=== PATIENT | male | born 1940 | race Caucasian/White ===

== ENCOUNTER 2024-06-06 15:33 | Emergency (ER) | payer MEDICARE, SELFPAY ==
--- NOTE | ~2024-06-06 | XR_ITS ---
EXAMINATION: XR chest 1V portable DATE: 06/06/2024 16:06 INDICATION: Cough and shortness of breath. TECHNIQUE: A single frontal view of the chest was obtained. COMPARISON: None. FINDINGS: A calcified left lung nodule is consistent with old granulomatous disease. No pleural effus ion or pneumothorax. The heart size is normal. The sternotomy wires are noted. IMPRESSION: 1. No acute cardiopulmonary disease. Reviewed, dictated and finalized at location A.
[2024-06-06 15:35] VITALS: O2SAT 91
--- NOTE | 2024-06-06 15:38 | ED.URI ---
HPI - URI/Sore Throat General Chief Complaint: Shortness of Breath/Dyspnea Stated Complaint: covid positive today Source: patient Mode of arrival: ambulatory Limitations: no limitations History of Present Illness HPI Narrative: 83-year-old male retirement resident with a history of dementia, diabetes mellitus, hypertension, BPH, COPD, HEDY on oxygen on a p.r.n. basis, CAD/CHF, atrial fibrillation on Xarelto, GERD, OA, chronic leg swelling and currently on cefuroxime presents to the ED for -- tested positive for COVID 20 minutes ago. patient is currently on Molnupiravir -- cough with mucopurulent sputum -- chronic shortness of breath. Patient is saturating 91% on room air. -- bilateral leg swelling with cellulitis for which he is currently on cefuroxime. No fever or chills no chest pain MD elicited complaint: cough Pertinent past history: COPD, asthma and other ( Tested positive for COVID prior to coming) Onset (ago): day(s) ( 2 days) Consistency: constant Severity: mild Description of mucous: yellow Able to tolerate fluids by mouth: Yes Associated symptoms: cough and shortness of breath Treatments prior to arrival: other ( patient is on Molnipiravir for COVID positive) Review of Systems Review of Systems: patient has a history of dementia Constitutional: Constitutional: Reports as per HPI and Reports no additional constitutional complaints Eyes: Eyes: Reports as per HPI and Reports no additional eye complaints ENT: Reports system reviewed and no additional complaints, except as documented and Reports as per HPI Cardiovascular: Cardiovascular: Reports as per HPI and Reports no additional cardiovascular complaints Respiratory: Respiratory: Reports as per HPI, Reports cough, Reports dyspnea and Reports wheezing Gastrointestinal: Gastrointestinal: Reports as per HPI and Reports no additional gastrointestinal complaints Genitourinary: Genitourinary: Reports no additional male genitourinary complaints Musculoskeletal: Musculoskeletal: Reports no additional musculoskeletal complaints and Reports as per HPI Integumentary/Breasts: Skin/Breast: Reports system reviewed and no additional complaints, except as docu Comments: bilateral leg swelling with erythema chronic venous stasis changes both legs Neurologic: Reports system reviewed and no additional complaints, except as documented and Reports as per HPI Psychiatric: Psychiatric: Reports no additional psychiatric complaints and Reports as per HPI Endocrine: Endocrine: Reports no additional endocrine complaints and Reports as per HPI Hematologic/Lymphatic: Hematologic/Lymphatic: Reports no additional hematologic/lymphatic complaints and Reports as per HPI Allergic/Immunologic: Allergic/Immunologic: Reports no additional allergic/immunologic complaints and Reports as per HPI [facility] Past Medical History Medical History (Updated 06/06/24 @ 16:58 by Bunny Alicea MD) Afib Asthma exacerbation in COPD BPH (benign prostatic hyperplasia) CAD (coronary artery disease) CHF (congestive heart failure) Dementia Diabetes mellitus GERD (gastroesophageal reflux disease) Hypertension OA (osteoarthritis) HEDY (obstructive sleep apnea) Surgical History Surgical History (Updated 06/06/24 @ 15:53 by Bunny Alicea MD) Coronary angioplasty status Social History Social History (Updated 06/06/24 @ 15:53 by Bunny Alicea MD) Social History: retirement resident Exam Narrative: temperature 36.2?. Oxygen saturation 91% on room air. Blood pressure 146/35 Const: General: no acute distress Nutritional Appearance: obese Orientation/consciousness: patient oriented x3 Limitations: no limitations HENMT: Head: normal to inspection Ears: external ears normal Face/Nose/Sinus: Normal external nose present Face and sinus: normal facial exam Mouth: Yes Normal oral and palatal mucosa present Throat: posterior oropharynx normal Eyes: Conjuncti
[2024-06-06 15:40] VITALS: BP 146/85; PULSE 78; RESP 24; TEMP 36.2; O2SAT 91
--- NOTE | 2024-06-06 15:55 | ECG_ITS ---
Test Date: 2024-06-06 16:09:00 Measurements Intervals [place] Rate: 69 P: 0 CT: 0 QRS: 52 QRSD: 90 T: 166 QT: 373 QTc: 400 Interpretive Statements ATRIAL FIBRILLATION NONSPECIFIC T-WAVE ABNORMALITY No previous ECG available for comparison Electronically Signed On 06-06-2024 17:00:47 CDT by Virgil Walsh M.D.
[2024-06-06 16:00] VITALS: BP 120/82; PULSE 71; RESP 22; O2SAT 91
[2024-06-06 16:08] LABS: Hematocrit 45.8 % (37.0-46.0); Hemoglobin 14.8 g/dL (12.4-15.3); Immature Platelet Fraction Pct 21.5 % (1.0-7.0); Mean Corpuscular HGB Conc 32.3 g/dL (32-36); Mean Corpuscular Hemoglobin 29.2 pg (27.0-31.0); Mean Corpuscular Volume 90.5 fL (78.0-102.0); Mean Platelet Volume 13.7 fl (8.7-11.0); Platelet Count Result 172 K/mm3 (150-420); Red Blood Count 5.06 M/mm3 (4.70-6.10); Red Cell Distribution Width 13.3 % (11.6-14.4); White Blood Count 6.9 K/mm3 (4.8-10.8)
[2024-06-06 16:23] LABS: Alanine Aminotransferase 16 U/L (16-63); Albumin Level 3.2 g/dL (3.4-5.0); Alkaline Phosphatase 281 U/L (46-116); Anion Gap 4 mmol/L (4-12); Aspartate Amino Transferase 23 U/L (15-37); Bilirubin,Total 0.6 mg/dL (0.00-1.00); Blood Urea Nitrogen 26 mg/dL (7-18); Carbon Dioxide 37 mmol/L (21-32); Chloride 99 mmol/L (98-108); Estimated CRCL calculation 59 ml/min; Estimated Glomerular Filt Rate > 60; Glucose 248 mg/dL (70-99); NT Pro B Type Natriuretic Pept 258 pg/mL (0-450); Osmolality Calculated 302 mOsm/kg (285-295); Potassium 4.7 mmol/L (3.5-5.1); Sodium 140 mmol/L (136-145); Total Protein 6.9 g/dL (6.4-8.2); Troponin I 11.1 ng/L (0.00-60.4)
[2024-06-06 16:39] LABS: Band Neutrophils Percent 0 % (0-6); Eosinophils Percent Manual 3 % (1-6); Lymphocytes Absolute Manual 0.82 K/mm3 (1.1-4.5); Lymphocytes Percent Manual 12 % (18-44); Monocytes Absolute Manual 0.96 K/mm3 (0.1-0.90); Monocytes Percent Manual 14 % (3-9); Neutrophils Absolute Manual 4.89 K/mm3 (1.3-6.7); Neutrophils Percent Manual 71 % (46-73); Platelet Estimate Adequate (Adequate); Total Cells Counted 100
[2024-06-06 17:01] VITALS: BP 128/78; PULSE 68; RESP 20; TEMP 36.9; O2SAT 92
--- NOTE | 2024-06-06 17:25 | PC.NURSE ---
pt return to retirement via personal wheelchair with retirement staff at this time. pt stable and alert. declined need for personal oxygen for transport back to retirement. pt had no need for oxygen while in er. pt departed with all personal belongings , cane, cell phone and glasses.
== END 2024-06-06 17:04 ==
PROVIDERS: Emergency Provider Internal Medicine Critical Care Medicine; PCP Family Medicine
DX: U07.1 COVID-19 (principal); I48.20 Chronic atrial fibrillation, unspecified; I11.0 Hypertensive heart disease with heart failure; I50.9 Heart failure, unspecified; J44.9 Chronic obstructive pulmonary disease, unspecified; F03.90 Unspecified dementia, unspecified severity, without behavioral disturbance, psychotic disturbance, mood disturbance, and anxiety; E11.9 Type 2 diabetes mellitus without complications; I25.10 Atherosclerotic heart disease of native coronary artery without angina pectoris; I48.91 Unspecified atrial fibrillation; Z79.01 Long term (current) use of anticoagulants; Z79.899 Other long term (current) drug therapy; Z99.81 Dependence on supplemental oxygen
CPT/HCPCS: 36415; 71045; 80053; 83880; 84484; 85025; 85055; 93005; 99284

== ENCOUNTER 2024-06-21 17:28 | Inpatient (IN) | payer MEDICARE, SELFPAY ==
[2024-06-21] VITALS (21 sets, daily range): BP systolic 99–136; BP diastolic 61–90; PULSE 41–67; RESP 21–32; TEMP 36.4–36.9; O2SAT 83–99; BMI 41.6
--- NOTE | ~2024-06-21 | XR_ITS ---
XR chest 1V portable Ordering provider: Waldemar Ramos MD History: 83 years Male with . COPD/pneumonia. 24 hour f/u . Comparison: June 21, 2024 FINDINGS: MEDIASTINUM: The cardiac silhouette is slightly enlarged. Congestive aman. Postoperative changes in the mediastinum. LUNGS: No infiltrates, effusions or pneumothorax. OTHER: No free air under the diaphragm. IMPRESSION: No acute cardiopulmonary pathology. Reviewed, dictated and finalized at location A.
--- NOTE | ~2024-06-21 | XR_ITS ---
EXAMINATION: XR chest 1V portable Exam Date/Time: 06/21/2024 18:00 CDT HISTORY: shortness of breath Comparison: 06/06/2024. RESULT: Lines, tubes, and devices: Intact sternotomy wires. Lungs and pleura: Low volumes with crowding. Mild diffuse reticular opacities. Minimal streaky bibas ilar opacities, likely scar/atelectasis. Calcified left lower lung granuloma. Cardiomediastinal silhouette: Stable. Other: No acute osseous or upper abdominal finding. IMPRESSION: Mild interstitial edema. Reviewed, dictated and finalized at location K. IMPRESSION: Mild interstitial edema.
--- NOTE | 2024-06-21 17:34 | ECG_ITS ---
Test Date: 2024-06-21 17:57:11 Measurements Intervals [place] Rate: 64 P: 0 CO: 0 QRS: 20 QRSD: 98 T: -16 QT: 408 QTc: 421 Interpretive Statements ATRIAL FIBRILLATION NONSPECIFIC ST & T-WAVE ABNORMALITY ABNORMAL RHYTHM ECG Compared to ECG 06/06/2024 16:09:00 No significant changes Electronically Signed On 06-22-2024 13:00:12 CDT by Waldemar Nevarez M.D.
[2024-06-21] MEDS: methylPREDNISolone SOD SUCC 125 MG VIAL IV PUSH (17:45)
[2024-06-21] MEDS: FUROSEMIDE INJ 40 MG/4 ML VIAL IV PUSH (17:45)
[2024-06-21] MEDS: IPRATROPIUM 0.5 MG/ALBUTEROL SULFATE 2.5 MG AMPUL.NEB 3 ML INHALATION ×2 (17:45→23:56)
[2024-06-21 17:59] LABS: Hematocrit 44.4 % (37.0-46.0); Hemoglobin 13.7 g/dL (12.4-15.3); Immature Platelet Fraction Pct 20.4 % (1.0-7.0); Mean Corpuscular HGB Conc 30.9 g/dL (32-36); Mean Corpuscular Hemoglobin 29.4 pg (27.0-31.0); Mean Corpuscular Volume 95.3 fL (78.0-102.0); Mean Platelet Volume 13.9 fl (8.7-11.0); Platelet Count Result 158 K/mm3 (150-420); Red Blood Count 4.66 M/mm3 (4.70-6.10); Red Cell Distribution Width 13.7 % (11.6-14.4); White Blood Count 6.8 K/mm3 (4.8-10.8)
[2024-06-21] MEDS: MAGNESIUM SULF 2 GM/WATER 50ML 2 GM/50 ML BAG IVPB (18:01)
[2024-06-21 18:14] LABS: D Dimer 0.22 mg/L (0.19-0.50); INR 1.2; Partial Thromboplastin Time 30.2 Sec (23.9-30.70); Prothrombin Time 12.7 Seconds (9.50-12.1)
[2024-06-21 18:20] LABS: Band Neutrophils Percent 0 % (0-6); Basophils Absolute Manual 0.06 K/mm3 (0-0.1); Basophils Percent Manual 1 % (0-1); Eosinophils Percent Manual 6 % (1-6); Lymphocytes Percent Manual 25 % (18-44); Monocytes Absolute Manual 0.47 K/mm3 (0.1-0.90); Monocytes Percent Manual 7 % (3-9); Neutrophils Absolute Manual 4.14 K/mm3 (1.3-6.7); Neutrophils Percent Manual 61 % (46-73); Platelet Estimate Adequate (Adequate); Total Cells Counted 100
[2024-06-21 18:21] LABS: Alanine Aminotransferase 14 U/L (16-63); Albumin Level 3.1 g/dL (3.4-5.0); Alkaline Phosphatase 288 U/L (46-116); Anion Gap 0 mmol/L (4-12); Aspartate Amino Transferase 12 U/L (15-37); Bilirubin,Total 0.4 mg/dL (0.00-1.00); Blood Urea Nitrogen 13 mg/dL (7-18); Calcium 9.2 mg/dL (8.5-10.1); Carbon Dioxide 43 mmol/L (21-32); Chloride 99 mmol/L (98-108); Estimated CRCL calculation 65 ml/min; Estimated Glomerular Filt Rate > 60; Glucose 153 mg/dL (70-99); Magnesium 1.8 mg/dL (1.8-2.4); NT Pro B Type Natriuretic Pept 331 pg/mL (0-450); Osmolality Calculated 297 mOsm/kg (285-295); Potassium 4.1 mmol/L (3.5-5.1); Sodium 142 mmol/L (136-145); Total Protein 6.6 g/dL (6.4-8.2)
[2024-06-21 18:41] LABS: Influenza A QL RT-PCR Negative (Negative); Influenza B QL RT-PCR Negative (Negative); RSV RNA, RT-PCR Negative (Negative); SARS-CoV-2 RNA PCR Negative (Negative)
[2024-06-21] MEDS: GLUCAGON FOR INJ 1 MG VIAL 2 MG IV PUSH (18:55)
--- NOTE | 2024-06-21 19:15 | ED.SOB ---
HPI - SOB/Dyspnea General Chief Complaint: Shortness of Breath/Dyspnea Stated Complaint: COUGH Time Seen by Provider: 06/21/24 17:30 Source: patient and EMS Mode of arrival: EMS Limitations: physical limitation and dementia History of Present Illness HPI Narrative: this is a 89-year-old male with history atrial fibrillation CHF obstructive sleep apnea presents from [facility] with increased shortness of breath over the past couple hours with a nonproductive cough patient recently was diagnosed with COVID approximately 10 days ago. Patient denies having any chest pain no nausea vomiting no abdominal pain no fever chills. MD elicited complaint: shortness of breath and cough Pertinent past history: congestive heart failure Onset (ago): hour(s) Related Data Home Medications Medication Instructions Recorded Confirmed aspirin 81 mg tablet,delayed 81 mg PO DAILY 06/07/24 06/21/24 release (Adult Aspirin Regimen) atorvastatin 10 mg tablet 10 mg PO QHS 06/07/24 06/21/24 cetirizine 10 mg tablet 10 mg PO DAILY PRN ALLERGIES 06/07/24 06/21/24 diltiazem HCl 240 mg capsule,24 240 mg PO DAILY 06/07/24 06/21/24 hr,extended release doxazosin 2 mg tablet 2 mg PO DAILY 06/07/24 06/21/24 furosemide 40 mg tablet 40 mg PO QAM 06/07/24 06/21/24 insulin glargine 100 unit/mL 42 unit subcut QPM 06/07/24 06/21/24 subcutaneous solution insulin lispro 100 unit/mL 1 sliding scale dose subcut 06/07/24 06/21/24 subcutaneous pen USEASDIRECTD magnesium oxide 240 mg PO DAILY 06/07/24 06/21/24 metoprolol tartrate 50 mg tablet 50 mg PO DAILY 06/07/24 06/21/24 omeprazole 20 mg tablet,delayed 20 mg PO DAILY 06/07/24 06/21/24 release potassium chloride 20 mEq 20 meq PO DAILY 06/07/24 06/21/24 tablet,extended release rivaroxaban 15 mg tablet 15 mg PO QPM 06/07/24 06/21/24 Allergies Allergy/AdvReac Type Severity Reaction Status Date / Time No Known Allergies Allergy Verified 06/07/24 12:57 Review of Systems Review of Systems: All systems reviewed & are unremarkable except as noted in HPI and below PMFSH Past Medical History Medical History Afib Asthma exacerbation in COPD BPH (benign prostatic hyperplasia) CAD (coronary artery disease) CHF (congestive heart failure) Dementia Diabetes mellitus GERD (gastroesophageal reflux disease) Hypertension OA (osteoarthritis) HEDY (obstructive sleep apnea) Surgical History Surgical History Coronary angioplasty status Social History Social History Social History: [facility] resident Smoking status: Never smoker Exam Const: General: no acute distress and alert Nutritional Appearance: obese Limitations: physical limitations HENMT: Head: normal to inspection Chest: Chest palpation & inspection: normal inspection of the chest Resp: Effort & Inspection: normal respiratory effort Auscultation: wheezes and diminished lung sounds Cardio: Rate: regular rate Rhythm: abnormal rhythm GI: GI Palp: Yes Soft to palpation Auscultation: normal bowel sounds : General: Yes bladder normal to palpation Neuro: General: patient oriented x3, moves all extremities, no meningeal signs and no focal motor deficits Extrem: General: edema Course Course Emergency Course: patient presented with some shortness of, O2 sats initially in the low 90s and on 2L of O2 is satting at 95%, EKG performed shows that he has atrial fibrillation heart rate 64. Patient while sleeping does Jose Alfredo down to the 38 to 40 range but then comes back up to the 60s when alert and awake. Patient is denies any chest pain there is no nausea or vomiting. Chest x-ray performed shows that there is some linear opacities, has a negative COVID, his BNP is 331 with a negative troponin negative D-dimer. Patient with linear opacities on chest x-ray started ceftria
[2024-06-21] MEDS: SODIUM CHLORIDE 0.9% IV 1,000 ML 999 ML IV CONT (19:27)
[2024-06-21] MEDS: AZITHROMYCIN 500 MG/NS 250 ML 500 MG/250 ML BAG 250 MG IVPB (19:27)
--- NOTE | 2024-06-21 19:33 | PC.NURSE ---
Report received, pt resting, monitored per orders, POC discussed and ERP will admit for 23 hr obs. Pt is somewhat alert, slightly lethargic but awakens to voice. He is able to help move himself to clean and take off urinated depend at this time.
--- NOTE | 2024-06-21 19:41 | PC.NURSE ---
Called KATIE Frances on 2nd floor and report given. Pt will go to Rm 207.
[2024-06-21] MEDS: ATORVASTATIN 10 MG TABLET PO (21:17)
[2024-06-21] MEDS: SODIUM CHLORIDE 0.9% IV 1,000 ML 100 ML IV CONT (21:17)
[2024-06-21] MEDS: RIVAROXABAN 15 MG TABLET PO (21:17)
[2024-06-21] MEDS: INSULIN GLARGINE (*BKC) 1,000 UNITS/10 ML VIAL 42 UNITS SUB-Q (21:37)
[2024-06-21 21:42] LABS: Glucose Point of Care 184 mg/dl (65-105)
--- NOTE | 2024-06-21 21:50 | ADMGEN ---
This patient, Arsenio Contreras Sr., was admitted to 2nd Floor Room 207-1. Patient oriented to hospital policies and general routines including ID bracelet, bed and alarms, visiting hours, pain management, procedures, bathroom and other care routines, personal items, smoking policy, room service/diet, and visiting hours. Information on how to activate the Rapid Response Team has been discussed. Patient are encouraged to report perceived risks to care and to ask questions if they do not understand what they are told or what they should do.
[2024-06-21] MEDS: methylPREDNISolone SOD SUCC 40 MG VIAL IV PUSH (23:56)
[2024-06-22] VITALS (13 sets, daily range): BP systolic 118–163; BP diastolic 59–75; PULSE 63–98; RESP 16–24; TEMP 36–36.5; O2SAT 89–99
[2024-06-22 05:15] LABS: Hematocrit 40.9 % (37.0-46.0); Hemoglobin 12.8 g/dL (12.4-15.3); Immature Platelet Fraction Pct 18.1 % (1.0-7.0); Mean Corpuscular HGB Conc 31.3 g/dL (32-36); Mean Corpuscular Hemoglobin 29.7 pg (27.0-31.0); Mean Corpuscular Volume 94.9 fL (78.0-102.0); Mean Platelet Volume 13.6 fl (8.7-11.0); Platelet Count Result 150 K/mm3 (150-420); Red Blood Count 4.31 M/mm3 (4.70-6.10); Red Cell Distribution Width 13.4 % (11.6-14.4); White Blood Count 5.9 K/mm3 (4.8-10.8)
[2024-06-22] MEDS: IPRATROPIUM 0.5 MG/ALBUTEROL SULFATE 2.5 MG AMPUL.NEB 3 ML INHALATION ×3 (05:28→18:27)
[2024-06-22 05:29] LABS: Band Neutrophils Percent 0 % (0-6); Basophils Percent Manual 0 % (0-1); Eosinophils Percent Manual 0 % (1-6); Lymphocytes Absolute Manual 0.41 K/mm3 (1.1-4.5); Lymphocytes Percent Manual 7 % (18-44); Metamyelocytes Percent 0 %; Monocytes Percent Manual 0 % (3-9); Neutrophils Absolute Manual 5.48 K/mm3 (1.3-6.7); Neutrophils Percent Manual 93 % (46-73); Platelet Estimate Adequate (Adequate); Total Cells Counted 100
[2024-06-22 05:30] LABS: Alanine Aminotransferase 13 U/L (16-63); Albumin Level 2.7 g/dL (3.4-5.0); Alkaline Phosphatase 263 U/L (46-116); Anion Gap 2 mmol/L (4-12); Aspartate Amino Transferase 14 U/L (15-37); Bilirubin,Total 0.4 mg/dL (0.00-1.00); Blood Urea Nitrogen 14 mg/dL (7-18); Calcium 8.7 mg/dL (8.5-10.1); Carbon Dioxide 40 mmol/L (21-32); Chloride 100 mmol/L (98-108); Estimated CRCL calculation 70 ml/min; Estimated Glomerular Filt Rate > 60; Glucose 227 mg/dL (70-99); Osmolality Calculated 301 mOsm/kg (285-295); Potassium 4.6 mmol/L (3.5-5.1); Sodium 142 mmol/L (136-145); Total Protein 5.9 g/dL (6.4-8.2)
[2024-06-22] MEDS: methylPREDNISolone SOD SUCC 40 MG VIAL IV PUSH ×3 (05:31→17:25)
[2024-06-22 05:49] LABS: NT Pro B Type Natriuretic Pept 297 pg/mL (0-450)
[2024-06-22] MEDS: SODIUM CHLORIDE 0.9% IV 1,000 ML 100 ML IV CONT (06:46)
[2024-06-22 07:48] LABS: Glucose Point of Care 219 mg/dl (65-105)
[2024-06-22] MEDS: INSULIN HUMAN LISPRO (*BKC) 1,000 UNITS/10 ML VIAL SUB-Q ×3 (08:15→17:14)
[2024-06-22] MEDS: MAGNESIUM OXIDE 400 MG TABLET 200 MG PO (08:17)
[2024-06-22] MEDS: POTASSIUM CHLORIDE 20 MEQ ER TABLET PO (08:17)
[2024-06-22] MEDS: DOXAZOSIN MESYLATE 2 MG TABLET PO (08:17)
[2024-06-22] MEDS: FUROSEMIDE 40 MG TABLET PO (08:19)
[2024-06-22] MEDS: PANTOPRAZOLE 40 MG TABLET PO (08:19)
[2024-06-22] MEDS: ASPIRIN 81 MG ENTERIC TABLET PO (08:19)
--- NOTE | 2024-06-22 11:13 | PM.IMHP ---
H&P: HPI History of Present Illness Date/Time: 06/22/24 11:13 Chief Complaint: shortness of breath Narrative: This is an 83-year-old male with a past medical history significant for COPD, AFib, CAD s/p stents and CABG x 2, heart failure with preserved EF, DJD, diabetes, GERD, BPH, HEDY on CPAP, and dementia baseline orientation A&O x1 who presented from a [facility] with complaints of shortness of breath. Given his dementia, the history is obtained through review of the medical record. When I asked the patient why he came to the emergency room he states that he does not know. I asked him if he normally wears oxygen at baseline and he states I guess I do . On exam he is resting in bed on 2 L nasal cannula in no acute distress. He denies headache, dizziness, chest pain, abdominal pain, nausea, or vomiting. He does tell me that he chronically has shortness of breath but he does not feel like it is worse at this time. He also reports a chronic cough but states he is coughing up more sputum than usual and it is green in color. He denies fever or chills. States he is eating and drinking without difficulty. He reports his last bowel movement was yesterday and is urinating appropriately. The patient had a recent admission on 06/02/24 at [facility] for new atrial fibrillation with RVR, acute on chronic diastolic heart failure, and bilateral cellulitis of the lower extremities. He was transferred there from [facility] in [place] after presenting via EMS after being found in a ditch in his car. His daughter reported at that time that he is confused at baseline but was becoming more forgetful. According to the records he was missing from home for 7 hours before police found him and EMS was called. He normally lives alone on his daughters property but is currently a swing bed patient at [facility] and [facility]. In the emergency room labs were mostly unremarkable. He had a normal white count of 6.8, PT 12.7, INR 1.2, CO2 43, glucose 153, AST 12, ALT 14, alk-phos 288, and albumin 3.1. Upper respiratory viral panel was negative. chest x-ray was performed and showed mild interstitial edema. blood cultures were obtained and are pending. EKG showed atrial fibrillation with a rate of 64. In the ER he had an episode of bradycardia down to 38 beats per minute. He was given glucagon for possible beta-marianne toxicity and monitored overnight on telemetry without recurrence of bradycardia. He was started on IV fluids,Rocephin, azithromycin, and IV steroids for possible pneumonia versus COPD exacerbation. He was also given IV Lasix 40 mg x 1. He was admitted to the medical floor under the hospitalist service for further management of shortness of breath. Review of Systems Review of Systems: ROS unobtainable: Yes unobtainable due to medical condition PMFSH Past Medical History Medical History Afib Asthma exacerbation in COPD BPH (benign prostatic hyperplasia) CAD (coronary artery disease) CHF (congestive heart failure) Dementia Diabetes mellitus GERD (gastroesophageal reflux disease) Hypertension OA (osteoarthritis) HEDY (obstructive sleep apnea) Surgical History Surgical History Coronary angioplasty status Social History Social History Social History: [facility] resident Smoking status: Never smoker Second hand tobacco smoke exposure: No Alcohol intake: never Substance use: never Substance use type: does not use Do You Feel Safe in your Home?: Yes Lack of Transportation: No Lack of Food: Never True Current Housing: I Have Housing Concerned About Future Housing: No Difficulty Paying Gas/Electric Bills: No Difficulty Paying for Meds: No Currently Unemployed: No Education: High School Diploma/GED Difficulty w/ Childc
[2024-06-22 11:50] LABS: Glucose Point of Care 369 mg/dl (65-105)
[2024-06-22] MEDS: dilTIAZem HCL 30 MG TABLET 60 MG PO ×2 (12:13→17:24)
--- NOTE | 2024-06-22 15:06 | PC.NURSE ---
Patient had diltiazem 60 mg at noon med pass and pulse currently in low to mid 70s.
[2024-06-22 16:41] LABS: Glucose Point of Care 301 mg/dl (65-105)
[2024-06-22] MEDS: AZITHROMYCIN 500 MG/NS 250 ML 500 MG/250 ML BAG 250 MG IVPB (17:18)
[2024-06-22] MEDS: RIVAROXABAN 15 MG TABLET PO (17:24)
[2024-06-22] MEDS: INSULIN GLARGINE (*BKC) 1,000 UNITS/10 ML VIAL 42 UNITS SUB-Q (17:27)
[2024-06-22] MEDS: ATORVASTATIN 10 MG TABLET PO (20:29)
[2024-06-22 22:14] LABS: Glucose Point of Care 314 mg/dl (65-105)
[2024-06-23] VITALS (14 sets, daily range): BP systolic 120–144; BP diastolic 56–86; PULSE 83–103; RESP 17–24; TEMP 36.2–36.9; O2SAT 90–97
[2024-06-23] MEDS: IPRATROPIUM 0.5 MG/ALBUTEROL SULFATE 2.5 MG AMPUL.NEB 3 ML INHALATION ×4 (00:22→18:20)
[2024-06-23] MEDS: dilTIAZem HCL 30 MG TABLET 60 MG PO ×4 (00:24→17:39)
[2024-06-23] MEDS: methylPREDNISolone SOD SUCC 40 MG VIAL IV PUSH ×2 (00:29→05:57)
[2024-06-23 05:48] LABS: Hemoglobin 12.5 g/dL (12.4-15.3); Immature Granulocyte Percent A 0.7 % (0.0-0.0); Immature Platelet Fraction Pct 16.6 % (1.0-7.0); Lymphocytes Absolute Auto 0.38 K/mm3 (1.10-4.50); Lymphocytes Percent Auto 2.6 % (18.0-42.0); Mean Corpuscular HGB Conc 32.1 g/dL (32-36); Mean Corpuscular Hemoglobin 29.7 pg (27.0-31.0); Mean Corpuscular Volume 92.6 fL (78.0-102.0); Mean Platelet Volume 13.7 fl (8.7-11.0); Monocytes Absolute Auto 0.11 K/mm3 (0.10-0.90); Monocytes Percent Auto 0.8 % (2.0-11.0); Neutrophils Absolute Auto 13.77 K/mm3 (1.70-7.20); Neutrophils Percent Auto 95.9 % (50.0-70.0); Platelet Count Result 163 K/mm3 (150-420); Red Blood Count 4.21 M/mm3 (4.70-6.10); Red Cell Distribution Width 13.7 % (11.6-14.4); White Blood Count 14.4 K/mm3 (4.8-10.8)
[2024-06-23 05:57] LABS: Alanine Aminotransferase 10 U/L (16-63); Albumin Level 2.9 g/dL (3.4-5.0); Alkaline Phosphatase 244 U/L (46-116); Anion Gap 2 mmol/L (4-12); Aspartate Amino Transferase 10 U/L (15-37); Bilirubin,Total 0.4 mg/dL (0.00-1.00); Blood Urea Nitrogen 27 mg/dL (7-18); Carbon Dioxide 38 mmol/L (21-32); Chloride 100 mmol/L (98-108); Estimated CRCL calculation 57 ml/min; Estimated Glomerular Filt Rate 60; Glucose 317 mg/dL (70-99); Magnesium 2.1 mg/dL (1.8-2.4); Osmolality Calculated 307 mOsm/kg (285-295); Potassium 4.5 mmol/L (3.5-5.1); Sodium 140 mmol/L (136-145)
--- NOTE | 2024-06-23 07:27 | PM.IMPN ---
Progress Note: A&P Assessment and Plan (1) COPD (chronic obstructive pulmonary disease): Qualifiers: COPD type: unspecified COPD Qualified Code(s): J44.9 - Chronic obstructive pulmonary disease, unspecified Code(s): J44.9 - Chronic obstructive pulmonary disease, unspecified Status: Inactive Assessment and Plan: patient presents with complaints of increased shortness of breath, increased sputum production. He chronically wears 2 L nasal cannula and uses CPAP night for HEDY. On exam he has diminished lung sounds with expiratory wheeze. azithromycin started, he received 1 dose of Rocephin in the ER. Less suspicious of pneumonia more concern for COPD exacerbation. Hold off on adding Rocephin for now. Should he worsen clinically then I will resume. IV steroids with methylprednisone 60 mg q.6. Wheezing has resolved. Will transition to PO prednisone. Blood glucose has been elevated with addition of steroids. Will add 7 units TID with meals and SSI. Duo-Nebs q.6 Incentive spirometer Suspect his shortness of breath may have been related to his bradycardia (2) Afib: Qualifiers: Atrial fibrillation type: unspecified Qualified Code(s): I48.91 - Unspecified atrial fibrillation Code(s): I48.91 - Unspecified atrial fibrillation Status: Acute Assessment and Plan: Recently in a-fib RVR converted with IV diltiazem. He was started on diltiazem 240 mg ER PO daily and metoprolol succinate 50 mg PO daily at discharge. Here now with shortness of breath and bradycardia (heart rate in 30s) in the ED. Anticoagulation with Xarelto He was given glucagon for possible beta marianne toxicity On telemetry he is in a-fib with rates 80-90's Continue to hold metoprolol Start diltiazem 60 mg every 6 hours If he has no more recurrence of bradycardia, can transition back to ER diltiazem. (3) CHF (congestive heart failure): Code(s): I50.9 - Heart failure, unspecified Status: Acute Assessment and Plan: Diastolic HF with preserved EF per OSH records Continue home medications of Lasix 40 mg daily. He received 1 x dose of IV lasix 40 mg in the ED. Strict I&O, daily weights Heart Healthy, DM diet RAMILA wraps to BLE (4) HEDY (obstructive sleep apnea): Code(s): G47.33 - Obstructive sleep apnea (adult) (pediatric) Status: Acute Assessment and Plan: CPAP home settings. Will ask [facility] to bring his CPAP Plan DVT prophylaxis: Xarelto Glycemic control: Sliding scale insulin high dose with addition of 7 units TID with meals, a.c. HS Accu-Cheks, hypoglycemia protocol, Lantus 42 units Code Status: Full code Disposition: 83-year-old male who presents from local [facility] as a [facility] patient complains of shortness of breath. Undo have a COPD exacerbation and bradycardia. Rate control medications were held, patient is placed on telemetry, and received IM glucagon possible beta-marianne toxicity. PT/OT are consulted. Medication reconciliation obtained via the following: Nurse completed on admission The file time of this note does not necessarily represent the time the patient was seen. Subjective Date/time seen: 06/23/24 07:27 Interval history: This is an 83-year-old male with a past medical history significant for COPD chronically on 2 L NC, AFib on xarelto, CAD s/p stents and CABG x 2, heart failure with preserved EF, DJD, diabetes, GERD, BPH, HEDY on CPAP, and dementia baseline orientation A&O x1 who [facility] from a [facility] with complaints of shortness of breath. 06/23: no acute events overnight. He still feels congested and having his productive cough but he is no longer having expiratory wheeze. Pleasantly confused and oriented to self only which is his baseline. Review of Systems Review of Systems: ROS unobtain
[2024-06-23] MEDS: INSULIN HUMAN LISPRO (*BKC) 1,000 UNITS/10 ML VIAL SUB-Q (08:25)
[2024-06-23] MEDS: INSULIN HUMAN LISPRO (*BKC) 1,000 UNITS/10 ML VIAL 7 UNITS SUB-Q ×3 (08:25→17:39)
[2024-06-23] MEDS: MAGNESIUM OXIDE 400 MG TABLET 200 MG PO (08:26)
[2024-06-23] MEDS: PANTOPRAZOLE 40 MG TABLET PO (08:26)
[2024-06-23] MEDS: ASPIRIN 81 MG ENTERIC TABLET PO (08:26)
[2024-06-23] MEDS: POTASSIUM CHLORIDE 20 MEQ ER TABLET PO (08:26)
[2024-06-23] MEDS: LORATADINE 10 MG TABLET PO (08:26)
[2024-06-23] MEDS: DOXAZOSIN MESYLATE 2 MG TABLET PO (08:27)
[2024-06-23] MEDS: FUROSEMIDE 40 MG TABLET PO (08:27)
[2024-06-23 11:35] LABS: Glucose Point of Care 422 mg/dl (65-105)
--- NOTE | 2024-06-23 11:40 | PC.NURSE ---
DONNA Ivy notified of patients blood sugar of 422. N.O. received for insulin 10 units of lipro x1 in addition to scheduled 7 unit of lispro.
[2024-06-23] MEDS: predniSONE 20 MG TABLET 40 MG PO (11:49)
[2024-06-23] MEDS: INSULIN HUMAN LISPRO (*BKC) 1,000 UNITS/10 ML VIAL 10 UNITS SUB-Q ×2 (11:49→17:39)
--- NOTE | 2024-06-23 14:30 | PC.NURSE ---
DONNA Ivy notified of patient pulling IV site out and not wanting it restarted. N.O. received to change IV azithromycin to P.O.
[2024-06-23 16:29] LABS: Glucose Point of Care 401 mg/dl (65-105)
--- NOTE | 2024-06-23 16:50 | PC.NURSE ---
Keisha Vázquez, Hospitalist, notified that patient's heart rate is currently 93 and blood sugar is currently 401. New orders received.
[2024-06-23] MEDS: RIVAROXABAN 15 MG TABLET PO (17:39)
[2024-06-23 20:26] LABS: Glucose Point of Care 358 mg/dl (65-105)
[2024-06-23] MEDS: INSULIN GLARGINE (*BKC) 1,000 UNITS/10 ML VIAL 50 UNITS SUB-Q (20:27)
[2024-06-23] MEDS: METOPROLOL TARTRATE 25 MG TABLET PO (20:27)
[2024-06-23] MEDS: ATORVASTATIN 10 MG TABLET PO (20:27)
--- NOTE | 2024-06-24 00:04 | PC.NURSE ---
This RN found pt sitting at bedside attempting to get up independently. This RN asked the pt where he was going to which the pt replied I'm going home. This RN reminded pt it is around midnight. Pt replied, I don't care I wanna go fucking home. Pt proceeded w/taking off his telemetry unit independently and pt is now refusing to wear the unit. This RN attempted to educate the pt on why he was on telemetry and the risks of not having it on and pt verbalized he understood and still wanted the equipment off. This RN was able to communicate w/the pt that is would be better to wait until morning to go home. This RN then assisted pt w/getting dressed so per pt I'll be ready to go home, I'm ready to go home. Pt now agreeable to laying in bed to get some rest. Sonal Maldonado (charge nurse) attempted to contact the family and spoke w/the pt's granddaughter. Granddaughter communicated to Sonal that she will try to get a hold of someone to see if we can either calm the pt or see where to proceed further.
[2024-06-24] MEDS: IPRATROPIUM 0.5 MG/ALBUTEROL SULFATE 2.5 MG AMPUL.NEB 3 ML INHALATION ×3 (00:16→13:00)
--- NOTE | 2024-06-24 00:30 | PC.NURSE ---
Spoke to Patricia Mckoy, pt's granddaughter and told her we were able to get pt back into bed and calmed down. Granddaughter was relieved to hear this and voiced no other concerns.
--- NOTE | 2024-06-24 02:20 | PC.NURSE ---
Pt found missing from his room. Upon searching, the pt located on the first floor, and returned back to his room w/o incident.
--- NOTE | 2024-06-24 02:35 | PC.NURSE ---
Pt's family notified of pt's restlessness and attempt to leave the facility. Family told that pt was back in his room and cooperating with staff and pt didnt voice any other concerns.
[2024-06-24 05:13] VITALS: PULSE 80; RESP 20; O2SAT 95
[2024-06-24 05:19] VITALS: PULSE 91; RESP 20; O2SAT 95
[2024-06-24 05:23] LABS: Hematocrit 40.2 % (37.0-46.0); Hemoglobin 12.9 g/dL (12.4-15.3); Immature Platelet Fraction Pct 18.9 % (1.0-7.0); Mean Corpuscular HGB Conc 32.1 g/dL (32-36); Mean Corpuscular Hemoglobin 29.9 pg (27.0-31.0); Mean Corpuscular Volume 93.1 fL (78.0-102.0); Mean Platelet Volume 13.5 fl (8.7-11.0); Platelet Count Result 165 K/mm3 (150-420); Red Blood Count 4.32 M/mm3 (4.70-6.10); White Blood Count 16.8 K/mm3 (4.8-10.8)
[2024-06-24 05:38] LABS: Alanine Aminotransferase 15 U/L (16-63); Alkaline Phosphatase 249 U/L (46-116); Anion Gap 0 mmol/L (4-12); Aspartate Amino Transferase 14 U/L (15-37); Bilirubin,Total 0.4 mg/dL (0.00-1.00); Blood Urea Nitrogen 33 mg/dL (7-18); Calcium 9.3 mg/dL (8.5-10.1); Carbon Dioxide 39 mmol/L (21-32); Chloride 100 mmol/L (98-108); Estimated CRCL calculation 61 ml/min; Estimated Glomerular Filt Rate > 60; Glucose 241 mg/dL (70-99); Magnesium 2.1 mg/dL (1.8-2.4); Osmolality Calculated 303 mOsm/kg (285-295); Potassium 4.6 mmol/L (3.5-5.1); Sodium 139 mmol/L (136-145); Total Protein 6.2 g/dL (6.4-8.2)
[2024-06-24 05:40] LABS: Band Neutrophils Percent 0 % (0-6); Basophils Percent Manual 0 % (0-1); Eosinophils Percent Manual 0 % (1-6); Lymphocytes Percent Manual 3 % (18-44); Monocytes Percent Manual 6 % (3-9); Neutrophils Absolute Manual 15.28 K/mm3 (1.3-6.7); Neutrophils Percent Manual 91 % (46-73); Platelet Estimate Adequate (Adequate); Total Cells Counted 100
[2024-06-24] MEDS: dilTIAZem HCL 30 MG TABLET 60 MG PO (05:46)
[2024-06-24 08:00] VITALS: BP 145/68; PULSE 82; RESP 18; TEMP 36.2; O2SAT 94
[2024-06-24] MEDS: INSULIN HUMAN LISPRO (*BKC) 1,000 UNITS/10 ML VIAL 7 UNITS SUB-Q ×2 (09:25→11:48)
[2024-06-24] MEDS: INSULIN HUMAN LISPRO (*BKC) 1,000 UNITS/10 ML VIAL SUB-Q ×2 (09:25→11:48)
[2024-06-24 09:26] VITALS: PULSE 82
[2024-06-24] MEDS: predniSONE 20 MG TABLET 40 MG PO (09:26)
[2024-06-24] MEDS: DOXAZOSIN MESYLATE 2 MG TABLET PO (09:26)
[2024-06-24] MEDS: AZITHROMYCIN 250 MG TABLET 500 MG PO (09:26)
[2024-06-24] MEDS: dilTIAZem HCL CD 240 MG CAP.24HR PO (09:26)
[2024-06-24] MEDS: LORATADINE 10 MG TABLET PO (09:26)
[2024-06-24] MEDS: ASPIRIN 81 MG ENTERIC TABLET PO (09:26)
[2024-06-24] MEDS: METOPROLOL TARTRATE 25 MG TABLET PO (09:26)
[2024-06-24] MEDS: MAGNESIUM OXIDE 400 MG TABLET 200 MG PO (09:26)
[2024-06-24] MEDS: FUROSEMIDE 40 MG TABLET PO (09:26)
[2024-06-24] MEDS: POTASSIUM CHLORIDE 20 MEQ ER TABLET PO (09:27)
[2024-06-24] MEDS: PANTOPRAZOLE 40 MG TABLET PO (09:27)
[2024-06-24 11:45] LABS: Glucose Point of Care 287 mg/dl (65-105)
--- NOTE | 2024-06-24 14:13 | PM.DS ---
DS: Admitting Diagnosis Discharge Date 06/24/24 Admitting Diagnosis shortness of breath DS: Discharge Diagnosis Discharge Diagnosis (1) COPD (chronic obstructive pulmonary disease): Qualifiers: COPD type: unspecified COPD Qualified Code(s): J44.9 - Chronic obstructive pulmonary disease, unspecified Code(s): J44.9 - Chronic obstructive pulmonary disease, unspecified Status: Inactive Assessment and Plan: patient presents with complaints of increased shortness of breath, increased sputum production. He chronically wears 2 L nasal cannula and uses CPAP night for HEDY. On exam he has diminished lung sounds with expiratory wheeze. azithromycin started, he received 1 dose of Rocephin in the ER. Less suspicious of pneumonia more concern for COPD exacerbation. Hold off on adding Rocephin for now. Should he worsen clinically then I will resume. IV steroids with methylprednisone 60 mg q.6. Wheezing has resolved. Will transition to PO prednisone. Blood glucose has been elevated with addition of steroids. Will add 7 units TID with meals and SSI. Duo-Nebs q.6 Incentive spirometer Suspect his shortness of breath may have been related to his bradycardia (2) Afib: Qualifiers: Atrial fibrillation type: unspecified Qualified Code(s): I48.91 - Unspecified atrial fibrillation Code(s): I48.91 - Unspecified atrial fibrillation Status: Acute Assessment and Plan: Recently in a-fib RVR converted with IV diltiazem. He was started on diltiazem 240 mg ER PO daily and metoprolol succinate 50 mg PO daily at discharge. Here now with shortness of breath and bradycardia (heart rate in 30s) in the ED. Anticoagulation with Xarelto He was given glucagon for possible beta marianne toxicity On telemetry he is in a-fib with rates 80-90's Continue to hold metoprolol Start diltiazem 60 mg every 6 hours If he has no more recurrence of bradycardia, can transition back to ER diltiazem. (3) CHF (congestive heart failure): Code(s): I50.9 - Heart failure, unspecified Status: Acute Assessment and Plan: Diastolic HF with preserved EF per OSH records Continue home medications of Lasix 40 mg daily. He received 1 x dose of IV lasix 40 mg in the ED. Strict I&O, daily weights Heart Healthy, DM diet RAMILA wraps to BLE (4) HEDY (obstructive sleep apnea): Code(s): G47.33 - Obstructive sleep apnea (adult) (pediatric) Status: Acute Assessment and Plan: CPAP home settings. Will ask snf to bring his CPAP Plan DVT prophylaxis: Xarelto Glycemic control: Sliding scale insulin high dose with addition of 7 units TID with meals, a.c. HS Accu-Cheks, hypoglycemia protocol, Lantus 42 units Code Status: Full code Disposition: 83-year-old male who presents from local snf as a swing bed patient complains of shortness of breath. Undo have a COPD exacerbation and bradycardia. Rate control medications were held, patient is placed on telemetry, and received IM glucagon possible beta-marianne toxicity. PT/OT are consulted. Medication reconciliation obtained via the following: Nurse completed on admission The file time of this note does not necessarily represent the time the patient was seen. DS: Summary Hospital Course Reason for hospitalization: bradycardia, COPD exacerbation Hospital Course: This is an 83-year-old male with a past medical history significant for COPD, AFib, CAD s/p stents and CABG x 2, heart failure with preserved EF, DJD, diabetes, GERD, BPH, HEDY on CPAP, and dementia baseline orientation A&O x1 who presented from a snf with complaints of shortness of breath. The patient had a recent admission on 06/02/24 at [facility] for new atrial fibrillation with RVR, acute on chronic diastolic heart failure, and bilat
[2024-06-24 15:00] VITALS: O2SAT 93
--- NOTE | 2024-06-24 15:00 | PC.NURSE ---
Pt refused discharge wound photos.
--- NOTE | 2024-06-24 15:10 | PC.NURSE ---
Report called to Bess at [facility],.
== END 2024-06-24 15:30 | DRG 190 ==
LOC: CHSED 19:23 → CHS2ND 19:44
PROVIDERS: Nurse Practitioner Acute Care; Admitting Provider Internal Medicine; Emergency Provider Emergency Medicine; PCP Family Medicine; Visit Provider Internal Medicine
DX: J44.1 Chronic obstructive pulmonary disease with (acute) exacerbation (principal); J18.9 Pneumonia, unspecified organism; I50.32 Chronic diastolic (congestive) heart failure; I48.20 Chronic atrial fibrillation, unspecified; I25.10 Atherosclerotic heart disease of native coronary artery without angina pectoris; J44.0 Chronic obstructive pulmonary disease with (acute) lower respiratory infection; E11.9 Type 2 diabetes mellitus without complications; G47.33 Obstructive sleep apnea (adult) (pediatric); N40.0 Benign prostatic hyperplasia without lower urinary tract symptoms; M19.90 Unspecified osteoarthritis, unspecified site; F03.90 Unspecified dementia, unspecified severity, without behavioral disturbance, psychotic disturbance, mood disturbance, and anxiety; Z79.01 Long term (current) use of anticoagulants; Z79.82 Long term (current) use of aspirin; Z79.4 Long term (current) use of insulin; Z99.81 Dependence on supplemental oxygen; R00.1 Bradycardia, unspecified
CPT/HCPCS: 36415; 71045; 80053; 82948; 83605; 83735; 83880; 84484; 85025; 85055; 85380; 85610; 85730; 87040; 87637; 93005; 94640; 96365; 96367; 96375; 97161; 97166; 97530; 99285; A9270; G0378; J0456; J0696; J1610; J1815; J1940; J2919; J3475; J7030; J7050; J7512

== ENCOUNTER 2024-07-18 19:07 | Observation (INO) | payer MEDICARE, SELFPAY ==
[2024-07-18] VITALS (27 sets, daily range): BP systolic 95–126; BP diastolic 55–89; PULSE 47–94; RESP 17–26; TEMP 36.4–36.5; O2SAT 88–100; BMI 43.9
--- NOTE | ~2024-07-18 | XR_ITS ---
XR chest 1V portable Ordering provider: Bunny Alicea MD History: 83 years Male with . UNRESPONSIVE . Comparison: 06/22/2024 FINDINGS: MEDIASTINUM: The cardiac silhouette is slightly enlarged. Postoperative changes. Congestive aman. LUNGS: No infiltrates, effusions or pneumothorax. Granuloma in the left lower lobe. Prominent markings bilaterally. OTHER: No free air under the diaphragm. IMPRESSION: No acute cardiopulmonary pathology. Cardiomegaly with congestive aman. Reviewed, dictated and finalized at location A.
--- NOTE | ~2024-07-18 | CT_ITS ---
CT brain wo con Ordering provider: Bunny Alicea MD History: 83 years Male with . UNRESPONSIVE . Comparison: None. Technique: CT of the head without contrast. Radiation reduction technique utilized.The dose-length product was 681 mGy-cm to FINDINGS: BRAIN PARENCHYMA AND CSF SPACES: Mild leukoaraiosis and diffuse cortical atrophy. Mild atheromatous d isease. No midline shift, mass effect or hemorrhage. The brain parenchyma and CSF spaces are otherwi se normal. VISUALIZED PARANASAL SINUSES: Well aerated. MASTOIDS: Well aerated. BONES: The bones appear intact. SOFT TISSUES: Visualized nasopharynx is normal. Superficial soft tissues are normal. IMPRESSION: No acute intracranial findings. Reviewed, dictated and finalized at location A.
--- NOTE | 2024-07-18 19:10 | ED.AMS ---
HPI - Altered Mental Status General Chief Complaint: Altered Mental Status Stated Complaint: altered mental status Time Seen by Provider: 07/18/24 19:10 Source: patient, EMS and other ( alf) Mode of arrival: EMS Limitations: altered mental status History of Present Illness HPI narrative: 83-year-old male with history of dementia, diabetes mellitus, dyslipidemia COPD, HEDY on CPAP, CAD status post stents, status post CABG, AFib on Xarelto, HFpEF, was brought in from the long term via EMS for -- low blood sugar. The patient received D50 [id number] which his blood sugar came up to more than 200. EMS noted his blood sugar to be low and given 250 mL of D 10 W. on arrival to the ED his blood sugar was noted to be 133. -- He is noted to have altered mental status with drowsiness. after receiving the D50 and the dextrose the patient's mental status improved. He does not have any focal deficits. No fever or chills. No chest pain or shortness of breath. the patient takes 50 units of Lantus along with 22 units of lispro t.i.d.. complaint: altered mental status and decreased responsiveness Onset (ago): unknown Timing confirmed by: caregiver and other ( alf staff) Context: other ( Diabetic on Lantus and lispro) Associated symptoms: denies other symptoms Treatments prior to arrival: IV fluid Related Data Home Medications Medication Instructions Recorded Confirmed aspirin 81 mg tablet,delayed 81 mg PO DAILY 06/07/24 07/18/24 release (Adult Aspirin Regimen) atorvastatin 10 mg tablet 10 mg PO QHS 06/07/24 07/18/24 cetirizine 10 mg tablet 10 mg PO DAILY PRN ALLERGIES 06/07/24 07/18/24 diltiazem HCl 240 mg capsule,24 240 mg PO DAILY 06/07/24 07/18/24 hr,extended release doxazosin 2 mg tablet 2 mg PO DAILY 06/07/24 07/18/24 furosemide 40 mg tablet 40 mg PO QAM 06/07/24 07/18/24 magnesium oxide 240 mg PO DAILY 06/07/24 07/18/24 omeprazole 20 mg tablet,delayed 20 mg PO DAILY 06/07/24 07/18/24 release potassium chloride 20 mEq 20 meq PO DAILY 06/07/24 07/18/24 tablet,extended release rivaroxaban 15 mg tablet 15 mg PO QPM 06/07/24 07/18/24 insulin lispro 100 unit/mL 22 unit subcut .tidac 06/27/24 07/18/24 subcutaneous pen Allergies Allergy/AdvReac Type Severity Reaction Status Date / Time No Known Allergies Allergy Verified 07/18/24 19:41 Review of Systems Review of Systems: All systems reviewed & are unremarkable except as noted in HPI and below Constitutional: Constitutional: Reports as per HPI and Reports no additional constitutional complaints Eyes: Eyes: Reports as per HPI and Reports no additional eye complaints ENT: Reports system reviewed and no additional complaints, except as documented and Reports as per HPI Cardiovascular: Cardiovascular: Reports as per HPI and Reports no additional cardiovascular complaints Respiratory: Respiratory: Reports as per HPI and Reports no additional respiratory complaints Genitourinary: Genitourinary: Reports no additional male genitourinary complaints and Reports as per HPI Musculoskeletal: Musculoskeletal: Reports no additional musculoskeletal complaints and Reports as per HPI Integumentary/Breasts: Skin/Breast: Reports system reviewed and no additional complaints, except as docu and Reports as per HPI Comments: bilateral leg lymphedema. Abrasions bilateral lateral legs with yellow discharge Neurologic: Reports system reviewed and no additional complaints, except as documented and Reports as per HPI Psychiatric: Psychiatric: Reports no additional psychiatric complaints and Reports as per HPI Endocrine: Endocrine: Reports no additional endocrine complaints and Reports as per HPI Hematologic/Lymphatic: Hematologic/Lymphatic: Reports no additional hematologic/lymphatic complaints and Reports as per HPI Allergic/Immunologic: Allergic/Immunologic: Reports no additional allergic/immunologic complaints and Reports as per HPI PMFSH Past Medi
[2024-07-18 19:15] LABS: Glucose Point of Care 133 mg/dl (65-105)
[2024-07-18] MEDS: GLUCAGON FOR INJ 1 MG VIAL SUB-Q (19:20)
--- NOTE | 2024-07-18 19:27 | ECG_ITS ---
Test Date: 2024-07-18 19:36:52 Measurements Intervals Haigler Rate: 55 P: 0 ME: 0 QRS: 15 QRSD: 117 T: 31 QT: 444 QTc: 428 Interpretive Statements ATRIAL FIBRILLATION WITH SLOW VENTRICULAR RESPONSE INCOMPLETE RIGHT BUNDLE BRANCH BLOCK NONSPECIFIC T-WAVE ABNORMALITY- ANTEROLAT/HIGH LAT LEADS ABNORMAL ECG Compared to ECG 06/21/2024 17:57:11 HEART RATE HAS DECREASED Intraventricular conduction delay now present Electronically Signed On 07-19-2024 05:41:19 CDT by Cyril Cotter D.O.
[2024-07-18 19:49] LABS: Base Excess ABG 7.8 mmol/L (0-2); HCO3 ABG 36.5 mmol/L (23-29); Oxygen Content ABG 17.4 %vol (16.0-22.0); Oxygen Saturation ABG 96.2 % (95-97); Oxyhemoglobin 95.5 % (94-100); PO2 ABG 95.8 mmHg (75-85); pH ABG 7.32 (7.35-7.45)
[2024-07-18 19:51] LABS: PCO2 ABG 73.4 mmHg (35-45)
[2024-07-18 19:52] LABS: Device NASAL CANNULA; Modified Allen's Test Pass; Site Drawn RIGHT RADIAL
[2024-07-18 19:54] LABS: Hematocrit 38.3 % (37.0-46.0); Hemoglobin 12.1 g/dL (12.4-15.3); Immature Platelet Fraction Pct 16.7 % (1.0-7.0); Mean Corpuscular HGB Conc 31.6 g/dL (32-36); Mean Corpuscular Hemoglobin 29.6 pg (27.0-31.0); Mean Corpuscular Volume 93.6 fL (78.0-102.0); Mean Platelet Volume 13.2 fl (8.7-11.0); Platelet Count Result 171 K/mm3 (150-420); Red Blood Count 4.09 M/mm3 (4.70-6.10); Red Cell Distribution Width 14.4 % (11.6-14.4)
[2024-07-18 20:12] LABS: Lactic Acid Reflex 1.2 mmol/L (0.4-2.0)
[2024-07-18 20:13] LABS: Alanine Aminotransferase 20 U/L (16-63); Alkaline Phosphatase 300 U/L (46-116); Anion Gap 0 mmol/L (4-12); Aspartate Amino Transferase 17 U/L (15-37); Bilirubin,Total 0.6 mg/dL (0.00-1.00); Blood Urea Nitrogen 19 mg/dL (7-18); Calcium 8.9 mg/dL (8.5-10.1); Carbon Dioxide 40 mmol/L (21-32); Chloride 98 mmol/L (98-108); Estimated Glomerular Filt Rate > 60; Glucose 146 mg/dL (70-99); NT Pro B Type Natriuretic Pept 475 pg/mL (0-450); Osmolality Calculated 291 mOsm/kg (285-295); Potassium 3.5 mmol/L (3.5-5.1); Sodium 138 mmol/L (136-145); Total Protein 6.2 g/dL (6.4-8.2)
[2024-07-18 20:28] LABS: Band Neutrophils Percent 1 % (0-6); Neutrophils Absolute Manual 5.53 K/mm3 (1.3-6.7); Neutrophils Percent Manual 78 % (46-73); Total Cells Counted 100
[2024-07-18 20:29] LABS: Basophils Percent Manual 0 % (0-1); Eosinophils Absolute Manual 0.07 K/mm3 (0.02-0.50); Eosinophils Percent Manual 1 % (1-6); Lymphocytes Absolute Manual 0.84 K/mm3 (1.1-4.5); Lymphocytes Percent Manual 12 % (18-44); Metamyelocytes Percent 2 %; Monocytes Absolute Manual 0.42 K/mm3 (0.1-0.90); Monocytes Percent Manual 6 % (3-9); Platelet Estimate Adequate (Adequate)
[2024-07-18 20:34] LABS: Glucose Point of Care 185 mg/dl (65-105)
[2024-07-18 21:22] LABS: Glucose Point of Care 184 mg/dl (65-105)
[2024-07-18] MEDS: CALCIUM GLUC 1,000 MG/NS 50 ML 1,000 MG/50 ML BAG 100 MG IVPB (21:25)
--- NOTE | 2024-07-18 22:20 | PC.NURSE ---
PATIENT WAS GIVEN FOOD. ATE HALF OF TURKEY SANDWICH, DRANK 1 CARTON (240ML) MILK AND ATE 2 UNSWEETENED APPLESAUCE.
[2024-07-18] MEDS: INSULIN HUMAN REGULAR (*BKC) 1,000 UNITS/10 ML VIAL 10 UNITS SUB-Q (22:21)
[2024-07-18 22:26] LABS: Glucose Point of Care 207 mg/dl (65-105)
[2024-07-18] MEDS: ATORVASTATIN 10 MG TABLET PO (22:47)
[2024-07-18] MEDS: METOPROLOL TARTRATE 25 MG TABLET PO (22:47)
--- NOTE | 2024-07-18 22:49 | PC.NURSE ---
LEFT MESSAGE FOR GRANDDAUGHTER (POA) TO CALL BACK FOR AN UPDATE.
--- NOTE | 2024-07-18 22:50 | PCRCNOTE ---
RT was called to ED, patient wears 3L home O2, pt's home unit was brought in but had no power source with unit. Pt's PCO2 was in the 70's. Pt placed on hospital unit with settings per ED doctor of 10/05, R 20, 32% FiO2. Patient's vitals are stable with SpO2 level of 96% and HR of 52. RN notified of bipap settings.
--- NOTE | 2024-07-18 23:04 | ADMGEN ---
This patient, KATHY ROJAS Sr., was admitted to 2nd Floor Room 207-1. Patient/family oriented to hospital policies and general routines including ID bracelet, bed and alarms, visiting hours, pain management, procedures, bathroom and other care routines, personal items, smoking policy, room service/diet, and visiting hours. Information on how to activate the Rapid Response Team has been discussed. Patient/Family are encouraged to report perceived risks to care and to ask questions if they do not understand what they are told or what they should do.
[2024-07-19] VITALS (8 sets, daily range): BP systolic 113–145; BP diastolic 50–68; PULSE 60–84; RESP 16–24; TEMP 36–36.6; O2SAT 94–96
[2024-07-19 00:06] LABS: Glucose Point of Care 175 mg/dl (65-105)
[2024-07-19 04:21] LABS: Glucose Point of Care 142 mg/dl (65-105)
[2024-07-19 05:15] LABS: Basophils Absolute Auto 0.03 K/mm3 (0.00-0.10); Basophils Percent Auto 0.5 % (0.0-1.0); Eosinophils Absolute Auto 0.16 K/mm3 (0.02-0.50); Eosinophils Percent Auto 2.6 % (1.0-6.0); Hematocrit 37.8 % (37.0-46.0); Hemoglobin 12.1 g/dL (12.4-15.3); Immature Granulocyte Absolute 0.03 K/mm3 (0.00-0.00); Immature Granulocyte Percent A 0.5 % (0.0-0.0); Immature Platelet Fraction Pct 17.3 % (1.0-7.0); Lymphocytes Absolute Auto 1.63 K/mm3 (1.10-4.50); Lymphocytes Percent Auto 26.5 % (18.0-42.0); Mean Corpuscular Hemoglobin 30.1 pg (27.0-31.0); Mean Platelet Volume 12.9 fl (8.7-11.0); Monocytes Absolute Auto 0.64 K/mm3 (0.10-0.90); Monocytes Percent Auto 10.4 % (2.0-11.0); Neutrophils Absolute Auto 3.67 K/mm3 (1.70-7.20); Neutrophils Percent Auto 59.5 % (50.0-70.0); Platelet Count Result 168 K/mm3 (150-420); Red Blood Count 4.02 M/mm3 (4.70-6.10); Red Cell Distribution Width 14.6 % (11.6-14.4); White Blood Count 6.2 K/mm3 (4.8-10.8)
[2024-07-19 05:23] LABS: Anion Gap 0 mmol/L (4-12); Blood Urea Nitrogen 22 mg/dL (7-18); Carbon Dioxide 40 mmol/L (21-32); Chloride 100 mmol/L (98-108); Estimated CRCL calculation 65 ml/min; Estimated Glomerular Filt Rate > 60; Glucose 65 mg/dL (70-99); Osmolality Calculated 291 mOsm/kg (285-295); Potassium 3.8 mmol/L (3.5-5.1); Sodium 140 mmol/L (136-145)
[2024-07-19] MEDS: DEXTROSE 50% 25 GM/50 ML SYRINGE IV PUSH (05:46)
[2024-07-19 06:20] LABS: Glucose Point of Care 97 mg/dl (65-105)
--- NOTE | 2024-07-19 06:24 | PC.NURSE ---
New orders received and noted for D10% at 30 ml/hr due to pt's low blood glucose.
[2024-07-19] MEDS: DEXTROSE 10% 250 ML 30 ML IV CONT (06:46)
[2024-07-19 07:26] LABS: Glucose Point of Care 81 mg/dl (65-105)
[2024-07-19] MEDS: POTASSIUM CHLORIDE 20 MEQ ER TABLET PO (09:14)
[2024-07-19] MEDS: METOPROLOL TARTRATE 25 MG TABLET PO (09:14)
[2024-07-19] MEDS: FUROSEMIDE 40 MG TABLET PO (09:15)
[2024-07-19] MEDS: dilTIAZem HCL CD 240 MG CAP.24HR PO (09:15)
[2024-07-19] MEDS: ASPIRIN 81 MG ENTERIC TABLET PO (09:15)
[2024-07-19] MEDS: MAGNESIUM OXIDE 400 MG TABLET PO (09:15)
[2024-07-19] MEDS: DOXAZOSIN MESYLATE 2 MG TABLET PO (09:15)
[2024-07-19] MEDS: PANTOPRAZOLE 40 MG TABLET PO (09:15)
--- NOTE | 2024-07-19 11:03 | PM.IMHP ---
H&P: HPI History of Present Illness Date/Time: 07/19/24 11:03 Chief Complaint: Low blood sugar Narrative: This is an 83-year-old male with a past medical history significant for COPD, AFib, CAD s/p stents and CABG x 2, heart failure with preserved EF, DJD, diabetes, GERD, BPH, HEDY on CPAP, and dementia baseline orientation A&O x1 who presented from a fdc after having low blood sugar. The patient has dementia and is oriented to self at baseline and is a poor historian so the history is obtained through chart review. According to the emergency room physician the patient received D50 by fdc staff after having a blood sugar in the 40s. His blood sugar initially improved but he was still altered and not very responsive so EMS was called. while awaiting for EMS they rechecked his blood sugar and it was again in the 40s. According to triage report the patient received a total of D50 x2 and 250 mL bag of D10. Upon arrival to the emergency room the blood sugar was 133. the patient appeared lethargic on arrival so a blood gas was performed and he was found to have hypercarbic respiratory failure and was placed on BiPAP inspiratory pressure 12, expiratory pressure 6 with a rate of 20. the patient is supposed to wear CPAP at the fdc but per staff he frequently removes the mask. The patient's lethargy improved and he was able to tolerate a diet. He was also found have some bradycardia with rates in the 40s for which she received glucagon 1 mg. On exam the patient is on his baseline oxygen settings and appears comfortable at rest. He denies headache, dizziness, fever, chills, nasal drainage, sore throat, chest pain, shortness a breath, abdominal pain, nausea, vomiting, diarrhea, or pain. He does have bilateral lower extremity erythema and warmth with chronic venous insufficiency and lymphedema. In the emergency room labs are significant for white count 7.0, hemoglobin 12.1, hematocrit 30.3, platelets 171, sodium 138, potassium 3.5, chloride 98, CO2 40, BUN 19, creatinine 1.06, glucose [address] of the head showed no acute intracranial finding. Chest x-ray showed no acute cardiopulmonary pathology other than cardiomegaly. EKG on arrival showed AFib with a rate of 55 with a right bundle branch block. In addition to glucagon 1 mg subcutaneous the patient also received calcium gluconate 1 g and 10 units of regular insulin. The patient was admitted in this setting for further monitoring of recurrent hypoglycemia. Review of Systems Review of Systems: All systems reviewed & are unremarkable except as noted in HPI and below PMFSH Past Medical History Medical History (Updated 07/19/24 @ 11:29 by Cata Vázquez APRN) Afib Asthma exacerbation in COPD BPH (benign prostatic hyperplasia) CAD (coronary artery disease) CHF (congestive heart failure) Dementia Diabetes mellitus GERD (gastroesophageal reflux disease) Hypertension Lymphedema OA (osteoarthritis) HEDY (obstructive sleep apnea) Surgical History Surgical History Coronary angioplasty status Family History Family History Other Unknown family medical history Social History Social History Social History: fdc resident Smoking status: Never smoker Second hand tobacco smoke exposure: No Alcohol intake: former Substance use: never Substance use type: does not use Do You Feel Safe in your Home?: Yes Lack of Transportation: No Lack of Food: Never True Current Housing: I Have Housing Concerned About Future Housing: No Difficulty Paying Gas/Electric Bills: No Difficulty Paying for Meds: No Currently Unemployed: No Education: High School Diploma/GED Difficulty w/ Childcare or Family Care: No Spiritual care concerns: No Meds Home Medic
[2024-07-19 12:13] LABS: Glucose Point of Care 195 mg/dl (65-105)
[2024-07-19 17:17] LABS: Glucose Point of Care 234 mg/dl (65-105)
[2024-07-19] MEDS: INSULIN HUMAN LISPRO (*BKC) 1,000 UNITS/10 ML VIAL SUB-Q (17:18)
[2024-07-19] MEDS: CEPHALEXIN 500 MG CAPSULE PO ×2 (17:18→23:45)
[2024-07-19] MEDS: RIVAROXABAN 15 MG TABLET PO (17:18)
[2024-07-19 19:14] LABS: Add Urine Microscopic? NO; Appearance Urine Clear (Clear); Bilirubin Urine Negative (Negative); Blood Urine Negative (Negative); Color Urine Light Yellow (Yellow); Glucose Urine UA 3+ (Negative); Ketones Urine Negative (Negative); Leukocyte Esterase Ur Negative LEU/UL (Negative); Nitrate Urine Negative (Negative); Protein Urine Negative (Negative); Urobilinogen Urine 0.2 mg/dL (0.2-1.0); pH Urine 5.5 (5.0-8.0)
[2024-07-19 19:45] LABS: Glucose Point of Care 261 mg/dl (65-105)
[2024-07-19] MEDS: DOXYCYCLINE HYCLATE 100 MG TABLET PO (20:43)
[2024-07-19] MEDS: ATORVASTATIN 10 MG TABLET PO (20:43)
--- NOTE | 2024-07-19 21:15 | PC.NURSE ---
Went into patients room to find him taking out his IV. Small amount of blood noted. Cleansed area and applied a dry clean dressing to site.
[2024-07-20] VITALS: BP 123/57; PULSE 71; PULSE 78; RESP 16; TEMP 36.7; O2SAT 96
[2024-07-20 04:00] VITALS: BP 140/77; PULSE 78; RESP 16; TEMP 36.7; O2SAT 95
[2024-07-20 05:37] LABS: Basophils Absolute Auto 0.04 K/mm3 (0.00-0.10); Basophils Percent Auto 0.8 % (0.0-1.0); Eosinophils Absolute Auto 0.25 K/mm3 (0.02-0.50); Eosinophils Percent Auto 4.8 % (1.0-6.0); Hematocrit 39.8 % (37.0-46.0); Hemoglobin 12.5 g/dL (12.4-15.3); Immature Granulocyte Absolute 0.07 K/mm3 (0.00-0.00); Immature Granulocyte Percent A 1.3 % (0.0-0.0); Immature Platelet Fraction Pct 14.8 % (1.0-7.0); Lymphocytes Absolute Auto 1.37 K/mm3 (1.10-4.50); Lymphocytes Percent Auto 26.2 % (18.0-42.0); Mean Corpuscular HGB Conc 31.4 g/dL (32-36); Mean Corpuscular Hemoglobin 29.8 pg (27.0-31.0); Mean Platelet Volume 13.3 fl (8.7-11.0); Monocytes Absolute Auto 0.64 K/mm3 (0.10-0.90); Monocytes Percent Auto 12.3 % (2.0-11.0); Neutrophils Absolute Auto 2.85 K/mm3 (1.70-7.20); Neutrophils Percent Auto 54.6 % (50.0-70.0); Platelet Count Result 183 K/mm3 (150-420); Red Blood Count 4.19 M/mm3 (4.70-6.10); White Blood Count 5.2 K/mm3 (4.8-10.8)
[2024-07-20] MEDS: CEPHALEXIN 500 MG CAPSULE PO (05:41)
[2024-07-20 05:55] LABS: Alanine Aminotransferase 16 U/L (16-63); Albumin Level 3.2 g/dL (3.4-5.0); Alkaline Phosphatase 327 U/L (46-116); Anion Gap -1 mmol/L (4-12); Aspartate Amino Transferase 15 U/L (15-37); Bilirubin,Total 0.6 mg/dL (0.00-1.00); Blood Urea Nitrogen 19 mg/dL (7-18); Calcium 9.3 mg/dL (8.5-10.1); Carbon Dioxide 41 mmol/L (21-32); Chloride 99 mmol/L (98-108); Estimated CRCL calculation 60 ml/min; Estimated Glomerular Filt Rate > 60; Glucose 146 mg/dL (70-99); Osmolality Calculated 293 mOsm/kg (285-295); Potassium 4.4 mmol/L (3.5-5.1); Sodium 139 mmol/L (136-145); Total Protein 6.4 g/dL (6.4-8.2)
[2024-07-20 07:46] LABS: Glucose Point of Care 159 mg/dl (65-105)
[2024-07-20 08:00] VITALS: BP 136/74; PULSE 80; RESP 16; TEMP 36.6; O2SAT 94
[2024-07-20 08:14] LABS: Hemoglobin A1C 7.5 % (<5.7)
[2024-07-20] MEDS: FUROSEMIDE 40 MG TABLET PO (08:35)
[2024-07-20] MEDS: DOXAZOSIN MESYLATE 2 MG TABLET PO (08:35)
[2024-07-20] MEDS: ASPIRIN 81 MG ENTERIC TABLET PO (08:35)
[2024-07-20] MEDS: POTASSIUM CHLORIDE 20 MEQ ER TABLET PO (08:35)
[2024-07-20] MEDS: dilTIAZem HCL CD 240 MG CAP.24HR PO (08:35)
[2024-07-20] MEDS: DOXYCYCLINE HYCLATE 100 MG TABLET PO (08:35)
[2024-07-20] MEDS: PANTOPRAZOLE 40 MG TABLET PO (08:36)
[2024-07-20] MEDS: MAGNESIUM OXIDE 400 MG TABLET PO (08:36)
--- NOTE | 2024-07-20 09:52 | P.DS_ITS ---
DS: Admitting Diagnosis Discharge Date 07-20 Admitting Diagnosis hypoglycemia DS: Discharge Diagnosis Discharge Diagnosis (1) Hypercapnic respiratory failure: Code(s): J96.92 - Respiratory failure, unspecified with hypercapnia Status: Acute Assessment and Plan: patient has a history of COPD and HEDY. He is supposed to wear CPAP at night but frequently removes mass per alf staff. Patient has severe dementia which contributes to his noncompliance. * ABG on arrival showed pH 7.32, pCO2 73.4, PO2 95.8, HC03 36.5 on 3 L nasal cannula * patient was placed on BiPAP inspiratory pressure 12 over expiratory pressure of 6 with a rate of 20. Patient lethargy resolved and he is back to his baseline orientation * Continue with chronic 3 L nasal cannula * home CPAP ordered and set up for naps and HS (2) Bradycardia: Code(s): R00.1 - Bradycardia, unspecified Status: Acute Assessment and Plan: patient is on diltiazem 240 mg daily and metoprolol tartrate 25 mg b.i.d.. This is the 2nd time he has presented to the hospital with bradycardia. * patient received glucagon in the emergency room * on telemetry * resume diltiazem, stop metoprolol (3) Hypoglycemia: Code(s): E16.2 - Hypoglycemia, unspecified Status: Acute Assessment and Plan: patient is on Lantus 50 units daily with lispro 22 units t.i.d. with meals * status post D50 and D10 bolus. Stop D10 * blood sugar on a.m. BNP was 65. point care 97. * Hold on lispro with meals, will order sliding scale high-dose * hold on Lantus * a.c. HS Accu-Cheks with hypoglycemia protocol (4) HEDY (obstructive sleep apnea): Code(s): G47.33 - Obstructive sleep apnea (adult) (pediatric) Status: Acute Assessment and Plan: CPAP auto titrate home settings (5) Afib: Qualifiers: Atrial fibrillation type: unspecified Qualified Code(s): I48.91 - Unspecified atrial fibrillation Code(s): I48.91 - Unspecified atrial fibrillation Status: Acute Assessment and Plan: history of atrial fibrillation for which he was started on diltiazem and metoprolol * no here with 2nd recurrence of bradycardia. * Will continue with diltiazem and hold metoprolol * continues Xarelto * telemetry ordered Plan DVT prophylaxis: Xarelto Glycemic control: high-dose SSI, holding Lantus Code Status: full code Disposition: 83-year-old male who presents with low blood sugar at a alf as well as lethargy. He was found have hypercapnic respiratory failure requiring BiPAP. He has also received D50 x2 and D10 bolus. Blood sugars continue to remain stable. Holding Lantus for now. Medication reconciliation obtained via the following: Nurse completed on a dmission The file time of this note does not necessarily represent the time the patient was seen. DS: Summary Hospital Course Reason for hospitalization: hypoglycemia, hypercarbic respiratory failure Hospital Course: This is an 83-year-old male who presented from his alf with complaints of low blood sugar. He was also lethargic and found to be hypercarbic on ABG. He was admitted for blood sugar stabilization and monitoring as well as BiPAP. Adjustments were made to his insulin regimen and his blood sugars have remained stable. His previous regimen was Lantus 50 units nightly with lispro 22 units t.i.d. with meals. His hemoglobin A1c is 7.5%.
--- NOTE | 2024-07-20 09:52 | PM.DS ---
DS: Admitting Diagnosis Discharge Date 07-20 Admitting Diagnosis hypoglycemia DS: Discharge Diagnosis Discharge Diagnosis (1) Hypercapnic respiratory failure: Code(s): J96.92 - Respiratory failure, unspecified with hypercapnia Status: Acute Assessment and Plan: patient has a history of COPD and HEDY. He is supposed to wear CPAP at night but frequently removes mass per group home staff. Patient has severe dementia which contributes to his noncompliance. ABG on arrival showed pH 7.32, pCO2 73.4, PO2 95.8, HC03 36.5 on 3 L nasal cannula patient was placed on BiPAP inspiratory pressure 12 over expiratory pressure of 6 with a rate of 20. Patient lethargy resolved and he is back to his baseline orientation Continue with chronic 3 L nasal cannula home CPAP ordered and set up for naps and HS (2) Bradycardia: Code(s): R00.1 - Bradycardia, unspecified Status: Acute Assessment and Plan: patient is on diltiazem 240 mg daily and metoprolol tartrate 25 mg b.i.d.. This is the 2nd time he has presented to the hospital with bradycardia. patient received glucagon in the emergency room on telemetry resume diltiazem, stop metoprolol (3) Hypoglycemia: Code(s): E16.2 - Hypoglycemia, unspecified Status: Acute Assessment and Plan: patient is on Lantus 50 units daily with lispro 22 units t.i.d. with meals status post D50 and D10 bolus. Stop D10 blood sugar on a.m. BNP was 65. point care 97. Hold on lispro with meals, will order sliding scale high-dose hold on Lantus a.c. HS Accu-Cheks with hypoglycemia protocol (4) HEDY (obstructive sleep apnea): Code(s): G47.33 - Obstructive sleep apnea (adult) (pediatric) Status: Acute Assessment and Plan: CPAP auto titrate home settings (5) Afib: Qualifiers: Atrial fibrillation type: unspecified Qualified Code(s): I48.91 - Unspecified atrial fibrillation Code(s): I48.91 - Unspecified atrial fibrillation Status: Acute Assessment and Plan: history of atrial fibrillation for which he was started on diltiazem and metoprolol no here with 2nd recurrence of bradycardia. Will continue with diltiazem and hold metoprolol continues Xarelto telemetry ordered Plan DVT prophylaxis: Xarelto Glycemic control: high-dose SSI, holding Lantus Code Status: full code Disposition: 83-year-old male who presents with low blood sugar at a group home as well as lethargy. He was found have hypercapnic respiratory failure requiring BiPAP. He has also received D50 x2 and D10 bolus. Blood sugars continue to remain stable. Holding Lantus for now. Medication reconciliation obtained via the following: Nurse completed on admission The file time of this note does not necessarily represent the time the patient was seen. DS: Summary Hospital Course Reason for hospitalization: hypoglycemia, hypercarbic respiratory failure Hospital Course: This is an 83-year-old male who presented from his group home with complaints of low blood sugar. He was also lethargic and found to be hypercarbic on ABG. He was admitted for blood sugar stabilization and monitoring as well as BiPAP. Adjustments were made to his insulin regimen and his blood sugars have remained stable. His previous regimen was Lantus 50 units nightly with lispro 22 units t.i.d. with meals. His hemoglobin A1c is 7.5%. I have decreased his Lantus to 30 units and will send him with sliding scale insulin for meals. He was transitioned to his home CPAP and his lethargy has resolved. He is on his baseline 2-3 L of nasal cannula. He was also found to have some concerns for developing cellulitis to his bilateral lower extremities as he had increased erythema, warmth, and tenderness. He was started on oral Augmentin and d
[2024-07-20 12:08] VITALS: O2SAT 96
--- NOTE | 2024-07-20 14:28 | PC.NURSE ---
1145 dc to area [facility] per . report called to [facility]
--- NOTE | 2024-07-24 09:00 | PC.NURSE ---
Discharge call back, returned to half-way, no questions regarding dc instructions
== END 2024-07-20 11:45 ==
LOC: CHSED 21:43 → CHS2ND 07-19 06:56
PROVIDERS: Nurse Practitioner Acute Care; Admitting Provider Internal Medicine; Emergency Provider Internal Medicine Critical Care Medicine; PCP Family Medicine; Visit Provider Internal Medicine
DX: E11.649 Type 2 diabetes mellitus with hypoglycemia without coma (principal); J96.92 Respiratory failure, unspecified with hypercapnia; R00.1 Bradycardia, unspecified; R41.0 Disorientation, unspecified; I48.91 Unspecified atrial fibrillation; I11.0 Hypertensive heart disease with heart failure; I50.9 Heart failure, unspecified; I25.10 Atherosclerotic heart disease of native coronary artery without angina pectoris; J44.9 Chronic obstructive pulmonary disease, unspecified; F03.90 Unspecified dementia, unspecified severity, without behavioral disturbance, psychotic disturbance, mood disturbance, and anxiety; K21.9 Gastro-esophageal reflux disease without esophagitis; G47.33 Obstructive sleep apnea (adult) (pediatric); N40.0 Benign prostatic hyperplasia without lower urinary tract symptoms; Z79.82 Long term (current) use of aspirin; Z79.01 Long term (current) use of anticoagulants; Z79.4 Long term (current) use of insulin; Z79.51 Long term (current) use of inhaled steroids; Z91.198 Patient's noncompliance with other medical treatment and regimen for other reason
CPT/HCPCS: 36415; 36600; 70450; 71045; 80048; 80053; 81003; 82805; 82810; 82948; 83036; 83605; 83880; 84484; 85025; 85055; 87070; 87147; 87181; 87205; 93005; 96365; 96366; 96367; 96375; 96376; 99285; A9270; G0378; J0612; J1610; J1815

== ENCOUNTER 2024-08-14 16:39 | Emergency (ER) | payer MEDICARE, SELFPAY ==
[2024-08-14 16:47] VITALS: BP 127/76; PULSE 84; RESP 22; TEMP 36.6; O2SAT 95
--- NOTE | 2024-08-14 16:49 | ED.GENADULT ---
HPI - General Adult General Chief complaint: Urogenital-Male Stated complaint: SWOLLEN TESTICLES Time Seen by Provider: 08/14/24 16:49 Source: patient Limitations: no limitations History of Present Illness HPI narrative: 83-year-old white male comes from the shelter complains of painful testicles this started 3 days ago it has gotten worse. He has been treated for cellulitis of his lower extremities and has swelling of his lower extremities as well. He has been in the shelter for a month. Related Data Home Medications Medication Instructions Recorded Confirmed aspirin 81 mg tablet,delayed 81 mg PO DAILY 06/07/24 08/14/24 release (Adult Aspirin Regimen) atorvastatin 10 mg tablet 10 mg PO QHS 06/07/24 08/14/24 cetirizine 10 mg tablet 10 mg PO DAILY PRN ALLERGIES 06/07/24 08/14/24 diltiazem HCl 240 mg capsule,24 240 mg PO DAILY 06/07/24 08/14/24 hr,extended release doxazosin 2 mg tablet 2 mg PO DAILY 06/07/24 08/14/24 furosemide 40 mg tablet 40 mg PO QAM 06/07/24 08/14/24 magnesium oxide 240 mg PO DAILY 06/07/24 08/14/24 omeprazole 20 mg tablet,delayed 20 mg PO DAILY 06/07/24 08/14/24 release potassium chloride 20 mEq 20 meq PO DAILY 06/07/24 08/14/24 tablet,extended release rivaroxaban 15 mg tablet 15 mg PO QPM 06/07/24 08/14/24 insulin aspart U-100 100 unit/mL See Rx Instructions .Route .COMPLEX 08/14/24 08/14/24 (3 mL) subcutaneous pen Allergies Allergy/AdvReac Type Severity Reaction Status Date / Time No Known Allergies Allergy Verified 08/14/24 16:47 [facility] Past Medical History Medical History Afib Asthma exacerbation in COPD BPH (benign prostatic hyperplasia) CAD (coronary artery disease) CHF (congestive heart failure) Dementia Diabetes mellitus GERD (gastroesophageal reflux disease) Hypertension Lymphedema OA (osteoarthritis) HEDY (obstructive sleep apnea) Surgical History Surgical History Coronary angioplasty status Family History Family History Other Unknown family medical history Social History Social History Social History: shelter resident Smoking status: Never smoker Second hand tobacco smoke exposure: No Alcohol intake: former Substance use: never Substance use type: does not use Do You Feel Safe in your Home?: Yes Lack of Transportation: No Lack of Food: Never True Current Housing: I Have Housing Concerned About Future Housing: No Difficulty Paying Gas/Electric Bills: No Difficulty Paying for Meds: No Currently Unemployed: No Education: High School Diploma/GED Difficulty w/ Childcare or Family Care: No Spiritual care concerns: No Comments past medical history: Pneumonia diabetes type 2, unspecified dementia, cellulitis of lower extremities acute on chronic diastolic congestive heart failure, GERD BPH 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 Head normocephalic, atraumatic.? Eyes conjunctiva pink sclera nonicteric.? Extraocular movements are intact.? Ears externally normal. ? Lungs are clear.? Heart is regular rate and rhythm without murmurs gallops or rubs.? Chest wall nontender. Abdomen is soft and nontender no hepatosplenomegaly or masses no CVA tenderness no abdominal bruits.? scrotum markedly enlarged mild tenderness diffusely, testes difficult to palpate. Foreskin is also swollen. Extremities: + 3 tense edema of his lower extremities with mild erythema and nontender and without increased warmth. No cyanosis or clubbing.? Skin is warm and dry without rashes or lesions.? Neurological patient is alert and oriented x4.? Motor and sensory grossly intact.? Gait is normal. Cour
--- NOTE | 2024-08-14 19:11 | PC.NURSE ---
Report received, awaiting pt return from [facility].
--- NOTE | 2024-08-14 20:10 | PC.NURSE ---
Pt returned to ER Rm1 from [place] w/ EMS. CT report received and reviewed by ERP Dr. Curiel. Pt stable and alert on arrival. VSS. Labs ordered per ERP.
[2024-08-14 20:21] VITALS: BP 129/81; PULSE 92; RESP 18; TEMP 36.4; O2SAT 99
--- NOTE | 2024-08-14 20:25 | PC.NURSE ---
Pt given dinner tray.
[2024-08-14 20:26] LABS: Hematocrit 39.7 % (37.0-46.0); Hemoglobin 12.5 g/dL (12.4-15.3); Mean Corpuscular HGB Conc 31.5 g/dL (32-36); Mean Corpuscular Hemoglobin 29.8 pg (27.0-31.0); Mean Corpuscular Volume 94.5 fL (78.0-102.0); Mean Platelet Volume 12.8 fl (8.7-11.0); Platelet Count Result 215 K/mm3 (150-420); Red Cell Distribution Width 13.7 % (11.6-14.4); White Blood Count 6.8 K/mm3 (4.8-10.8)
[2024-08-14 20:47] LABS: Alanine Aminotransferase 13 U/L (16-63); Albumin Level 3.1 g/dL (3.4-5.0); Alkaline Phosphatase 379 U/L (46-116); Anion Gap -3 mmol/L (4-12); Aspartate Amino Transferase 13 U/L (15-37); Bilirubin,Total 0.5 mg/dL (0.00-1.00); Blood Urea Nitrogen 13 mg/dL (7-18); Calcium 9.1 mg/dL (8.5-10.1); Carbon Dioxide 42 mmol/L (21-32); Chloride 101 mmol/L (98-108); Estimated CRCL calculation 61 ml/min; Estimated Glomerular Filt Rate > 60; Glucose 255 mg/dL (70-99); Osmolality Calculated 299 mOsm/kg (285-295); Sodium 140 mmol/L (136-145); Total Protein 6.5 g/dL (6.4-8.2)
[2024-08-14 20:49] LABS: NT Pro B Type Natriuretic Pept 141 pg/mL (0-450)
[2024-08-14] MEDS: FUROSEMIDE 40 MG TABLET 80 MG PO (20:59)
--- NOTE | 2024-08-14 20:59 | PC.NURSE ---
[facility] called to check pt's status. Told them that pt would be returning to them and that we would call them back when he was ready for pickup.
--- NOTE | 2024-08-14 21:10 | PC.NURSE ---
Call placed back to [facility] and report given to Nesha on pt return. Orders verified and instructed on f/u care w/ Dr Don. Pt dressed and placed in w/c for return to [place].
[2024-08-14 21:29] VITALS: BP 140/84; PULSE 89; RESP 18; TEMP 36.4; O2SAT 96
== END 2024-08-14 21:29 | disposition home or self-care (01) ==
PROVIDERS: Emergency Provider Emergency Medicine; PCP Nurse Practitioner Family
DX: N43.3 Hydrocele, unspecified (principal); I25.10 Atherosclerotic heart disease of native coronary artery without angina pectoris; E11.9 Type 2 diabetes mellitus without complications; I11.0 Hypertensive heart disease with heart failure; I50.9 Heart failure, unspecified; Z79.82 Long term (current) use of aspirin; Z79.899 Other long term (current) drug therapy; Z79.4 Long term (current) use of insulin
CPT/HCPCS: 36415; 76870; 80053; 83880; 85027; 93976; 99283; A9270

== ENCOUNTER 2024-08-14 18:25 | Outpatient (CLI) | payer OTHER, SELFPAY ==
--- NOTE | ~2024-08-14 | US_ITS ---
EXAMINATION: US scrotum doppler DATE: 08/14/2024 19:46 INDICATION: Scrotal pain and swelling. TECHNIQUE: Grayscale and Doppler ultrasound images of the testes were obtained. COMPARISON: None. FINDINGS: The right testis measures 3.9 x 2.6 x 2.4 cm. The left testis measures 3.4 x 2.9 x 2.5 cm. There is normal vascular flow to both testes. The right epididymis is normal with normal vascular blossom w. The left epididymis is normal with normal vascular flow. There are moderate-sized bilateral hydroc eles. Scrotal skin thickening is noted. IMPRESSION: 1. Moderate-sized bilateral hydroceles. Reviewed, dictated and finalized at location A.
== END 2024-08-14 18:26 | disposition home or self-care (01) ==
LOC: ANHOUTPT 18:34
PROVIDERS: PCP Nurse Practitioner Family; Visit Provider Nurse Practitioner Family
DX: N43.3 Hydrocele, unspecified (principal); N50.89 Other specified disorders of the male genital organs
CPT/HCPCS: 76870; 93976

== ENCOUNTER 2024-08-24 12:47 | Outpatient (CLI) | payer MEDICARE, MEDICAID, SELFPAY ==
--- NOTE | ~2024-08-24 | CT_ITS ---
EXAMINATION: CT brain wo con DATE: 08/24/2024 13:34 INDICATION: Altered mental status. Dizziness. TECHNIQUE: Computed tomography (CT) of the head was performed without intravenous contrast. The mA wa s adjusted according to patient size. Iterative reconstruction technique was employed. The dose-lengt h product was 605.33 mGy-cm. COMPARISON: Head CT 07/18/2024 FINDINGS: There is no intracranial hemorrhage, acute infarction, or abnormal intracranial mass lesion . There is a small old infarct in right frontoparietal region. There are scattered areas of low atten uation in the cerebral white matter, which is within normal limits for the patient's age. The ventri cles are normal in size. There are likely changes of left ocular lens replacement surgery. There is m ild mucosal thickening in the paranasal sinuses. There is a small right mastoid effusion. IMPRESSION: 1. Small old infarct in right frontoparietal region. Reviewed, dictated and finalized at location A.
--- NOTE | ~2024-08-24 | XR_ITS ---
EXAMINATION: XR chest 2V DATE: 08/24/2024 13:34 INDICATION: Wheezing. TECHNIQUE: Frontal and lateral views of the chest were obtained on 3 radiographs. COMPARISON: Chest single view 07/18/2024 FINDINGS: A calcified left lung nodule is consistent with old granulomatous disease. There is bluntin g of left posterior costophrenic angle. No pneumothorax. The heart size is normal. Median sternotomy wires and mediastinal surgical clips are seen, likely from prior coronary artery bypass grafting. IMPRESSION: 1. Blunting of left posterior costophrenic angle, consistent with scarring versus tiny pleural effusi on. Reviewed, dictated and finalized at location A. IMPRESSION: 1. Blunting of left posterior costophrenic angle, consistent with scarring vers us tiny pleural effusion.
[2024-08-24 13:14] LABS: Hematocrit 41.9 % (37.0-46.0); Hemoglobin 13.6 g/dL (12.4-15.3); Immature Platelet Fraction Pct 16.2 % (1.0-7.0); Mean Corpuscular HGB Conc 32.5 g/dL (32-36); Mean Corpuscular Hemoglobin 30.3 pg (27.0-31.0); Mean Corpuscular Volume 93.3 fL (78.0-102.0); Mean Platelet Volume 12.9 fl (8.7-11.0); Platelet Count Result 204 K/mm3 (150-420); Red Blood Count 4.49 M/mm3 (4.70-6.10); Red Cell Distribution Width 13.2 % (11.6-14.4); White Blood Count 7.3 K/mm3 (4.8-10.8)
[2024-08-24 13:55] LABS: Alanine Aminotransferase 15 U/L (16-63); Albumin Level 3.5 g/dL (3.4-5.0); Alkaline Phosphatase 379 U/L (46-116); Anion Gap 4 mmol/L (4-12); Aspartate Amino Transferase 14 U/L (15-37); Bilirubin,Total 0.7 mg/dL (0.00-1.00); Blood Urea Nitrogen 18 mg/dL (7-18); Calcium 9.6 mg/dL (8.5-10.1); Carbon Dioxide 39 mmol/L (21-32); Chloride 99 mmol/L (98-108); Estimated Glomerular Filt Rate > 60; Glucose 234 mg/dL (70-99); NT Pro B Type Natriuretic Pept 229 pg/mL (0-450); Osmolality Calculated 303 mOsm/kg (285-295); Potassium 3.5 mmol/L (3.5-5.1); Sodium 142 mmol/L (136-145); Total Protein 7.1 g/dL (6.4-8.2); Troponin I 11.9 ng/L (0.00-60.4)
[2024-08-24 14:02] LABS: Add Urine Microscopic? NO; Appearance Urine Clear (Clear); Bilirubin Urine Negative (Negative); Blood Urine Negative (Negative); Color Urine Light Yellow (Yellow); Glucose Urine UA Trace (Negative); Ketones Urine Negative (Negative); Leukocyte Esterase Ur Negative (Negative); Nitrate Urine Negative (Negative); Protein Urine Negative (Negative); pH Urine 5.5 (5.0-8.0)
== END 2024-08-24 12:48 | disposition home or self-care (01) ==
PROVIDERS: PCP Family Medicine; Visit Provider Nurse Practitioner Family
DX: R41.82 Altered mental status, unspecified (principal); I50.9 Heart failure, unspecified; M79.89 Other specified soft tissue disorders; Z86.73 Personal history of transient ischemic attack (TIA), and cerebral infarction without residual deficits
CPT/HCPCS: 36415; 70450; 71046; 80053; 81003; 83880; 84484; 85027; 85055

== ENCOUNTER 2024-10-26 16:14 | Emergency (ER) | payer MEDICARE, MEDICAID, SELFPAY ==
[2024-10-26] VITALS (21 sets, daily range): BP systolic 117–156; BP diastolic 58–109; PULSE 68–89; RESP 16–18; TEMP 36.1–36.6; O2SAT 90–97
[2024-10-26 16:26] LABS: Glucose Point of Care 433 mg/dl (65-105)
--- NOTE | 2024-10-26 16:30 | PC.NURSE ---
Per staff at [facility]. patient had mild confusion with change of scenery, Patient is baseline mental status.
--- NOTE | 2024-10-26 16:51 | ED.GENADULT ---
HPI - General Adult General Chief complaint: Recheck/Abnormal Lab/Rx Stated complaint: ELEVATED BLOOD SUGAR Time Seen by Provider: 10/26/24 16:51 Source: patient Mode of arrival: other Limitations: other History of Present Illness HPI narrative: 83-year-old white male diabetic set over from [facility] with elevated sugar of 500 took his 5 units this morning and 7 units at lunch. Patient said he ate a bunch of candy today. Denies any pain difficulty breathing shortness of breath bleeding or bruising her he has got chronic swelling in his extremities denies any dizziness or lightheadedness or changes in his ability to walk talk see or hear. Denies any other Complaints. Related Data Home Medications ?Medication ?Instructions ?Recorded ?Confirmed ?Last Taken ?Type aspirin 81 mg tablet,delayed 81 mg PO DAILY 06/07/24 10/26/24 07/18/24 History release (Adult Aspirin Regimen) atorvastatin 10 mg tablet 10 mg PO QHS 06/07/24 10/26/24 07/18/24 History cetirizine 10 mg tablet 10 mg PO DAILY PRN ALLERGIES 06/07/24 10/26/24 07/18/24 History diltiazem HCl 240 mg capsule,24 240 mg PO DAILY 06/07/24 10/26/24 07/18/24 History hr,extended release doxazosin 2 mg tablet 2 mg PO DAILY 06/07/24 10/26/24 07/18/24 History magnesium oxide 240 mg PO DAILY 06/07/24 10/26/24 07/18/24 History omeprazole 20 mg tablet,delayed 20 mg PO DAILY 06/07/24 10/26/24 07/18/24 History release potassium chloride 20 mEq 20 meq PO DAILY 06/07/24 10/26/24 07/18/24 History tablet,extended release rivaroxaban 15 mg tablet 15 mg PO QPM 06/07/24 10/26/24 07/18/24 History insulin aspart U-100 100 unit/mL See Rx Instructions .Route .COMPLEX 08/14/24 10/26/24 Unknown History (3 mL) subcutaneous pen acetaminophen 325 mg capsule 325 mg PO Q6H PRN pain 10/10/24 10/26/24 Unknown History lidocaine 4 % topical cream 1 applic topical BID 10/10/24 10/26/24 Unknown History (AsperFlex (lidocaine)) Allergies Allergy/AdvReac Type Severity Reaction Status Date / Time No Known Allergies Allergy Verified 10/26/24 16:26 Review of Systems Review of Systems: All systems reviewed & are unremarkable except as noted in HPI and below PMFSH Past Medical History Medical History Lymphedema OA (osteoarthritis) GERD (gastroesophageal reflux disease) BPH (benign prostatic hyperplasia) Afib CHF (congestive heart failure) CAD (coronary artery disease) HEDY (obstructive sleep apnea) Asthma exacerbation in COPD Diabetes mellitus Hypertension Dementia Surgical History Surgical History Coronary angioplasty status Family History Family History Other Unknown family medical history Social History Social History Social History: detention resident Smoking status: Never smoker Second hand tobacco smoke exposure: No Alcohol intake: former Substance use: never Substance use type: does not use Do You Feel Safe in your Home?: Yes Lack of Transportation: No Lack of Food: Never True Current Housing: I Have Housing Concerned About Future Housing: No Difficulty Paying Gas/Electric Bills: No Difficulty Paying for Meds: No Currently Unemployed: No Education: High School Diploma/GED Difficulty w/ Childcare or Family Care: No Spiritual care concerns: No Exam Narrative: Pleasant White male patient with no apparent distress.? patient lives in rehab detention but says he lives in a trailer and does traveling. He knows his name he knows where is at but does not really know why he is here.Head normocephalic, atraumatic.? Eyes conjunctiva pink sclera nonicteric.? Extraocular movements are intact.? Ears externally normal.? Oropharynx is clear with moist mucous membranes without exudates.? Neck is supple nontender no lymphadenopathy.? Back is nontender.? Lungs are clear.? Heart is regular rate and rhythm without murmurs gallops or rubs.? Chest wall nontender. Abdomen is soft and nontender no hepatosplenomegaly or masses no CVA tenderness no abdominal bruits.? Extremities no cyanosis clubbing But has +2 edema of his lower extremities tense.? Skin is warm and dry without rashes or lesions.? Neurological patient is alert and oriented To.? Motor and sensory grossly intact.? Gait is normal. Course Vital Signs Vital signs: Vital Signs Temperature 36.1 C L 10/26/24 16:15 Pulse Rate 88 10/26/24 16:15 Respiratory Rate 18 10/26/24 16:15 Blood Pressure 133/58 L 10/26/24 16:15 Pulse Oximetry 95 10/26/24 16:15 Oxygen Delivery Nasal Cannula 10/26/24 16:15 Oxygen Flow Rate 2 10/26/24 16:15 Temperature 36.1 C L 10/26/24 16:15 Pulse Rate 85 10/26/24 19:05 Respiratory Rate 18 10/26/24 19:05 Blood Pressure 126/60 10/26/24 19:05 Pulse Oximetry 97 10/26/24 19:05 Oxygen Delivery Nasal Cannula 10/26/24 18:46 Oxygen Flow Rate 2 10/26/24 18:46 Medical Decision Making MDM Narrative Medical decision making narrative: Patient placed in room:2 Accu-Chek was 433 ? History and physical was performed. CMP glucose 364 BUN 20 chloride 96 bicarb 39, alk-phos 540, osmol 309 rest of his CMP was normal.? CBC was normal.? Beta hydroxybutyrate was negative. urine +3 glucose otherwise was negative Independent Historian: rehab facility External Source Review: last blood sugars they are elevated 255 in July Differential Dx includes but not limited to: UTI electrolyte imbalance renal insufficiency DKA Medications were Reviewed: medications reviewed Medications given: units subQ normal saline 500 cc bolus, blood sugar was 360-380 after 500 cc bolus. Patient was given 4 units of Humulin subcu Recheck blood sugar is 450. Give another 500 cc bolus of normal saline and 7 units of regular Humulin. blood sugar was 235 prior to discharge. Patient had no complaints he was doing well. Independently Interpreted by me: labs independently interpreted by me. Shared decision Making: Evaluation was discussed with the patient and his caregiver all questions were asked and answered and they agreed the plan he will continue his insulin as prescribed and follow-up with his primary care provider. Social Situation Impacting Patients Care: History of dementia detention Discussed with Dr. ANTOINE DIAGNOSIS: diabetes hyperglycemia DISPOSITION : discharge home CONDITION AT DISCHARGE: stable Vital Signs Vital Signs: Vital Signs Temperature 36.1 C L 10/26/24 16:15 Pulse Rate 88 10/26/24 16:15 Respiratory Rate 18 10/26/24 16:15 Blood Pressure 133/58 L 10/26/24 16:15 Pulse Oximetry 95 10/26/24 16:15 Oxygen Delivery Nasal Cannula 10/26/24 16:15 Oxygen Flow Rate 2 10/26/24 16:15 Temperature 36.1 C L 10/26/24 16:15 Pulse Rate 85 10/26/24 19:05 Respiratory Rate 18 10/26/24 19:05 Blood Pressure 126/60 10/26/24 19:05 Pulse Oximetry 97 10/26/24 19:05 Oxygen Delivery Nasal Cannula 10/26/24 18:46 Oxygen Flow Rate 2 10/26/24 18:46 Lab Data 10/26/24 17:32 10/26/24 17:32 Labs: Lab Results 10/26/24 10/26/24 10/26/24 Range/Units 16:24 16:59 17:32 WBC 8.1 (4.8-10.8) K/mm3 RBC 4.52 L (4.70-6.10) M/mm3 Hgb 13.6 (12.4-15.3) g/dL Hct 40.9 (37.0-46.0) % MCV 90.5 (78.0-102.0) fL MCH 30.1 (27.0-31.0) pg MCHC 33.3 (32-36) g/dL RDW 12.3 (11.6-14.4) % Plt Count 215 (150-420) K/mm3 MPV 13.0 H (8.7-11.0) fl Sodium 141 (136-145) mmol/L Potassium 3.9 (3.5-5.1) mmol/L Chloride 96 L (98-108) mmol/L Carbon Dioxide 39 H (21-32) mmol/L Anion Gap 6 (4-12) mmol/L BUN 20 H (7-18) mg/dL Creatinine 1.28 (0.70-1.30) mg/dL Estim Creat Clear Calc 48 ml/min Estimated GFR 54 L (59 - ) Glucose 364 H (70-99) mg/dL POC Capillary Glucose 433 H (65-105) mg/dl Calculated Osmolality 309 H (285-295) mOsm/kg Calcium 9.8 (8.5-10.1) mg/dL Total Bilirubin 0.5 (0.00-1.00) mg/dL AST < 10 L (15-37) U/L ALT 16 (16-63) U/L Alkaline Phosphatase 540 H (46-116) U/L Total Protein 6.9 (6.4-8.2) g/dL Albumin 3.5 (3.4-5.0) g/dL Urine Color Light yellow (Yellow) Urine Appearance Clear (Clear) Urine pH 5.5 (5.0-8.0) Ur Specific [place] 1.010 (1.010-1.020) Urine Protein Negative (Negative) Urine Glucose (UA) 3+ H (Negative) Urine Ketones Negative (Negative) Ur Blood (Man) Negative (Negative) Urine Nitrate Negative (Negative) Urine Bilirubin Negative (Negative) Urine Urobilinogen 1.0 (0.2-1.0) mg/dL Leukocyte Esterase Rfl Negative (Negative) EDREK/UL 10/26/24 10/26/24 10/26/24 Range/Units 17:34 18:24 18:26 WBC (4.8-10.8) K/mm3 RBC (4.70-6.10) M/mm3 Hgb (12.4-15.3) g/dL Hct (37.0-46.0) % MCV (78.0-102.0) fL MCH (27.0-31.0) pg MCHC (32-36) g/dL RDW (11.6-14.4) % Plt Count (150-420) K/mm3 MPV (8.7-11.0) fl Sodium (136-145) mmol/L Potassium (3.5-5.1) mmol/L Chloride (98-108) mmol/L Carbon Dioxide (21-32) mmol/L Anion Gap (4-12) mmol/L BUN (7-18) mg/dL Creatinine (0.70-1.30) mg/dL Estim Creat Clear Calc ml/min Estimated GFR (59 - ) Glucose (70-99) mg/dL POC Capillary Glucose 388 H 380 H 366 H (65-105) mg/dl Calculated Osmolality (285-295) mOsm/kg Calcium (8.5-10.1) mg/dL Total Bilirubin (0.00-1.00) mg/dL AST (15-37) U/L ALT (16-63) U/L Alkaline Phosphatase (46-116) U/L Total Protein (6.4-8.2) g/dL Albumin (3.4-5.0) g/dL Urine Color (Yellow) Urine Appearance (Clear) Urine pH (5.0-8.0) Ur Specific [place] (1.010-1.020) Urine Protein (Negative) Urine Glucose (UA) (Negative) Urine Ketones (Negative) Ur Blood (Man) (Negative) Urine Nitrate (Negative) Urine Bilirubin (Negative) Urine Urobilinogen (0.2-1.0) mg/dL Leukocyte Esterase Rfl (Negative) DEREK/UL 10/26/24 10/26/24 Range/Units 19:22 20:33 WBC (4.8-10.8) K/mm3 RBC (4.70-6.10) M/mm3 Hgb (12.4-15.3) g/dL Hct (37.0-46.0) % MCV (78.0-102.0) fL MCH (27.0-31.0) pg MCHC (32-36) g/dL RDW (11.6-14.4) % Plt Count (150-420) K/mm3 MPV (8.7-11.0) fl Sodium (136-145) mmol/L Potassium (3.5-5.1) mmol/L Chloride (98-108) mmol/L Carbon Dioxide (21-32) mmol/L Anion Gap (4-12) mmol/L BUN (7-18) mg/dL Creatinine (0.70-1.30) mg/dL Estim Creat Clear Calc ml/min Estimated GFR (59 - ) Glucose (70-99) mg/dL POC Capillary Glucose 450 H 235 H (65-105) mg/dl Calculated Osmolality (285-295) mOsm/kg Calcium (8.5-10.1) mg/dL Total Bilirubin (0.00-1.00) mg/dL AST (15-37) U/L ALT (16-63) U/L Alkaline Phosphatase (46-116) U/L Total Protein (6.4-8.2) g/dL Albumin (3.4-5.0) g/dL Urine Color (Yellow) Urine Appearance (Clear) Urine pH (5.0-8.0) Ur Specific [place] (1.010-1.020) Urine Protein (Negative) Urine Glucose (UA) (Negative) Urine Ketones (Negative) Ur Blood (Man) (Negative) Urine Nitrate (Negative) Urine Bilirubin (Negative) Urine Urobilinogen (0.2-1.0) mg/dL Leukocyte Esterase Rfl (Negative) DEREK/UL Discharge Plan Discharge Clinical Impression: Acute hyperglycemia Diabetes mellitus Qualifiers: Diabetes mellitus type: type 2 Diabetes mellitus terminal carman insulin use: with terminal carman use Diabetes mellitus complication status: without complication Qualified Code(s): E11.9 - Type 2 diabetes mellitus without complications Patient Disposition: [facility]As[facility] Living Condition: Stable Instructions: Diabetic Hyperglycemia (ED) Additional Instructions: continue medications as prescribed. follow-up with primary care provider in 3 days. Return if he gets worse or develops any new symptoms. Patient Language: Ukrainian Prescriptions: No Action ipratropium-albuterol 0.5 mg-3 mg(2.5 mg base)/3 mL Solution For Nebulization 3 ml inhalation Q6HRT PRN (Reason: shortness of breath or wheezing) Qty: 90 0RF insulin glargine 100 unit/mL solution 38 unit subcut QPM Qty: 10 0RF insulin aspart U-100 100 unit/mL (3 mL) insulin pen See Rx Instructions .ROUTE .COMPLEX Rx Instructions: per Sliding scale torsemide 100 mg tablet 100 mg PO QAM Qty: 90 0RF potassium chloride 20 mEq tablet extended release 20 meq PO DAILY rivaroxaban 15 mg tablet 15 mg PO QPM Rx Instructions: must administer with evening meal omeprazole 20 mg tablet,delayed release (DR/EC) 20 mg PO DAILY magnesium oxide 200 mg magnesium tablet 240 mg PO DAILY doxazosin 2 mg tablet 2 mg PO DAILY diltiazem HCl 240 mg capsule,extended release 24 hr 240 mg PO DAILY cetirizine 10 mg tablet 10 mg PO DAILY PRN (Reason: ALLERGIES) atorvastatin 10 mg tablet 10 mg PO QHS aspirin [Adult Aspirin Regimen] 81 mg tablet,delayed release (DR/EC) 81 mg PO DAILY acetaminophen 325 mg capsule 325 mg PO Q6H PRN (Reason: pain) lidocaine [AsperFlex (lidocaine)] 4 % cream 1 applic topical BID Follow-up/Referrals: Galen Don, DO [Primary Care Provider] - Time of Disposition: 20:43
[2024-10-26 17:35] LABS: Glucose Point of Care 388 mg/dl (65-105)
[2024-10-26] MEDS: SODIUM CHLORIDE 0.9% IV 500 ML IV CONT (17:35)
[2024-10-26 17:40] LABS: Hematocrit 40.9 % (37.0-46.0); Hemoglobin 13.6 g/dL (12.4-15.3); Mean Corpuscular HGB Conc 33.3 g/dL (32-36); Mean Corpuscular Hemoglobin 30.1 pg (27.0-31.0); Mean Corpuscular Volume 90.5 fL (78.0-102.0); Platelet Count Result 215 K/mm3 (150-420); Red Blood Count 4.52 M/mm3 (4.70-6.10); Red Cell Distribution Width 12.3 % (11.6-14.4); White Blood Count 8.1 K/mm3 (4.8-10.8)
[2024-10-26 17:44] LABS: Add Urine Microscopic? NO; Appearance Urine Clear (Clear); Bilirubin Urine Negative (Negative); Blood Urine Negative (Negative); Color Urine Light Yellow (Yellow); Glucose Urine UA 3+ (Negative); Ketones Urine Negative (Negative); Leukocyte Esterase Ur Negative LEU/UL (Negative); Nitrate Urine Negative (Negative); Protein Urine Negative (Negative); pH Urine 5.5 (5.0-8.0)
[2024-10-26 17:57] LABS: Alanine Aminotransferase 16 U/L (16-63); Albumin Level 3.5 g/dL (3.4-5.0); Alkaline Phosphatase 540 U/L (46-116); Anion Gap 6 mmol/L (4-12); Aspartate Amino Transferase < 10 U/L (15-37); Bilirubin,Total 0.5 mg/dL (0.00-1.00); Blood Urea Nitrogen 20 mg/dL (7-18); Calcium 9.8 mg/dL (8.5-10.1); Carbon Dioxide 39 mmol/L (21-32); Chloride 96 mmol/L (98-108); Estimated CRCL calculation 48 ml/min; Estimated Glomerular Filt Rate 54; Glucose 364 mg/dL (70-99); Osmolality Calculated 309 mOsm/kg (285-295); Potassium 3.9 mmol/L (3.5-5.1); Sodium 141 mmol/L (136-145); Total Protein 6.9 g/dL (6.4-8.2)
[2024-10-26 18:28] LABS: Glucose Point of Care 366 mg/dl (65-105)
[2024-10-26 18:28] LABS: Glucose Point of Care 380 mg/dl (65-105)
[2024-10-26] MEDS: INSULIN HUMAN REGULAR (*BKC) 1,000 UNITS/10 ML VIAL 4 UNITS SUB-Q (18:45)
[2024-10-26 19:24] LABS: Glucose Point of Care 450 mg/dl (65-105)
[2024-10-26] MEDS: SODIUM CHLORIDE 0.9% IV 500 ML 50 ML IV CONT (19:46)
[2024-10-26] MEDS: INSULIN HUMAN REGULAR (*BKC) 1,000 UNITS/10 ML VIAL 7 UNITS SUB-Q (19:48)
[2024-10-26 20:35] LABS: Glucose Point of Care 235 mg/dl (65-105)
--- NOTE | 2024-10-26 20:48 | PC.NURSE ---
Report called to [facility] MD for pt return.
== END 2024-10-26 21:02 ==
PROVIDERS: Emergency Provider Emergency Medicine; PCP Family Medicine
DX: E11.65 Type 2 diabetes mellitus with hyperglycemia (principal); I11.0 Hypertensive heart disease with heart failure; I50.9 Heart failure, unspecified; I25.10 Atherosclerotic heart disease of native coronary artery without angina pectoris; G47.33 Obstructive sleep apnea (adult) (pediatric); J44.9 Chronic obstructive pulmonary disease, unspecified; K21.9 Gastro-esophageal reflux disease without esophagitis; I48.91 Unspecified atrial fibrillation; N40.0 Benign prostatic hyperplasia without lower urinary tract symptoms; F03.90 Unspecified dementia, unspecified severity, without behavioral disturbance, psychotic disturbance, mood disturbance, and anxiety; M19.90 Unspecified osteoarthritis, unspecified site; Z79.4 Long term (current) use of insulin; Z79.01 Long term (current) use of anticoagulants; Z79.82 Long term (current) use of aspirin
CPT/HCPCS: 36415; 80053; 81003; 82948; 85027; 96360; 99283; J1815; J7040

== ENCOUNTER 2024-11-12 16:46 | Emergency (ER) | payer MEDICARE, MEDICAID, SELFPAY ==
[2024-11-12] VITALS (34 sets, daily range): BP systolic 105–161; BP diastolic 59–110; PULSE 79–122; RESP 18–36; TEMP 36.4; O2SAT 83–97
--- NOTE | ~2024-11-12 | XR_ITS ---
CHEST RADIOGRAPH CLINICAL HISTORY: sob RIGHT CHEST PAIN . COMPARISON: 08/24/2024 TECHNIQUE: Single portable view of the chest. FINDINGS Sternal wires and mediastinal clips are identified, the wires are midline and intact. The remainder of the cardiomediastinal silhouette is partially obscured but otherwise unremarkable. Increased interstitial markings are identified bilaterally, findings suggesting mild pulmonary vascul ar congestion. The lungs are otherwise clear. IMPRESSION: Mild pulmonary vascular congestion, without focal infiltrate or effusion. Reviewed, dictated and finalized at location [facility] [employer]
--- NOTE | 2024-11-12 16:53 | ECG_ITS ---
Test Date: 2024-11-12 17:11:00 Measurements Intervals [place] Rate: 103 P: 0 VA: 0 QRS: 57 QRSD: 141 T: 101 QT: 343 QTc: 451 Interpretive Statements ATRIAL FIBRILLATION WITH RAPID VENTRICULAR RESPONSE artifact Compared to ECG 07/18/2024 19:36:52 hr increased Electronically Signed On 11-12-2024 21:43:43 [employer] by Khalif Guillermo M.D.
--- NOTE | 2024-11-12 16:57 | ED_ITS ---
HPI - SOB/Dyspnea General Chief Complaint: Shortness of Breath/Dyspnea Stated Complaint: cough History of Present Illness HPI Narrative: Pt presents with SOB and low oxygen saturation from PCP office. Pt says he's always SOB. Pt has occasional cough. Pt denies fever or CP. Pt says is always swollen. Pt has hx of CHF and COPD and DM and CAD. Related Data Home Medications ?Medication ?Instructions ?Recorded ?Confirmed ?Last Taken ?Type aspirin 81 mg tablet,delayed 81 mg PO DAILY 06/07/24 11/01/24 07/18/24 History release (Adult Aspirin Regimen) atorvastatin 10 mg tablet 10 mg PO QHS 06/07/24 11/01/24 07/18/24 History diltiazem HCl 240 mg capsule,24 240 mg PO DAILY 06/07/24 11/01/24 07/18/24 History hr,extended release doxazosin 2 mg tablet 2 mg PO DAILY 06/07/24 11/01/24 07/18/24 History magnesium oxide 240 mg PO DAILY 06/07/24 11/01/24 07/18/24 History omeprazole 20 mg tablet,delayed 20 mg PO DAILY 06/07/24 11/01/24 07/18/24 History release potassium chloride 20 mEq 20 meq PO DAILY 06/07/24 11/01/24 07/18/24 History tablet,extended release rivaroxaban 15 mg tablet 15 mg PO QPM 06/07/24 11/01/24 07/18/24 History insulin aspart U-100 100 unit/mL See Rx Instructions .Route .COMPLEX 08/14/24 11/01/24 Unknown History (3 mL) subcutaneous pen acetaminophen 325 mg capsule 325 mg PO Q6H PRN pain 10/10/24 11/01/24 Unknown History Allergies Allergy/AdvReac Type Severity Reaction Status Date / Time No Known Allergies Allergy Verified 11/12/24 17:22 Review of Systems 2 Review of Systems: All systems reviewed & are unremarkable except as noted in HPI and below PMFSH Past Medical History Medical History (Updated 11/13/24 @ 00:01 by Jarek Roldan) Lymphedema OA (osteoarthritis) GERD (gastroesophageal reflux disease) BPH (benign prostatic hyperplasia) Afib CHF (congestive heart failure) CAD (coronary artery disease) HEDY (obstructive sleep apnea) Asthma exacerbation in COPD Hypertension Dementia Surgical History Surgical History Coronary angioplasty status Family History Family History Other Unknown family medical history Social History Social History Social History: snf resident Smoking status: Never smoker Second hand tobacco smoke exposure: No Alcohol intake: former Substance use: never Substance use type: does not use Do You Feel Safe in your Home?: Yes Lack of Transportation: No Lack of Food: Never True Current Housing: I Have Housing Concerned About Future Housing: No Difficulty Paying Gas/Electric Bills: No Difficulty Paying for Meds: No Currently Unemployed: No Education: High School Diploma/GED Difficulty w/ Childcare or Family Care: No Spiritual care concerns: No Exam 2 Const: General: no acute distress Nutritional Appearance: well nourished Orientation/consciousness: patient oriented x3 Limitations: altered mental status Eyes: EOM: EOMs intact bilaterally Chest: Chest palpation & inspection: normal inspection of the chest Resp: Effort & Inspection: normal respiratory effort Auscultation: wheezes Cardio: Rate: regular rate Rhythm: regular rhythm GI: GI Palp: Yes Soft to palpation and No Tenderness to palpation present (GI) Auscultation: normal bowel sounds Skin: General skin exam: normal color Neuro: General: moves all extremities and no focal motor deficits Speech: n ormal speech Extrem: General: edema Psych: Mental Status: mental status grossly normal Affect: normal affect Attitude: cooperative Course Vital Signs Vital signs: Vital Signs Pulse Rate 79 11/12/24 16:46 Pulse Oximetry 83 L 11/12/24 16:46 Oxygen Delivery Room Air 11/12/24 16:46 Temperature 97.6 F 11/12/24 22:55 Pulse Rate 100 11/12/24 22:55 Respiratory Rate 24 H 11/12/24 22:55 Blood Pressure 116/80 11/12/24 22:55 Pulse Oximetry 93 11/12/24 22:55 Oxygen Delivery BiPAP 11/12/24 22:55 Oxygen Flow Rate 4 11/12/24 18:01 MDM - SOB/Dyspnea MDM Narrative Medical decision making narrative: Pt from PCP office with low oxygen sat and SOB. has hx of copd and chf. will get cxr and ekg and labs including trop and bnp and give neb. pt has some pulmonary congestion on cxr but no alena pulmonary edema or infiltrate. wbc 23k, bnp and trop ok. pH 7.39, pco2 60's 02 80's. Gave dose of lasix presumptively, started on bipap 10/05 when abg came back. Rocephin and zithromax given due to high wbc. will attempt transfer. Pt rechecked. Pt awakes, says he feels better with Bipap in place. RR 22, sat 91% HR 101. Still awaiting bed [facility] full no beds. peak census. [facility] no step down beds. [facility] called back. Have an accepting doc Dr Denis, will accept to step down if bed becomes available. bed available will transfer to [facility] no beds [facility] no beds, [facility] no beds. pt added to list. [facility] no beds. on wait list. discussed with Dr Covington, household refrigeration mechanic who is willing to accept if they have beds. also discussed with , [facility] training manager also accepts. discussed with Dr north at [facility] in [facility]. will accept. Will call with bed when available. Lab Data 11/12/24 17:29 11/12/24 17:29 Labs: Lab Results 11/12/24 11/12/24 11/12/24 Range/Units 17:00 17:29 20:40 WBC 23.1 H* (4.8-10.8) K/mm3 RBC 4.90 (4.70-6.10) M/mm3 Hgb 14.4 (12.4-15.3) g/dL Hct 45.3 (37.0-46.0) % MCV 92.4 (78.0-102.0) fL MCH 29.4 (27.0-31.0) pg MCHC 31.8 L (32-36) g/dL RDW 13.2 (11.6-14.4) % Plt Count 195 (150-420) K/mm3 MPV 13.6 H (8.7-11.0) fl Immature Gran % (Auto) Not Reportable Neut % (Auto) Not Reportable Lymph % (Auto) Not Reportable Weston % (Auto) Not Reportable Eos % (Auto) Not Reportable Baso % (Auto) Not Reportable Lymph # (Auto) Not Reportable Weston # (Auto) Not Reportable Eos # (Auto) Not Reportable Baso # (Auto) Not Reportable Abs Immat Gran (auto) Not Reportable Absolute Neuts (auto) Not Reportable Absolute Nucleated RBC Not Reportable Neutrophils % (Manual) 88 H (46-73) % Band Neutrophils % 0 (0-6) % Lymphocytes % (Manual) 4 L (18-44) % Monocytes % (Manual) 8 (3-9) % Eosinophils % (Manual) 0 L (1-6) % Basophils % (Manual) 0 (0-1) % Nucleated RBC % Not Reportable Abs Neuts (Manual) 20.32 H (1.3-6.7) K/mm3 Abs Lymphs (Manual) 0.92 L (1.1-4.5) K/mm3 Abs Monocytes (Manual) 1.84 H (0.1-0.90) K/mm3 Absolute Eos (Manual) 0.00 L (0.02-0.50) K/mm3 Abs Basophils (Manual) 0.00 (0-0.1) K/mm3 Platelet Estimate Adequate (Adequate) % Immature Plt Fraction 18.1 H (1.0-7.0) % Schistocytes Not Reportable PT 13.0 H (9.50-12.1) Seconds INR 1.2 APTT 26.8 (23.9-30.70) Sec Sodium 141 (136-145) mmol/L Potassium 3.3 L (3.5-5.1) mmol/L Chloride 93 L (98-108) mmol/L Carbon Dioxide 41 H (21-32) mmol/L Anion Gap 7 (4-12) mmol/L BUN 28 H (7-18) mg/dL Creatinine 1.55 H (0.70-1.30) mg/dL Estim Creat Clear Calc 41 ml/min Estimated GFR 43 L (59 - ) Glucose 292 H (70-99) mg/dL Calculated Osmolality 308 H (285-295) mOsm/kg Lactic Acid (0.4-2.0) mmol/L Calcium 9.8 (8.5-10.1) mg/dL Magnesium 2.5 H (1.8-2.4) mg/dL Total Bilirubin 1.3 H (0.00-1.00) mg/dL AST 15 (15-37) U/L ALT 11 L (16-63) U/L Alkaline Phosphatase 404 H (46-116) U/L Troponin I 11.2 12.3 (0.00-60.4) ng/L NT-Pro-B Natriuret Pep 182 (0-450) pg/mL Total Protein 7.8 (6.4-8.2) g/dL Albumin 3.6 (3.4-5.0) g/dL Influenza A (RT-PCR) Negative (Negative) Influenza B (RT-PCR) Negative (Negative) RSV (RT-PCR) Negative (Negative) SARS-CoV-2 RNA (RT-PCR) Negative (Negative) 11/12/24 Range/Units 20:44 WBC (4.8-10.8) K/mm3 RBC (4.70-6.10) M/mm3 Hgb (12.4-15.3) g/dL Hct (37.0-46.0) % MCV (78.0-102.0) fL MCH (27.0-31.0) pg MCHC (32-36) g/dL RDW (11.6-14.4) % Plt Count (150-420) K/mm3 MPV (8.7-11.0) fl Immature Gran % (Auto) Neut % (Auto) Lymph % (Auto) Weston % (Auto) Eos % (Auto) Baso % (Auto) Lymph # (Auto) Weston # (Auto) Eos # (Auto) Baso # (Auto) Abs Immat Gran (auto) Absolute Neuts (auto) Absolute Nucleated RBC Neutrophils % (Manual) (46-73) % Band Neutrophils % (0-6) % Lymphocytes % (Manual) (18-44) % Monocytes % (Manual) (3-9) % Eosinophils % (Manual) (1-6) % Basophils % (Manual) (0-1) % Nucleated RBC % Abs Neuts (Manual) (1.3-6.7) K/mm3 Abs Lymphs (Manual) (1.1-4.5) K/mm3 Abs Monocytes (Manual) (0.1-0.90) K/mm3 Absolute Eos (Manual) (0.02-0.50) K/mm3 Abs Basophils (Manual) (0-0.1) K/mm3 Platelet Estimate (Adequate) % Immature Plt Fraction (1.0-7.0) % Schistocytes PT (9.50-12.1) Seconds INR APTT (23.9-30.70) Sec Sodium (136-145) mmol/L Potassium (3.5-5.1) mmol/L Chloride (98-108) mmol/L Carbon Dioxide (21-32) mmol/L Anion Gap (4-12) mmol/L BUN (7-18) mg/dL Creatinine (0.70-1.30) mg/dL Estim Creat Clear Calc ml/min Estimated GFR (59 - ) Glucose (70-99) mg/dL Calculated Osmolality (285-295) mOsm/kg Lactic Acid 1.5 (0.4-2.0) mmol/L Calcium (8.5-10.1) mg/dL Magnesium (1.8-2.4) mg/dL Total Bilirubin (0.00-1.00) mg/dL AST (15-37) U/L ALT (16-63) U/L Alkaline Phosphatase (46-116) U/L Troponin I (0.00-60.4) ng/L NT-Pro-B Natriuret Pep (0-450) pg/mL Total Protein (6.4-8.2) g/dL Albumin (3.4-5.0) g/dL Influenza A (RT-PCR) (Negative) Influenza B (RT-PCR) (Negative) RSV (RT-PCR) (Negative) SARS-CoV-2 RNA (RT-PCR) (Negative) ABG Data ABG results: 11/12/24 17:29 Puncture Site Not Reportable ABG pH 7.39 ABG pCO2 67.1 H ABG pO2 78.9 ABG PO2/FiO2 Ratio Not Reportable ABG HCO3 39.3 H ABG O2 Saturation 94.3 L ABG O2 Content 19.9 ABG Base Excess 11.1 H A-a Gradient Not Reportable Oxyhemoglobin 93.0 L O2 Delivery Device Not Reportable O2 Liters/Min Not Reportable ECG Data EKG #1: Interpretation: a fib with mild rvr rate 104 st changes anterior leads Critical Care Time Critical Care Time Critical Care Time: Yes Total Critical Care Time: 42 Discharge Plan Discharge Clinical Impression: Respiratory failure with hypercapnia, Respiratory failure with hypoxia, COPD exacerbation Patient Disposition: Acute Care Hospital Condition: Guarded Prognosis Patient Language: Iranian Prescriptions: No Action ipratropium-albuterol 0.5 mg-3 mg(2.5 mg base)/3 mL Solution For Nebulization 3 ml inhalation Q6HRT PRN (Reason: shortness of breath or wheezing) Qty: 90 0RF insulin glargine 100 unit/mL solution 38 unit subcut QPM Qty: 10 0RF insulin aspart U-100 100 unit/mL (3 mL) insulin pen See Rx Instructions .ROUTE .COMPLEX Rx Instructions: per Sliding scale torsemide 100 mg tablet 100 mg PO QAM Qty: 90 0RF potassium chloride 20 mEq tablet extended release 20 meq PO DAILY rivaroxaban 15 mg tablet 15 mg PO QPM Rx Instructions: must administer with evening meal omeprazole 20 mg tablet,delayed release (DR/EC) 20 mg PO DAILY magnesium oxide 200 mg magnesium tablet 240 mg PO DAILY doxazosin 2 mg tablet 2 mg PO DAILY diltiazem HCl 240 mg capsule,extended release 24 hr 240 mg PO DAILY atorvastatin 10 mg tablet 10 mg PO QHS aspirin [Adult Aspirin Regimen] 81 mg tablet,delayed release (DR/EC) 81 mg PO DAILY acetaminophen 325 mg capsule 325 mg PO Q6H PRN (Reason: pain) dapagliflozin propanediol [Farxiga] 10 mg tablet 10 mg PO DAILY Qty: 90 0RF Trulicity 0.75 mg/0.5 mL pen injector 0.75 mg subcut WEEKLY Qty: 2 0RF Follow-up/Referrals: Galen Don DO [Primary Care Provider] -
[2024-11-12] MEDS: IPRATROPIUM 0.5 MG/ALBUTEROL SULFATE 2.5 MG AMPUL.NEB 3 ML INHALATION (17:04)
--- NOTE | 2024-11-12 17:12 | PC.NURSE ---
Covid culture sent to lab
[2024-11-12 17:37] LABS: Base Excess ABG 11.1 mmol/L (0-2); HCO3 ABG 39.3 mmol/L (23-29); Hematocrit 45.3 % (37.0-46.0); Hemoglobin 14.4 g/dL (12.4-15.3); Immature Platelet Fraction Pct 18.1 % (1.0-7.0); Mean Corpuscular HGB Conc 31.8 g/dL (32-36); Mean Corpuscular Hemoglobin 29.4 pg (27.0-31.0); Mean Corpuscular Volume 92.4 fL (78.0-102.0); Mean Platelet Volume 13.6 fl (8.7-11.0); Oxygen Content ABG 19.9 %vol (16.0-22.0); Oxygen Saturation ABG 94.3 % (95-97); PCO2 ABG 67.1 mmHg (35-45); PO2 ABG 78.9 mmHg (75-85); Platelet Count Result 195 K/mm3 (150-420); Red Cell Distribution Width 13.2 % (11.6-14.4); pH ABG 7.39 (7.35-7.45)
[2024-11-12 17:41] LABS: White Blood Count 23.1 K/mm3 (4.8-10.8)
[2024-11-12 17:47] LABS: Band Neutrophils Percent 0 % (0-6); Basophils Percent Manual 0 % (0-1); Eosinophils Percent Manual 0 % (1-6); Lymphocytes Absolute Manual 0.92 K/mm3 (1.1-4.5); Lymphocytes Percent Manual 4 % (18-44); Monocytes Absolute Manual 1.84 K/mm3 (0.1-0.90); Monocytes Percent Manual 8 % (3-9); Neutrophils Absolute Manual 20.32 K/mm3 (1.3-6.7); Neutrophils Percent Manual 88 % (46-73); Platelet Estimate Adequate (Adequate)
[2024-11-12 17:49] LABS: INR 1.2; Partial Thromboplastin Time 26.8 Sec (23.9-30.70)
[2024-11-12 17:58] LABS: Alanine Aminotransferase 11 U/L (16-63); Albumin Level 3.6 g/dL (3.4-5.0); Alkaline Phosphatase 404 U/L (46-116); Anion Gap 7 mmol/L (4-12); Aspartate Amino Transferase 15 U/L (15-37); Bilirubin,Total 1.3 mg/dL (0.00-1.00); Blood Urea Nitrogen 28 mg/dL (7-18); Calcium 9.8 mg/dL (8.5-10.1); Carbon Dioxide 41 mmol/L (21-32); Chloride 93 mmol/L (98-108); Estimated CRCL calculation 41 ml/min; Estimated Glomerular Filt Rate 43; Glucose 292 mg/dL (70-99); Magnesium 2.5 mg/dL (1.8-2.4); NT Pro B Type Natriuretic Pept 182 pg/mL (0-450); Osmolality Calculated 308 mOsm/kg (285-295); Potassium 3.3 mmol/L (3.5-5.1); Sodium 141 mmol/L (136-145); Total Protein 7.8 g/dL (6.4-8.2); Troponin I 11.2 ng/L (0.00-60.4)
[2024-11-12 17:58] LABS: SARS-CoV-2 RNA PCR Negative (Negative)
--- NOTE | 2024-11-12 17:59 | PC.NURSE ---
CALL TO [facility], RESPIRATORY STAFF , TO APPLY BIBAP ORDERED PER DR SPENCE.
[2024-11-12 18:00] LABS: Influenza A QL RT-PCR Negative (Negative); Influenza B QL RT-PCR Negative (Negative); RSV RNA, RT-PCR Negative (Negative)
[2024-11-12] MEDS: FUROSEMIDE INJ 40 MG/4 ML VIAL IV PUSH (18:26)
[2024-11-12] MEDS: methylPREDNISolone SOD SUCC 125 MG VIAL IV PUSH (18:27)
[2024-11-12] MEDS: AZITHROMYCIN 500 MG/NS 250 ML 500 MG/250 ML BAG 250 MG IVPB (18:33)
[2024-11-12] MEDS: cefTRIAXone 2 GM/NS 100 ML 2 GM/100 ML BAG IVPB (18:35)
--- NOTE | 2024-11-12 19:02 | PC.NURSE ---
report to gaetano bravo
--- NOTE | 2024-11-12 19:44 | PC.NURSE ---
Pts daughter called per his request and updated on pt condition. Pts daughter wasn't aware that he was in the ER. Pts. daughter states his granddaughter Patricia is his POA and to call her also to update her on condition. Informed daughter that pt is on a waitlist for multiple facilities and will transfer to a facility when bed is available. Pt daughter thankful for calling to update her.
[2024-11-12] MEDS: VANCOMYCIN 1,250 MG/NS 250 ML 1,250 MG/250 ML BAG 166.67 MG IVPB ×2 (20:00→21:31)
--- NOTE | 2024-11-12 20:05 | PC.NURSE ---
Pt is awake and pulling bipap mask off he is agitated and stating I am the boss and dont need that mask After mask is taken off pt desat to 85%. ERP Dr Ibarra in to talk w/ pt. about needing the bipap mask to help him breathe. Pt is confused stating I don't need no colored masks . Pt is not oriented to surroundings at this time. Pts g-daughter KALYANI called and updated on pt status and need for transfer. Received ok from KALYANI Gomez to transfer to facility that has a bed available. After Dr ibarra spoke to pt and he was given a sip of water he was agreeable to putting bipap mask back on, Bipap back in place then SPO2 increased to 96%.
--- NOTE | 2024-11-12 20:59 | PC.NURSE ---
Pt sleeping, continuing to monitor, VSS, afib on monitor, bipap in place and pt SPO2 at 93%. Awaiting bed placement at [facility] in [place], [place].
[2024-11-12 21:04] LABS: Lactic Acid Reflex 1.5 mmol/L (0.4-2.0)
[2024-11-12 21:08] LABS: Troponin I 12.3 ng/L (0.00-60.4)
--- NOTE | 2024-11-12 21:52 | PC.NURSE ---
Pt sleeping and resting comfortably, able to arouse to verbal and pt will awake. VSS, continuing to monitor. Call back made to [facility] for [facility] in [facility], and told they have no beds but will continue to work on it and let us know when one is available.
--- NOTE | 2024-11-12 22:11 | PC.NURSE ---
Pt accepted at [facility] received and report given.
--- NOTE | 2024-11-12 22:24 | PC.NURSE ---
Call placed to pts POA granddaughter Miah and [facility]
[2024-11-13 07:38] LABS: Total Hemoglobin 15.2 g/dL (12.0-18.0)
--- NOTE | 2024-11-14 12:15 | PC.NURSE ---
PRELIMINARY BLOOD CULTURE RESULTS X2: NO GROWTH TO DATE
== END 2024-11-12 22:55 | disposition short-term general hospital (02) ==
PROVIDERS: Emergency Provider Emergency Medicine; PCP Family Medicine
DX: J96.92 Respiratory failure, unspecified with hypercapnia (principal); J44.1 Chronic obstructive pulmonary disease with (acute) exacerbation; J44.9 Chronic obstructive pulmonary disease, unspecified; I25.10 Atherosclerotic heart disease of native coronary artery without angina pectoris; I11.0 Hypertensive heart disease with heart failure; I50.9 Heart failure, unspecified; F03.90 Unspecified dementia, unspecified severity, without behavioral disturbance, psychotic disturbance, mood disturbance, and anxiety; Z20.822 Contact with and (suspected) exposure to COVID-19
CPT/HCPCS: 36415; 36600; 71045; 80053; 82805; 83605; 83735; 83880; 84484; 85018; 85025; 85055; 85610; 85730; 87040; 87637; 93005; 94640; 96365; 96366; 96367; 96375; 99291; J0456; J0696; J1940; J2919; J3370

== ENCOUNTER 2025-02-08 17:19 | Outpatient (NON) | payer OTHER, SELFPAY ==
--- OUTSIDE RECORDS SUMMARY | 2025-02-08 17:22 | XMS_ITS | Clinical Summary ---
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 Every Tuesday for Type 2 diabetes Active dapagliflozin propanediol (Farxiga) 10 mg Tablet Take 10 mg by mouth daily. Active acetaminophen (TYLENOL ARTHRITIS) 650 mg Extended Release tablet Take 650 mg by mouth every 4 hours as needed for Pain. Active torsemide (DEMADEX) 100 mg tablet Take 100 mg by mouth daily. Active aspirin (LINDSAY CHEWABLE) 81 mg Tablet, Chewable Take 81 mg by mouth daily. Active Magnesium Hydroxide 400 mg (170 mg magnesium) Tablet, Chewable Take 1 Tablet by mouth daily. Active doxazosin (CARDURA) 2 mg tablet Take 2 mg by mouth daily. Active potassium chloride (KLOR-CON M20) 20 mEq Extended Release tablet Take 20 mEq by mouth daily. Active insulin glargine (LANTUS) 100 unit/mL injection Inject 38 Units by subcutaneous injection daily at bedtime. Active diltiaZEM (CARDIZEM LA) 240 mg Extended Release 24 hour tablet Take 240 mg by mouth daily. Active atorvastatin (LIPITOR) 10 mg tablet Take 10 mg by mouth daily. Active omeprazole (PriLOSEC) 20 mg Capsule, Delayed Release(E.C.) Take 20 mg by mouth daily. Active rivaroxaban (XARELTO) 15 mg Tablet Take 15 mg by mouth daily with supper. Active ipratropium-albu teroL (DUONEB) 0.5 mg-3 mg(2.5 mg base)/3 mL Solution for Nebulization Take 3 mL by inhalation every 6 hours as needed for Shortness of Breath. Active montelukast (SINGULAIR) 5 mg Tablet, Chewable Take 2 Tablets (10 mg) by mouth daily at bedtime. 30 Tablet Active fluticasone furoate-vilanter oL (BREO ELLIPTA) 200-25 mcg/dose Disk with Device Take 1 Puff by inhalation daily. 2 Each Active Active Problems Problem Noted Date Diagnosed Date Acute on chronic diastolic heart failure 025 Benign prostatic hyperplasia with lower urinary tract symptoms 11/13/2024 Cellulitis of right lower limb 11/13/2024 Gastroesophageal reflux disease without esophagi tis 11/13/2024 CAD (coronary atherosclerotic disease) Asthma 11/13/2024 Dementia without behavioral disturbance 11/13/19 Chronic obstructive pulmonar y disease with acute exacerbation 11/13/2024 Benign hypertension 11/13/2024 HEDY (obstructive sleep apnea) 11/13/2024 Pneumonia 11/13/2024 DM (diabetes mellitus), type 2 11/13/2024 A-fib 11/13/2024 Acute hypoxic on chronic hypercapnic respiratory failure 11/13/2024 Confusion and disorientation 11/13/2024 Elevated troponin 11/13/2024 Cellulitis of left lower extremity 11/13/2024 ALIYAH (acute kidney injury) 11/13/2024 Encounters Date Type Department Care Team Description 01/22/2025 External Device Data [facility] Provider, Abstract 01/16/2025 External Device Data [facility] Provider, Abstract 01/05/2025 External Device Data [facility] Provider, Abstract 01/04/2025 External Device Data [facility] Provider, Abstract 2024 External Device Data [facility] Provider, Abstract 12/18/2024 External Device Data [facility] Provider, Abstract 11/27/2024 External Device Data [facility] Provider, Abstract 11/21/2024 External Device Data [facility] Provider, Abstract 11/21/2024 External Device Data [facility] Provider, Abstract 11/20/2024 External Device Data [facility]CTION Provider, Abstract 11/14/2024 Travel 11/13/2024 12:32 AM UMBRELLA FINISHER - 11/21/2024 5:50 PM UMBRELLA FINISHER Hospital Encounter [facility] Trauma Neuro [facility] [address] [place] [address] Deena Denis MD Zhang, Wei, MD Sangani, Vikram, MD Acute hypoxic on chronic hypercapnic respiratory failure (CMS/HCC) Discharge Disposition: Intermediate Care Facility from Last 3 Months Family History Medical History Relation Name Comments No Known Problems Father Relation Name Status Comments Father Social History Tobacco Use Types Packs/Day Years Used Date Smoking Tobacco: Former Cigarettes Tobacco Cessation:Counseling Given: Not Answered Feeling Safe Answer Date Recorded Are you in a relationship wi th someone who hurts you emotionally and/or physically? No 11/14/2024 Food Insecurity Answer Date Recorded Social/Environmental Concerns No concerns Transportation Needs Answer Date Record ed Social/Environmental Concerns No concerns Housing Stability Answer Date Recorded Social/Environmental Concerns No concerns Utility Needs Answer Date Recorded Social/Environmental Concerns No concerns Sex and Gender Information Value Date Recorded Sex Assigned at Not on file Legal Sex Male 6:29 PM UMBRELLA FINISHER Gender Identity Not on file Sexual Orientation Not on file Last Filed Vital Signs Vital Sign Reading Time Taken Comments Blood Pressure 126/68 11/21/2024 4:00 PM UMBRELLA FINISHER Pulse 80 11/21/2024 4:40 PM UMBRELLA FINISHER Temperature 36.4 C (97.6 F) 11/21/2024 4:40 PM UMBRELLA FINISHER Respiratory Rate 25 11/21/2024 4:00 PM UMBRELLA FINISHER Oxygen Saturation 91% 11/21/2024 4:40 PM UMBRELLA FINISHER Inhaled Oxygen Concentration - - Weight 112.8 kg (248 lb 9.6 oz) 11/19/2024 1:00 PM UMBRELLA FINISHER Height 170.2 cm (5' 7 ) 11/13/2024 12:4 0 AM UMBRELLA FINISHER Body Mass Index 38.94 11/13/2024 12:40 AM UMBRELLA FINISHER Plan of Treatment Health Maintenance Due Date Last Done Comments DIABETES ANNUAL FOOT EXAM 1960 DIABETES ANNUAL RETINAL EXAM 1960 DIABETES MICROALBUMIN ANNUAL SCREEN 1960 LDL CHOLESTEROL ANNUAL 1958 Traditional Medicare (ACO) A nnual Wellness Visit 1961 ZOSTER VACCINE (1 of 2) 1992 RSV VACCINE (60+ or ) (1 - 1-dose 75+ series) 2017 INFLUENZA VACCINE (#1) 2024 , 08/07/2021, 07/30/2020, Additional history exists DIABETES HBA1C Q 6 MONTHS 11/30/2024 05/30/2024 DTAP/TDAP/TD VACCINES (2 - T d or Tdap) 04/03/2029 04/03/2019 PNEUMOCOCCAL VACCINE 50+ YEARS Completed 0 01/06/2022, 08/19/2018, 03/27/2015, Additional history exists Procedures Procedure Name Priority Date/Time Associated Diagnosis Comments TELEMETRY REPORT 11/22/2024 1:07 PM UMBRELLA FINISHER POC GLUCOSE Routine 11/21/2024 5:26 PM UMBRELLA FINISHER POC GLUCOSE Routine 11/21/2024 1:10 PM UMBRELLA FINISHER POC GLUCOSE Routine 11/21/2024 1:08 PM UMBRELLA FINISHER POC GLUCOSE Routine 11/21/2024 12:47 PM UMBRELLA FINISHER POC GLUCOSE Routine 11/21/2024 9:37 AM UMBRELLA FINISHER DIFFERENTIAL, MANUAL Routine 11/21/2024 7:01 AM UMBRELLA FINISHER BASIC METABOLIC PANEL Routine 11/21/2024 7:01 AM UMBRELLA FINISHER CBC WITH DIFFERENTIAL Routine 11/21/2024 7:01 AM UMBRELLA FINISHER POC GLUCOSE Routine 11/20/2024 9:24 PM UMBRELLA FINISHER POC GLUCOSE Routine 11/20/2024 5:18 PM UMBRELLA FINISHER POC GLUCOSE Routine 11/20/2024 12:02 PM UMBRELLA FINISHER POC GLUCOSE Routine 11/20/2024 8:34 AM UMBRELLA FINISHER DIFFERENTIAL, MANUAL Routine 11/20/2024 3:29 AM UMBRELLA FINISHER BASIC METABOLIC PANEL Routine 11/20/2024 3:29 AM UMBRELLA FINISHER CBC WITH DIFFERENTIAL Routine 11/20/2024 3:29 AM UMBRELLA FINISHER POC GLUCOSE Routine 11/19/2024 9:22 PM UMBRELLA FINISHER POC GLUCOSE Routine 11/19/2024 6:19 PM UMBRELLA FINISHER POC GLUCOSE Routine 11/19/2024 2:07 PM UMBRELLA FINISHER CTA CHEST W AND/OR WO CONTRAST Pending Discharge 11/19/2024 1:52 PM UMBRELLA FINISHER POC GLUCOSE Routine 11/19/2024 12:42 PM UMBRELLA FINISHER D-DIMER Stat 11/19/2024 11:12 AM UMBRELLA FINISHER DIFFERENTIAL, MANUAL Routine 11/19/2024 9:14 AM UMBRELLA FINISHER BASIC METABOLIC PANEL Routine 11/19/2024 9:14 AM UMBRELLA FINISHER CBC WITH DIFFERENTIAL Routine 11/19/2024 9:14 AM UMBRELLA FINISHER POC GLUCOSE Routine 11/19/2024 7:30 AM UMBRELLA FINISHER POC GLUCOSE Routine 11/19/2024 12:14 AM UMBRELLA FINISHER POC GLUCOSE Routine 11/18/2024 9:36 PM UMBRELLA FINISHER POC GLUCOSE Routine 11/18/2024 6:03 PM UMBRELLA FINISHER POC GLUCOSE Routine 11/18/2024 12:46 PM UMBRELLA FINISHER XR CHEST PA OR AP 1 VW Routine 11/18/2024 8:50 AM UMBRELLA FINISHER POC GLUCOSE Routine 11/18/2024 7:09 AM UMBRELLA FINISHER BLOOD GAS ARTERIAL Routine 11/18/2024 4: 22 AM UMBRELLA FINISHER BRAIN NATRIURETIC PEPTIDE, BNP OR PROBNP Routine 11/18/2024 4:15 AM UMBRELLA FINISHER PROCALCITONIN Routine 11/18/2024 4:15 AM UMBRELLA FINISHER BASIC METABOLIC PANEL Routine 11/18/2024 4:15 AM UMBRELLA FINISHER CBC WITH DIFFERENTIAL Routine 11/18/2024 4:15 AM UMBRELLA FINISHER POC GLUCOSE Routine 11/18/2024 3:46 AM UMBRELLA FINISHER POC GLUCOSE Routine 11/17/2024 11:53 PM UMBRELLA FINISHER POC GLUCOSE Routine 11/17/2024 8:02 PM UMBRELLA FINISHER POC GLUCOSE Routine 11/17/2024 5:15 PM UMBRELLA FINISHER BASIC METABOLIC PANEL Routine 11/17/2024 10:49 AM UMBRELLA FINISHER CBC WITH DIFFERENTIAL Routine 11/17/2024 10:49 AM UMBRELLA FINISHER POC GLUCOSE Routine 11/17/2024 7:57 AM UMBRELLA FINISHER POC GLUCOSE Routine 11/17/2024 4:36 AM UMBRELLA FINISHER POC GLUCOSE Routine 11/17/2024 12:48 AM UMBRELLA FINISHER POC GLUCOSE Routine 11/17/2024 12:01 AM UMBRELLA FINISHER POC GLUCOSE Routine 11/16/2024 8:25 PM UMBRELLA FINISHER POC GLUCOSE Routine 11/16/2024 6:35 PM UMBRELLA FINISHER POC GLUCOSE Routine 11/16/2024 2:08 PM UMBRELLA FINISHER CBC WITH DIFFERENTIAL Routine 11/16/2024 7:38 AM UMBRELLA FINISHER BASIC METABOLIC PANEL Routine 11/16/2024 7:38 AM UMBRELLA FINISHER POC GLUCOSE Routine 11/16/2024 7:37 AM UMBRELLA FINISHER POC GLUCOSE Routine 11/16/2024 4:00 AM UMBRELLA FINISHER POC GLUCOSE Routine 11/16/2024 12:28 AM UMBRELLA FINISHER POC GLUCOSE Routine 11/15/2024 8:07 PM UMBRELLA FINISHER POC GLUCOSE Routine 11/15/2024 5:20 PM UMBRELLA FINISHER POC GLUCOSE Routine 11/15/2024 12:29 PM UMBRELLA FINISHER CBC WITH DIFFERENTIAL Routine 11/15/2024 9:50 AM UMBRELLA FINISHER POC GLUCOSE Routine 11/15/2024 7:56 AM UMBRELLA FINISHER BASIC METABOLIC PANEL Routine 11/15/2024 4:35 AM UMBRELLA FINISHER POC GLUCOSE Routine 11/15/2024 4:23 AM UMBRELLA FINISHER POC GLUCOSE Routine 11/15/2024 12:01 AM UMBRELLA FINISHER POC GLUCOSE Routine 11/14/2024 8:41 PM UMBRELLA FINISHER POC GLUCOSE Routine 11/14/2024 6:37 PM UMBRELLA FINISHER POC GLUCOSE Routine 11/14/2024 5:14 PM UMBRELLA FINISHER SPUTUM CULTURE WITH GRAM STAIN Routine 11/14/2024 2:16 PM UMBRELLA FINISHER PNEUMONIA PATHOGEN PCR PANEL Routine 11/14/2024 2:16 PM UMBRELLA FINISHER MRSA PCR RAPID SCREEN Routine 11/14/2024 2:10 PM UMBRELLA FINISHER RESPIRATORY PATHOGEN PCR PANEL Routine 11/14/2024 2:10 PM UMBRELLA FINISHER POC GLUCOSE Routine 11/14/2024 12:06 PM UMBRELLA FINISHER POC GLUCOSE Routine 11/14/2024 7:34 AM UMBRELLA FINISHER ECHOCARDIOGRAM W/ CONTRAST AGENT Routine 11/14/2024 7:14 AM UMBRELLA FINISHER VANCOMYCIN LEVEL RANDOM Routine 11/14/2024 4:58 AM UMBRELLA FINISHER CBC WITH DIFFERENTIAL Routine 11/14/2024 4:58 AM UMBRELLA FINISHER POC GLUCOSE Routine 11/14/2024 4:49 AM UMBRELLA FINISHER POC GLUCOSE Routine 11/13/2024 11:53 PM UMBRELLA FINISHER POC GLUCOSE Routine 11/13/2024 8:30 PM UMBRELLA FINISHER HEMOGLOBIN AND HEMATOCRIT Routine 11/13/2024 5:32 PM UMBRELLA FINISHER POC GLUCOSE Routine 11/13/2024 4:05 PM UMBRELLA FINISHER POC GLUCOSE Routine 11/13/2024 12:07 PM UMBRELLA FINISHER XR CHEST PA OR AP 1 VW Routine 11/13/2024 11:54 AM UMBRELLA FINISHER TROPONIN 6 HR, 5TH GEN Timed Study 11/13/2024 8:19 AM UMBRELLA FINISHER POC GLUCOSE Routine 11/13/2024 8:09 AM UMBRELLA FINISHER EKG 12-LEAD Stat 11/13/2024 5:20 AM UMBRELLA FINISHER TROPONIN 2 HR, 5TH GEN Timed Study 11/13/2024 3:56 AM UMBRELLA FINISHER URINALYSIS W/REFLEX MICROSCOPIC Routine 11/13/2024 2:16 AM UMBRELLA FINISHER BLOOD GAS VENOUS Routine 11/13/2024 2:12 AM UMBRELLA FINISHER BRAIN NATRIURETIC PEPTIDE, BNP OR PROBNP Routine 11/13/2024 2:10 AM UMBRELLA FINISHER TROPONIN BASELINE, 5TH GEN Stat 11/13/2024 2:10 AM UMBRELLA FINISHER PROCALCITONIN Routine 11/13/2024 2:10 AM UMBRELLA FINISHER COMPREHENSIVE METABOLIC PANEL Routine 11/13/2024 2:10 AM UMBRELLA FINISHER CBC WITH DIFFERENTIAL Routine 11/13/2024 2:10 AM UMBRELLA FINISHER POC GLUCOSE Routine 11/13/2024 2:07 AM UMBRELLA FINISHER from Last 3 Months Results * TELEMETRY REPORT (11/22/2024 1:07 PM UMBRELLA FINISHER) Provider Scanning ECG ORDERABLES Final Result * (ABNORMAL) POC GLUCOSE (11/21/2024 5:26 PM UMBRELLA FINISHER) Only the most recent of51 resultswithin the time period is included. GLUCOSE POC 320(H) 74 - 99 mg/dL 11/21/2024 5:26 PM UMBRELLA FINISHER [facility] SPECIMEN SOURCE, GLUCOSE POC Whole Blood 11/21/2024 5:26 PM UMBRELLA FINISHER [facility] COMMENT, GLU POC Notified RN/MD 11/21/2024 5:26 PM UMBRELLA FINISHER [facility] COMMENT 2, GLU POC Repeated Glucose 11/21/2024 5:26 PM UMBRELLA FINISHER [facility] Blood, whole 11/21/2024 5:26 PM UMBRELLA FINISHER 11/21/2024 5:36 PM UMBRELLA FINISHER Ismael Austin MD POINT OF CARE TESTING Final Re sult [facility] CLIA# [id number] [address] [facility] [place] [address] * (ABNORMAL) MANUAL DIFFERENTIAL (11/21/2024 7:01 AM UMBRELLA FINISHER) Only the most recent of3 resultswithin the time period is included. SEGMENTED NEUTROPHILS 83 % 11/21/2024 8:45 AM UMBRELLA FINISHER [employer] [facility] LYMPHOCYTES RELATIVE 10(L) 43 - 53 % 11/21/2024 8:45 AM UMBRELLA FINISHER [employer] [facility] ATYPICAL LYMPHOCYTES RELATIVE 2 0 - 5 % 11/21/2024 8:45 AM UMBRELLA FINISHER [employer] [facility] MONOCYTES RELATIVE 4 % 11/21/2024 8:45 AM UMBRELLA FINISHER [employer] [facility] EOSINOPHILS RELATIVE 1 % 11/21/2024 8:45 AM [facility] [employer] [facility] [place] [place] METAMYELOCYTES RELATIVE 1(H) <=0 % 11/21/2024 8:45 AM UMBRELLA FINISHER [employer] [facility] NEUTROPHILS ABSOLUTE COUNT 14.59(H) 1.90 - 7.00 K/uL 11/21/2024 8:45 AM UMBRELLA FINISHER [employer] [facility] LYMPHOCYTES ABSOLUTE 1.74 0.70 - 4.50 K/uL 11/21/2024 8:45 AM UMBRELLA FINISHER [employer] [facility] MONOCYTES ABSOLUTE 0.63 0.10 - 1.30 K/uL 11/21/2024 8:45 AM UMBRELLA FINISHER [employer] [facility] [place] EOSINOPHILS ABSOLUTE 0.16 0.00 - 0.70 K/uL 11/21/2024 8:45 AM [employer] [facility] TOTAL CELLS COUNTED IN DIFF 111 11/21/2024 8:45 AM [employer] [facility] RBC MORPHOLOGY abnormal 11/21/2024 8:45 AM [facility] PLATELET EST. Consistent w Count 11/21/2024 8:45 AM [facility] POIKILOCYTES 1+ /hpf 11/21/2024 8:45 AM [employer] [facility] OVALOCYTES 1+ /hpf 11/21/2024 8:45 AM [facility] Blood Venipuncture / Unknown 11/21/2024 7:01 AM UMBRELLA FINISHER 11/21/2024 7:23 AM UMBRELLA FINISHER us Ismael Austin MD HEMATOLOGY ORDERABLES COM Jaky lindsay Result [employer] [facility]AT[facility] SERVICES - [facility] CLIA# [id number] [address] [place] [address] * (ABNORMAL) CBC WITH DIFFERENTIAL (11/21/2024 7:01 AM UMBRELLA FINISHER) Only the most recent of9 resultswithin the time period is included. WBC 17.6(H) 4.0 - 9.8 K/uL 11/21/2024 8:13 AM [facility] [employer] LABORATORY SERVICES - . [facility] RBC 4.86 4.50 - 5.40 M/uL 11/21/2024 8:13 AM [facility] [place] HEMOGLOBIN 14.2 13.6 - 16.5 g/dL 11/21/2024 8:13 AM [facility] [employer] [facility] [place] HEMATOCRIT 43.8 40.0 - 48.0 % 11/21/2024 8:13 AM [facility] [employer] [facility] MCV 90.1 82.0 - 99.0 fL 11/21/2024 8:13 AM [facility] [employer] [facility] - [place] MCH 29.2 27.2 - 32.6 pg 11/21/2024 8:13 AM [facility] [employer] [facility] - [place] MCHC 32.4 31.5 - 35.5 g/dL 11/21/2024 8:13 AM UMBRELLA FINISHER [employer] [facility] [place] RDW 13.2 11.5 - 14.5 % 11/21/2024 8:13 AM UMBRELLA FINISHER [employer] [facility] [place] RDW-STDEV 43.1 37.1 - 48.7 fL 11/21/2024 8:13 AM [facility] [employer] [facility] - [facility] [place] PLATELETS 250 140 - 350 K/uL 11/21/2024 8:13 AM [facility] MPV 13.6(H) 9.3 - 12.4 fL 11/21/2024 8:13 AM [facility] [employer] [facility] Blood Venipuncture / Unknown 11/21/2024 7:01 AM UMBRELLA FINISHER 11/21/2024 7:23 AM UMBRELLA FINISHER us Ismael Austin MD HEMATOLOGY ORDERABLES Final Re sult [facility] [employer] [facility]# [id number] [address] [facility] [place] [address] * (ABNORMAL) BASIC METABOLIC PANEL (11/21/2024 7:01 AM UMBRELLA FINISHER) Only the most recent of7 resultswithin the time period is included. SODIUM 132(L) 136 - 145 mmol/L 11/21/2024 8:13 AM [facility] [employer] [facility] POTASSIUM 3.8 3.5 - 5.0 mmol/L 11/21/2024 8:13 AM [facility] [employer] [facility] CHLORIDE 87(L) 98 - 107 mmol/L 11/21/2024 8:13 AM [facility] [employer] [facility] CO2 35(H) 22 - 29 mmol/L 11/21/2024 8:13 AM [facility] [employer] [facility] CALCIUM 9.4 8.6 - 10.2 mg/dL 11/21/2024 8:13 AM [facility] [employer] [facility] BUN 28(H) 8 - 23 mg/dL 11/21/2024 8:13 AM [facility] [employer] [facility] CREATININE 0.95 0.67 - 1.17 mg/dL 11/21/2024 8:13 AM [facility] [employer] [facility] Comment:The GFR result is no t clinically significant on patients <18 or >70 years of age. GLUCOSE 285(H) 74 - 99 mg/dL 11/21/2024 8:13 AM [facility] [employer] [facility] GFR >60 mL/min/1.7 3 sq meter 11/21/2024 8:13 AM [facility] Comment:eGFR calculated with 2020 CKD-EPI equation. Vegetarian diet, extremely high or low muscle mass, and may affect results. Cystatin C with Glomerular Filtration Rate is a suitable alternative for these patients. ANION GAP 10 8 - 16 mmol/L 11/21/2024 8:13 AM UMBRELLA FINISHER [facility] Blood Venipuncture / Unknown 11/21/2024 7:01 AM UMBRELLA FINISHER 11/21/2024 7:23 AM UMBRELLA FINISHER us Ismael Austin MD CHEMISTRY ORDERABLES Final Res ult [facility] CLIA# [id number] [address] [place] [address] * CTA CHEST W AND/OR WO CONTRAST (11/19/2024 1:52 PM UMBRELLA FINISHER) Anatomical Region Laterality Modality Chest Computed Tomogra phy 11/19/2024 1:54 PM UMBRELLA FINISHER Impressions 11/19/2024 2:06 PM UMBRELLA FINISHER IMPRESSION: 1. No pulmonary embolism. 2. Mucous plugging and moderate atelectasis in both lower lobes. DICTATION LOCATION: Location 1 - [facility] Narrative 11/19/2024 2:06 PM UMBRELLA FINISHER EXAMINATION: CTA OF THE CHEST WITH INTRAVENOUS CONTRAST DATE: 11/19/2024 1:52 PM TECHNIQUE: CT angiography of the chest was performed following the administration of intravenous contrast according to the pulmonary embolism protocol. The examination was performed with the adjustment of mA according to the patient size and/or the use of Iterative Reconstruction Technique. Maximum intensity projection (MIP) images were reconstructed in multiple obliquities and sent to the workstation for review. CONTRAST: IOPAMIDOL 61 % INTRAVENOUS SOLUTION (MULTI-DOSE BULK PACK) Given:100 mL HISTORY: 83 years-old Male with shortness of breath. COMPARISON: None. FINDINGS: No focal lung consolidation, pneumothorax or pleural effusion. No suspicious pulmonary nodule. There is moderate elevation of the right hemidiaphragm.There is mucus plugging and moderate atelectasis in both lower lobes. The central airways are widely patent. The aorta is of normal course and normal caliber with mild atherosclerotic calcification. No supraclavicular, axillary, mediastinal, or hilar lymphadenopathy is seen. The heart is mildly enlarged without pericardial effusion. There is coronary artery calcification. There is no central, segmental or subsegmental pulmonary embolism. There is mild thickening of the right adrenal gland, incompletely visualized. No suspicious lytic or blastic osseous lesion or acute fracture. There are old healed left rib fractures. Procedure Note Stanislav Harrison MD - 11/19/2024 EXAMINATION: CTA OF THE CHEST WITH INTRAVENOUS CONTRAST DATE: 11/19/2024 1:52 PM TECHNIQUE: CT angiography of the chest was performed following the administration of intravenous contrast according to the pulmonary embolism protocol. The examination was performed with the adjustment of mA according to the patient size and/or the use of Iterative Reconstruction Technique. Maximum intensity projection (MIP) images were reconstructed in multiple obliquities and sent to the workstation for review. CONTRAST: IOPAMIDOL 61 % INTRAVENOUS SOLUTION (MULTI-DOSE BULK PACK) Given:100 mL HISTORY: 83 years-old Male with shortness of breath. COMPARISON: None. FINDINGS: No focal lung consolidation, pneumothorax or pleural effusion. No suspicious pulmonary nodule. There is moderate elevation of the right hemidiaphragm.There is mucus plugging and moderate atelectasis in both lower lobes. The central airways are widely patent. The aorta is of normal course and normal caliber with mild atherosclerotic calcification. No supraclavicular, axillary, mediastinal, or hilar lymphadenopathy is seen. The heart is mildly enlarged without pericardial effusion. There is coronary artery calcification. There is no central, segmental or subsegmental pulmonary embolism. There is mild thickening of the right adrenal gland, incompletely visualized. No suspicious lytic or blastic osseous lesion or acute fracture. There are old healed left rib fractures. IMPRESSION: 1. No pulmonary embolism. 2. Mucous plugging and moderate atelectasis in both lower lobes. DICTATION LOCATION: Location 1 - [facility] us Chandler Borrero MD CT ORDERABLES Final Result * (ABNORMAL) D-DIMER (11/19/2024 11:12 AM UMBRELLA FINISHER) D-DIMER QUANT 1.12(H) <0.50 ug/mL FEU 11/19/2024 11:38 AM UMBRELLA FINISHER [facility] LAB[facility] SERVICES [facility] Blood Venipuncture / Unknown 11/19/2024 11:12 AM UMBRELLA FINISHER 11/19/2024 11:16 AM UMBRELLA FINISHER Narrative [facility] - 11/19/2024 11:38 AM UMBRELLA FINISHER D-Dimer assay cutoff value for exclusion of DVT and/or PE is <0.50 ug/mL FEU. As D-Dimer levels increase naturally with age, age stratification for patients over 50 is potentially more appropriate in determining whether a patient should undergo further evaluation for DVT and/or PE than a general cutoff of 0.50 ug/mL FEU. Clinical consideration is recommended. Age Stratified Cutoff Values: 50-60 years: 0.50-0.60 ug/mL FEU 61-70 years: 0.61-0.70 ug/mL FEU 71-80 years: 0.71-0.80 ug/mL FEU us Ismael Austin MD HEMATOLOGY ORDERABLES Final Re sult [facility]# [id number] [address] [facility] [place] [address] * XR CHEST PA OR AP 1 VW (11/18/2024 8:50 AM UMBRELLA FINISHER) Only the most recent of2 resultswithin the time period is included. Anatomical Region Laterality Modality Chest Computed Radiogr aphy 11/18/2024 9:14 AM UMBRELLA FINISHER Impressions 11/18/2024 9:25 AM [employer] IMPRESSION: 1. Bibasilar opacities, right greater than left, likely atelectasis with a right basilar pneumonia not excluded. 2. Minimal bilateral pleural fluid. 3. Cardiomegaly. DICTATION LOCATION: Location 4 Narrative 11/18/2024 9:25 AM [employer] XR CHEST PA OR AP 1 VW DATE: 11/18/2024 8:50 AM HISTORY: Pneumonia. COMPARISON: 11/13/2024. FINDINGS: Lungs are underventilated. There are bibasilar opacities, right greater than left which is likely related atelectasis. A right basilar pneumonia cannot definitely be excluded. Suspected minimal bilateral pleural effusions. No pneumothorax. Cardiomegaly. Median sternotomy. Procedure Note Clay Sanchez MD - 11/18/2024 XR CHEST PA OR AP 1 VW DATE: 11/18/2024 8:50 AM HISTORY: Pneumonia. COMPARISON: 11/13/2024. FINDINGS: Lungs are underventilated. There are bibasilar opacities, right greater than left which is likely related atelectasis. A right basilar pneumonia cannot definitely be excluded. Suspected minimal bilateral pleural effusions. No pneumothorax. Cardiomegaly. Median sternotomy. IMPRESSION: 1. Bibasilar opacities, right greater than left, likely atelectasis with a right basilar pneumonia not excluded. 2. Minimal bilateral pleural fluid. 3. Cardiomegaly. DICTATION LOCATION: Location 4 Skylar Alicea MD DIAGNOSTIC IMAGING ORDERABLES Final Result * (ABNORMAL) BLOOD GAS ARTERIAL (11/18/2024 4:22 AM UMBRELLA FINISHER) PH ARTERIAL 7.41 7.35 - 7.45 11/18/2024 4:33 AM [facility] [employer] [facility] PCO2 ARTERIAL 65(H) 35 - 48 mm Hg 11/18/2024 4:33 AM [facility] [employer] [facility] PO2 ARTERIAL 74(L) 83 - 108 mm Hg 11/18/2024 4:33 AM [facility] [employer] [facility] HCO3 ARTERIAL 41(H) 22 - 26 mmol/L 11/18/2024 4:33 AM [facility] [employer] [facility] BASE EXCESS ABG 12.9(H) -2.0 - 3.0 mmol/L 11/18/2024 4:33 AM [facility] [employer] [facility] O2 SAT EST ARTERIAL 96 95 - 99 % 11/18/2024 4:33 AM [facility] [employer] [facility] P/F RATIO ARTERIAL 352 11/18/2024 4:33 AM [facility] [employer] [facility] OXYGEN MODE BIPAP/CPAP 11/18/2024 4:33 AM [facility] [employer] [facility] FIO2 21.0 21.0 - 100.0 % 11/18/2024 4:33 AM [facility] [employer] [facility] Blood, arterial Arterial / Unknown 2024 4:22 AM [employer]LL[employer] FINISHER 11/18/2024 4:25 AM [employer] FINISHER Skylar KENTG ORDERABLES Final Result [facility] [employer] [facility] MIKAELA# [id number] [address] [place] [address] * PROCALCITONIN (11/18/2024 4:15 AM U[employer]RELL[employer] FINISHER) Only the most recent of2 resultswithin the time period is included. PROCALCITONIN 0.15 <=0.25 ng/mL 11/18/2024 5:12 AM [employer] FINISHER [facility] [employer] [facility] Blood Venipuncture / Unknown 11/18/2024 4:15 AM [employer] FINISHER 11/18/2024 4:25 AM [employer] FINISHER Narrative [facility] [employer] [facility] - 11/18/2024 5:12 AM [employer] FINISHER The utility of procalcitonin is limited/NOT recommended in certain populations (e.g. newborns, dialysis/ESRD, patients with recent major surgery/trauma/green, liver cirrhosis, viral hepatitis, certain cancers, etc.). Procalcitonin levels MUST be interpreted in the context of the patient's clinical condition and CANNOT be solely relied upon for diagnosis of infection. <0.25 ng/mL: Bacterial infection unlikely, particularly lower respiratory tract infections. <0.5 ng/mL: Low risk for progression to severe sepsis/septic shock. Localized infection possible. Measurements done early (<6 hours) after systemic process starts may still be low. 0.5-2 ng/mL: Moderate risk for progression to severe sepsis/septic shock. >2 ng/mL: High risk for progression to severe sepsis/septic shock. If antibiotics ARE administered, repeat testing is recommended every 2-3 days to help guide antibiotic cessation. Once a decrease of 80% or more has occurred from baseline, discontinuation of antibiotics should strongly be considered in clinically stable patients. Procalcitonin is produced in the setting of systemic inflammation, particularly bacterial infections. It is detectable within 2-4 hours and peaks within 6-24 hours. Skylar Alicea MD CHEMISTRY ORDERABLES Final Res ult Performing Organization Address [facility]/ZIP Co de Phone Number [facility]# [id number] [address] [place] [address] * BRAIN NATRIURETIC PEPTIDE, BNP OR PROBNP (11/18/2024 4:15 AM [employer]MBRELL[employer] FINISHER) Only the most recent of2 resultswithin the time period is included. Pathologist [facility] PROBNP, N TERMINAL 98 <449 pg/mL 2024 5:07 AM [employer] FINISHER [facility] [employer] [facility] Comment: INTERPRETIVE COMMENT based on diagnosis: Diagnostic NT pro-BNP cutoffs for Heart Failure in the absence of renal failure is suggested for the following ranges <75 years: <125 pg/mL >=75 years: <450 pg/mL Exclusionary rule out cut-point for Acute Decompensated Heart Failure(ADHF) All ages: <300 pg/mL Diagnostic NT pro-BNP cutoffs for Acute Decompensated Heart Failure(ADHF) in the absence of renal failure is suggested for the following ages <50 years: > 450 pg/mL 50-75 years: > 900 pg/mL >75 years: >1800 pg/mL Blood Venipuncture / Unknown 11/18/2024 4:15 AM [employer]RE[employer] FINISHER 11/18/2024 4:25 AM [employer] FINISHER Skylar Alicea MD CHEMISTRY ORDERABLES Final Res ult Performing Organization Address [facility] Co de Phone Number [facility] [employer] [facility]# [id number] [address] [place] [address] * (ABNORMAL) PNEUMONIA PATHOGEN PCR PANEL (11/14/2024 2:16 PM UMBRELLA FINISHER) [facility] Streptococcus pneumoniae by PCR DETECTED (A) Not Detected 11/14/2024 6:41 PM [employer]RELL[employer] FINISHER [facility]OR[facility] Human Metapneumovirus by PCR DETECTED (A) Not Detected 11/14/2024 6:41 PM UMBRELLA FINISHER [facility] [employer] [facility] Sputum COUGHED SPUTUM SPECIMEN / Unknown Collection / Unknown 11/14/2024 2:16 PM U[employer]RELLA FINISHER 11/14/2024 2:26 PM UMBRELLA FINISHER [facility] LABORATORY [facility] - 11/14/2024 6:41 PM UMBRELLA FINISHER A negative result does not exclude the possibility of infection. A semi-quantitative (copies/mL) result is provided for bacteria. This panel does not distinguish between nucleic acid from live or bacteria or virus. Culture is needed for recovery of bacterial isolates and antimicrobial susceptibility testing. The Film Array Pneumonia Pathogen PCR Panel is a multiplexed nucleic acid detection test for 33 targets of bacteria, viruses, and resistance markers in respiratory specimens that cause pneumonia. Bacteria: Acinetobacter calcoaceticus-baumannii complex Enterobacter cloacae complex Escherichia coli Haemophilus influenzae Klebsiella aerogenes Klebsiella oxytoca Klebsiella pneumoniae group Moraxella catarrhalis Proteus spp. Pseudomonas aeruginosa Serratia marcescens Staphylococcus aureus Streptococcus agalactiae Streptococcus pneumoniae Streptococcus pyogenes Atypical Bacteria: Chlamydia pneumoniae Legionella pneumophila Mycoplasma pneumoniae Viruses: Adenovirus Coronavirus (229E, OC43, HKU1, NL63) Human Metapneumovirus Human Rhinovirus/Enterovirus Influenza A Influenza B Parainfluenza Virus Respiratory Syncytial Virus Antimicrobial Resistance Genes: CTX-M IMP KPC NDM OXA-48-like VIM mecA/C and MREJ Ismael Austin MD MICROBIOLOGY - GENERAL ORDERAB LES Final Result [facility]# [id number] [address] [place] [address] * SPUTUM CULTURE WITH GRAM STAIN (11/14/2024 2:16 PM UMBRELLA FINISHER) CULTURE No pathogens isolated. Normal respiratory jasper present. 11/16/2024 8:47 AM UMBRELLA FINISHER [facility] GRAM STAIN Non diagnostic pattern 11/16/2024 8:47 AM UMBRELLA FINISHER [facility] GRAM STAIN 3+ (Moderate) Polymorphonuclear WBC 11/16/2024 8:47 AM UMBRELLA FINISHER [facility] [employer] COUGHED SPUTUM SPECIMEN / Unknown Collection / Unknown 11/14/2024 2:16 PM UMBRELLA FINISHER 11/14/2024 2:26 PM UMBRELLA FINISHER Ismael Austin MD MICROBIOLOGY - GENERAL ORDERAB LES Final Result Performing Organization Address [facility] Co de Phone Number [facility]# [id number] [address] [place] [address] * MRSA PCR RAPID SCREEN (11/14/2024 2:10 PM UMBRELLA FINISHER) [facility] MRSA PCR RESULT MRSA not detected MRSA not detected 11/14/2024 4:22 PM UMBRELLA FINISHER [facility] Surveillance ANTERIOR NARES SWAB / Unknown Collection / Unknown 11/14/2024 2:10 PM UMBRELLA FINISHER 11/14/2024 2:26 PM UMBRELLA FINISHER [facility] - 11/14/2024 4:22 PM UMBRELLA FINISHER This assay is used to detect Methicillin-Resistant S. aureus (MRSA) colonization of the nares. PLEASE NOTE: This test has not been approved to monitor effectiveness of MRSA decolonization. Residual DNA may temporarily be present after successful decolonization. This test was performed using an FDA approved screening methodology. Ismael Austin MD MICROBIOLOGY - GENERAL ORDERAB LES Final Result Performing Organization Address [facility] de Phone Number [facility]# [id number] [address] [place] [address] * (ABNORMAL) RESPIRATORY PATHOGEN PCR PANEL (11/14/2024 2:10 PM UMBRELLA FINISHER) [facility] COVID-19 PCR NOT DETECTED Not Detected 11/14/2024 3:56 PM UMBRELLA FINISHER [facility] Human Metapneumovirus by PCR DETECTED(A) Not Detected 11/14/2024 3:56 PM UMBRELLA FINISHER [facility] Upper Respiratory ENTIRE NASOPHARYNX / Unknown Collection / Unknown 11/14/2024 2:10 PM UMBRELLA FINISHER 11/14/2024 2:26 PM UMBRELLA FINISHER [facility] - 11/14/2024 3:56 PM UMBRELLA FINISHER The Film Array Respiratory Panel (RP2.1) is a multiplex nucleic acid detection test for 22 targets. Viruses: Adenovirus Coronavirus HKU1, NL63, 229E, and OC43 COVID-19/Severe Acute Respiratory Syndrome Coronavirus 2 Influenza A with the following subtypes: H1, H1-2009, and H3 Influenza B Human Metapneumovirus Parainfluenza virus 1, 2, 3, and 4 Respiratory Syncytial virus (RSV) Rhinovirus/Enterovirus (cannot differentiate due to genetic similarities) Bacteria: Bordetella pertussis Bordetella parapertussis Chlamydophila pneumoniae Mycoplasma pneumoniae us Ismael Austin MD MICROBIOLOGY - GENERAL ORDERAB LES Final Result [facility] LABORATORY SERVICES [facility]# [id number] [address] [place], [place] [id number] * ECHOCARDIOGRAM W/ CONTRAST AGENT (11/14/2024 7:14 AM UMBRELLA FINISHER) EJECTION FRACTION 45 INTERFACE SYSTEM 11/14/2024 6:38 AM UMBRELLA FINISHER Narrative INTERFACE SYSTEM - 11/14/2024 9:50 AM UMBRELLA FINISHER [address] [address] [email or web address] Transthoracic Echocardiogram Patient: Kathy Rojas Study ID: [id number] Gender: M : 1940 Age: 83 Race: Height 170.2cm Study Date: 11/14/2024 Weight: 113.7kg Access. #: [id number] BP: *Referring Physician:* Jose Huff *Ordering Physician:* Jose Huff sky line yarder: Nurse: Indications: SOB / NIETO. STUDY CONCLUSIONS: SUMMARY: - Left ventricle: The cavity size was normal. Wall thickness was normal. Global systolic function is mildly reduced. For Epic reporting: the left ventricular ejection fraction is 45% . There is mild diffuse hypokinesis. The study was not technically sufficient to allow evaluation of LV diastolic dysfunction due to atrial fibrillation. - Mitral valve: Moderate regurgitation, directed posteriorly. - Left atrium: The atrium is severely dilated. - Right ventricle: The cavity size is normal. Systolic function is normal. - Right atrium: The atrium was dilated. - Pulmonary arteries: Systolic pressure was within the normal range. Cardiac Anatomy: LEFT VENTRICLE: The cavity size was normal. Wall thickness was normal. Global systolic function is mildly reduced. For Epic reporting: the left ventricular ejection fraction is 45% . There is mild diffuse hypokinesis. The study was not technically sufficient to allow evaluation of LV diastolic dysfunction due to atrial fibrillation. AORTIC VALVE: Structurally normal valve. Trileaflet. No significant regurgitation. The mean systolic gradient is 5mm Hg. The peak systolic gradient is 8mm Hg. The LVOT to aortic valve VTI ratio is 0.65. The valve area is 2.1cm^2. The ratio of LVOT to aortic valve peak velocity is 0.64. AORTA: Aortic root: The root is normal-sized. Ascending aorta: The vessel is dilated and 45.0mm diameter. MITRAL VALVE: Structurally normal valve. Inflow velocity is within the normal range. There is no evidence for stenosis. Moderate regurgitation, directed posteriorly. The mean diastolic gradient is 3mm Hg. The peak diastolic gradient is 6mm Hg. LEFT ATRIUM: The atrium is severely dilated. RIGHT VENTRICLE: The cavity size is normal. Systolic function is normal. PULMONIC VALVE: Structurally normal valve. Mild regurgitation. TRICUSPID VALVE: Structurally normal valve. Mild regurgitation. PULMONARY ARTERY: Systolic pressure was within the normal range. RIGHT ATRIUM: The atrium was dilated. SYSTEMIC VEINS: Inferior vena cava: The IVC is normal-sized. PERICARDIUM: There is no pericardial effusion. Measurements Left ventricle Value Ref KD, LAX (L) 3.5 cm 4.2 - 5.8 KD/bsa, LAX (L) 1.6 cm/m^2 2.2 - 3.0 KD, LAX chord (N) 4.2 cm 4.2 - 5.8 ESD, LAX chord (N) 3.5 cm 2.5 - 4.0 KD/bsa, LAX chord (L) 1.9 cm/m^2 2.2 - 3.0 ESD/bsa, LAX chord (N) 1.6 cm/m^2 1.3 - 2.1 FS, LAX chord (L) 15 % 25 - 43 IVS, ED (H) 1.5 cm 0.6 - 1.0 PW, ED (H) 1.2 cm 0.6 - 1.0 EDV, 2-p (N) 150 ml 62 - 150 ESV, 2-p (H) 81 ml 21 - 61 EF, 2-p (L) 46 % 52 - 72 SV, 2-p 69 ml --------- SV/bsa, 2-p 30.9 ml/m^2 --------- E', lat alejandrina, TDI (N) 12.4 cm/sec >=10.0 E/e', lat alejandrina, TDI (N) 8 <=13 E', med alejandrina, TDI (N) 11.3 cm/sec >=7.0 E/e', med alejandrina, TDI 9 --------- E', avg, TDI 11.9 cm/sec --------- E/e', avg, TDI (N) 8 <=14 LVOT Value Ref Diam, S 2.0 cm --------- Area 3.1 cm^2 --------- Peak elyssa, S 0.91 m/sec --------- VTI, S 19.7 cm --------- Right ventricle Value Ref KD minor ax, A4C base (H) 5.0 cm 2.5 - 4.1 KD minor ax, A4C mid (N) 3.5 cm 1.9 - 3.5 KD major ax, A4C (N) 8.0 cm 5.9 - 8.3 TAPSE, MM (L) 1.6 cm >=1.7 Pressure, S 35 mm Hg --------- S' lateral (L) 9.3 cm/sec >=9.5 Left atrium Value Ref AP dim, ES (H) 6.0 cm 3.0 - 4.0 AP dim index, ES (H) 2.7 cm/m^2 1.5 - 2.3 SI dim, A4C 7.6 cm --------- Area ES, A4C (H) 35 cm^2 <=20 Area/bsa ES, A4C 15.52 cm^2/m^2 --------- SI dim, A2C 7.4 cm --------- SI dim, shorter 7.4 cm --------- Vol, ES, 1-p A4C (H) 130 ml 18 - 58 Vol/bsa, ES, 1-p A4C (H) 58 ml/m^2 12 - 37 Vol, ES, 1-p A2C (H) 119 ml 18 - 58 Vol/bsa, ES, 1-p A2C (H) 53 ml/m^2 11 - 43 Vol, ES, 2-p 126 ml --------- Vol/bsa, ES, 2-p (H) 57 ml/m^2 16 - 34 LA/Ao root ratio 1.58 --------- Right atrium Value Ref SI dim, ES, A4C (H) 7.1 cm 3.4 - 5.3 SI dim/bsa, ES, A4C (H) 3.2 cm/m^2 1.8 - 3.0 Area, ES, A4C (H) 26 cm^2 10 - 18 Vol, ES, 1-p A4C 78 ml --------- Vol/bsa, ES, 1-p A4C (N) 35 ml/m^2 11 - 39 Aortic valve Value Ref Peak v, S 1.4 m/sec --------- Mean v, S 1.02 m/sec --------- VTI, S 30.1 cm --------- Mean grad, S 5 mm Hg --------- Peak grad, S 8 mm Hg --------- LVOT/AV, VTI ratio 0.65 --------- JAMES, VTI 2.1 cm^2 --------- JAMES/bsa, VTI 0.92 cm^2/m^2 --------- LVOT/AV, Vpeak ratio 0.64 --------- JAMES, Vmax 2.0 cm^2 --------- JAMES/bsa, Vmax 0.9 cm^2/m^2 --------- Mitral valve Value Ref Mean v, D 0.72 m/sec --------- Peak E 0.99 m/sec --------- Decel time 210 ms --------- PHT 61 ms --------- Mean grad, D 3 mm Hg --------- Peak grad, D 6 mm Hg --------- A-VTI 24.3 cm --------- MVA, PHT 3.6 cm^2 --------- MVA/bsa, PHT 1.62 cm^2/m^2 --------- Pulmonic valve Value Ref Peak v, S 1 m/sec --------- Accel time 99 ms --------- Peak grad, S 4 mm Hg --------- Tricuspid valve Value Ref TR peak v (N) 2.7 m/sec <=2.8 Peak RV-RA grad, S 30 mm Hg --------- Aortic root Value Ref Root diam, 3.8 cm --------- Ascending aorta Value Ref AAo AP diam, S 4.5 cm --------- AAo AP diam/bsa, S 2.0 cm/m^2 --------- Pulmonary artery Value Ref Pressure, S 31 mm Hg --------- Systemic veins Value Ref Estimated RA pressure 5 mm Hg --------- Legend: (L) and (H) denisha values outside specified reference range. (N) arellano values inside specified reference range. Procedure data: Procedure information: A transthoracic echocardiogram was performed. Scanning was performed from the parasternal, apical, and subcostal acoustic windows. Intravenous contrast (Definity) was administered. Transthoracic echocardiogram. Complete 2D, complete spectral Doppler, and color Doppler. Birthdate: Patient birthdate: 1940. Age: Patient is 83year(s) old. Sex: gender: male. Height: 170.2cm. 67in. Weight: 113.7kg. 250.7lb. Body mass index: 39.3kg/m^2. Body surface area: 2.23m^2. Study date: Study date: 11/14/2024. Study time: 06:38 AM. Prepared and Electronically Authenticated Amara Escudero MD [id number] Procedure Note Amara Escudero MD - 11/14/[address] [address] [email or web address] Transthoracic Echocardiogram Patient: Kathy Rojas Study ID: [id number] Gender: M :1940 Age: 83 Race: Height 170.2cm Study Date:11/14/2024 Weight: 113.7kg Access. #:[id number] BP: *Referring Physician:* Jose Huff *Ordering Physician:Jose Martin sky line yarder: Nurse: Indications: SOB / NIETO. STUDY CONCLUSIONS: SUMMARY: - Left ventricle: The cavity size was normal. Wall thickness was normal. Global systolic function is mildly reduced. For Epic reporting: theleft ventricular ejection fraction is 45% . There is mild diffusehypokinesis. The study was not technically sufficient to allow evaluation of LVdiastolic dysfunction due to atrial fibrillation. - Mitral valve: Moderate regurgitation, directed posteriorly. - Left atrium: The atrium is severely dilated. - Right ventricle: The cavity size is normal. Systolic function isnormal. - Right atrium: The atrium was dilated. - Pulmonary arteries: Systolic pressure was within the normal range. Cardiac Anatomy: LEFT VENTRICLE: The cavity size was normal. Wall thickness was normal.Global systolic function is mildly reduced. For Epic reporting: the leftventricular ejection fraction is 45% . There is mild diffuse hypokinesis. The studywas not technically sufficient to allow evaluation of LV diastolic dysfunctiondue to atrial fibrillation. AORTIC VALVE: Structurally normal valve. Trileaflet. No significant regurgitation. The mean systolic gradient is 5mm Hg. The peak systolic gradient is 8mm Hg. The LVOT to aortic valve VTI ratio is 0.65. The valvearea is 2.1cm^2. The ratio of LVOT to aortic valve peak velocity is 0.64. AORTA: Aortic root: The root is normal-sized. Ascending aorta: The vessel is dilated and 45.0mm diameter. MITRAL VALVE: Structurally normal valve. Inflow velocity is withinthe normal range. There is no evidence for stenosis. Moderateregurgitation, directed posteriorly. The mean diastolic gradient is 3mm Hg. The peak diastolic gradient is 6mm Hg. LEFT ATRIUM: The atrium is severely dilated. RIGHT VENTRICLE: The cavity size is normal. Systolic function isnormal. PULMONIC VALVE: Structurally normal valve. Mild regurgitation. TRICUSPID VALVE: Structurally normal valve. Mild regurgitation. PULMONARY ARTERY: Systolic pressure was within the normal range. RIGHT ATRIUM: The atrium was dilated. SYSTEMIC VEINS: Inferior vena cava: The IVC is normal-sized. PERICARDIUM: There is no pericardial effusion. Measurements Left ventricle Value Ref KD, LAX (L) 3.5 cm 4.2 - 5.8 KD/bsa, LAX (L) 1.6 cm/m^2 2.2 - 3.0 KD, LAX chord (N) 4.2 cm 4.2 - 5.8 ESD, LAX chord (N) 3.5 cm 2.5 - 4.0 KD/bsa, LAX chord (L) 1.9 cm/m^2 2.2 - 3.0 ESD/bsa, LAX chord (N) 1.6 cm/m^2 1.3 - 2.1 FS, LAX chord (L) 15 % 25 - 43 IVS, ED (H) 1.5 cm 0.6 - 1.0 PW, ED (H) 1.2 cm 0.6 - 1.0 EDV, 2-p (N) 150 ml 62 - 150 ESV, 2-p (H) 81 ml 21 - 61 EF, 2-p (L) 46 % 52 - 72 SV, 2-p 69 ml --------- SV/bsa, 2-p 30.9 ml/m^2 --------- E', lat alejandrina, TDI (N) 12.4 cm/sec >=10.0 E/e', lat alejandrina, TDI (N) 8 <=13 E', med alejandrina, TDI (N) 11.3 cm/sec >=7.0 E/e', med alejandrina, TDI 9 --------- E', avg, TDI 11.9 cm/sec --------- E/e', avg, TDI (N) 8 <=14 LVOT Value Ref Diam, S 2.0 cm --------- Area 3.1 cm^2 --------- Peak elyssa, S 0.91 m/sec --------- VTI, S 19.7 cm --------- Right ventricle Value Ref KD minor ax, A4C base (H) 5.0 cm 2.5 - 4.1 KD minor ax, A4C mid (N) 3.5 cm 1.9 - 3.5 KD major ax, A4C (N) 8.0 cm 5.9 - 8.3 TAPSE, MM (L) 1.6 cm >=1.7 Pressure, S 35 mm Hg --------- S' lateral (L) 9.3 cm/sec >=9.5 Left atrium Value Ref AP dim, ES (H) 6.0 cm 3.0 - 4.0 AP dim index, ES (H) 2.7 cm/m^2 1.5 - 2.3 SI dim, A4C 7.6 cm --------- Area ES, A4C (H) 35 cm^2 <=20 Area/bsa ES, A4C 15.52 cm^2/m^2 --------- SI dim, A2C 7.4 cm --------- SI dim, shorter 7.4 cm --------- Vol, ES, 1-p A4C (H) 130 ml 18 - 58 Vol/bsa, ES, 1-p A4C (H) 58 ml/m^2 12 - 37 Vol, ES, 1-p A2C (H) 119 ml 18 - 58 Vol/bsa, ES, 1-p A2C (H) 53 ml/m^2 11 - 43 Vol, ES, 2-p 126 ml --------- Vol/bsa, ES, 2-p (H) 57 ml/m^2 16 - 34 LA/Ao root ratio 1.58 --------- Right atrium Value Ref SI dim, ES, A4C (H) 7.1 cm 3.4 - 5.3 SI dim/bsa, ES, A4C (H) 3.2 cm/m^2 1.8 - 3.0 Area, ES, A4C (H) 26 cm^2 10 - 18 Vol, ES, 1-p A4C 78 ml --------- Vol/bsa, ES, 1-p A4C (N) 35 ml/m^2 11 - 39 Aortic valve Value Ref Peak v, S 1.4 m/sec --------- Mean v, S 1.02 m/sec --------- VTI, S 30.1 cm --------- Mean grad, S 5 mm Hg --------- Peak grad, S 8 mm Hg --------- LVOT/AV, VTI ratio 0.65 --------- JAMES, VTI 2.1 cm^2 --------- JAMES/bsa, VTI 0.92 cm^2/m^2 --------- LVOT/AV, Vpeak ratio 0.64 --------- JAMES, Vmax 2.0 cm^2 --------- JAMES/bsa, Vmax 0.9 cm^2/m^2 --------- Mitral valve Value Ref Mean v, D 0.72 m/sec --------- Peak E 0.99 m/sec --------- Decel time 210 ms --------- PHT 61 ms --------- Mean grad, D 3 mm Hg --------- Peak grad, D 6 mm Hg --------- A-VTI 24.3 cm --------- MVA, PHT 3.6 cm^2 --------- MVA/bsa, PHT 1.62 cm^2/m^2 --------- Pulmonic valve Value Ref Peak v, S 1 m/sec --------- Accel time 99 ms --------- Peak grad, S 4 mm Hg --------- Tricuspid valve Value Ref TR peak v (N) 2.7 m/sec <=2.8 Peak RV-RA grad, S 30 mm Hg --------- Aortic root Value Ref Root diam, 3.8 cm --------- Ascending aorta Value Ref AAo AP diam, S 4.5 cm --------- AAo AP diam/bsa, S 2.0 cm/m^2 --------- Pulmonary artery Value Ref Pressure, S 31 mm Hg --------- Systemic veins Value Ref Estimated RA pressure 5 mm Hg --------- Legend: (L) and (H) denisha values outside specified reference range. (N) arellano values inside specified reference range. Procedure data: Procedure information: A transthoracic echocardiogram was performed.Scanning was performed from the parasternal, apical, and subcostal acousticwindows. Intravenous contrast (Definity) was administered. Transthoracic echocardiogram. Complete 2D, complete spectral Doppler, and colorDoppler. Birthdate: Patient birthdate: 1940. Age: Patient is 83year(s)old. Sex: gender: male. Height: 170.2cm. 67in. Weight: 113.7kg.250.7lb. Body mass index: 39.3kg/m^2. Body surface area: 2.23m^2. Studydate: Study date: 11/14/2024. Study time: 06:38 AM. Prepared andElectronically Authenticated Amara Escudero MD [id number] us Jose Huff MD ORDERABLES Final Result INTERFACE SYSTEM Refer to clinic/hospital department * VANCOMYCIN LEVEL RANDOM (11/14/2024 4:58 AM UMBRELLA FINISHER) VANCOMYCIN, RANDOM 12.9 See Comment ug/mL 11/14/2024 6:02 AM UMBRELLA FINISHER [facility] LABORATORY [facility] Blood Venipuncture / Unknown 11/14/2024 4:58 AM UMBRELLA FINISHER 11/14/2024 5:05 AM UMBRELLA FINISHER Narrative [employer] LABORATORY [facility] - 11/14/2024 6:02 AM UMBRELLA FINISHER Vancomycin Trough Therapeutic Range = 10.0 - 20.0 ug/mL Vancomycin Trough Toxic Level = >25.0 ug/mL Ismael Austin MD CHEMISTRY ORDERABLES Final Res ult Performing Organization Address [facility]/ZIP Co de Phone Number [facility] [employer] [facility]# [id number] [address] [place] [address] * (ABNORMAL) HEMOGLOBIN AND HEMATOCRIT (11/13/2024 5:32 PM UMBRELLA FINISHER) HEMOGLOBIN 13.1(L) 13.6 - 16.5 g/dL 11/13/2024 6:11 PM [facility] [employer] [facility] HEMATOCRIT 40.7 40.0 - 48.0 % 11/13/2024 6:11 PM [facility] [employer] [facility] Blood Venipuncture / Unknown 11/13/2024 5:32 PM UMBRELLA FINISHER 11/13/2024 5:39 PM [employer] FINISHER Ismael Austin MD HEMATOLOGY ORDERABLES Final Re sult Performing Organization Address [facility]/ZIP Co de Phone Number [facility] [employer] [facility]# [id number] [address] [place] [address] * (ABNORMAL) TROPONIN 6 HR, 5TH GEN (11/13/2024 8:19 AM UMBRELLA FINISHER) TROPONIN T, 6 HR 5TH GEN 26(H) <=15 ng/L 11/13/2024 9:59 AM UMBRELLA FINISHER [employer] [facility] DELTA 6HR TROPONIN T -1 See Interp. 11/13/2024 9:59 AM U[employer]RELL[employer] FINISH[employer] [facility] Blood Venipuncture / Unknown 11/13/2024 8:19 AM U[employer]RELLA FINISHER 11/13/2024 8:59 AM UMBRELLA FINISHER Narrative [facility] LABORATORY SERVICES [facility] - 11/13/2024 9:59 AM U[employer]RE[employer] FINISHER Troponin elevated. Delta indeterminate. Delay in collection of timed specimen beyond recommended collection interval. Results must be interpreted in clinical context. us Jose Hfuf MD CHEMISTRY ORDERABLES Final Resul t [facility] LABORATORY [facility] CLIA# [id number] [address] [facility] [place] [address] * EKG 12-LEAD (11/13/2024 5:20 AM UMBRELLA FINISHER) 11/13/2024 5:20 AM UMBRELLA FINISHER Narrative INTERFACE SYSTEM - 11/13/2024 8:16 AM UMBRELLA FINISHER [facility] [address] [place] [address] Test Date: 2024-11-13 Pat Name: KATHY ROJAS Department: 58 Room: [address] [place] [address] Gender: Male Tourist Cabin Keeper: Mary LYLES: 1940 Requested By: DEENA DENIS Order Number: [id number] Reading : Jae Caputo Measurements Intervals [place] Rate: 88 P: 0 NJ: 0 QRS: 2 QRSD: 113 T: 149 QT: 393 QTc: 478 Interpretive Statements ATRIAL FIBRILLATION WITH ABERRANT CONDUCTION OR VENTRICULAR PREMATURE COMPLEXES MODERATE INTRAVENTRICULAR CONDUCTION DELAY [110+ ms QRS DURATION] NONSPECIFIC T-WAVE ABNORMALITY Possible inferior infarct Electronically Signed On 11-13-2024 8:16:16 UMBRELLA FINISHER by Jae Caputo Procedure Note Jae Caputo MD - 11/13/2024 [facility] [address] [place] [address] Test Date: 2024-11-13 Pat Name: KATHY ROJAS Department: 58 Room: [address] [place] [address] Gender: Male Tourist Cabin Keeper: Mary LYLES: 1940 Requested By: DEENA DENIS Order Number: [id number] Reading : Jae Caputo Measurements Intervals [place] Rate: 88 P: 0 NJ: 0 QRS: 2 QRSD: 113 T: 149 QT: 393 QTc: 478 Interpretive Statements ATRIAL FIBRILLATION WITH ABERRANT CONDUCTION OR VENTRICULAR PREMATURE COMPLEXES MODERATE INTRAVENTRICULAR CONDUCTION DELAY [110+ ms QRS DURATION] NONSPECIFIC T-WAVE ABNORMALITY Possible inferior infarct Electronically Signed On 11-13-2024 8:16:16 UMBRELLA FINISHER by Jae Caputo Jsoe Huff MD ECG ORDERABLES Final Result INTERFACE SYSTEM Refer to clinic/hospital department * (ABNORMAL) TROPONIN 2 HR, 5TH GEN (11/13/2024 3:56 AM UMBRELLA FINISHER) TROPONIN T, 2 HR 5TH GEN 44(H) <=15 ng/L 11/13/2024 4:50 AM UMBRELLA FINISHER [employer] [facility] DELTA 2HR TROPONIN T 17(HH) See Interp. 11/13/2024 4:50 AM [facility] [employer] [facility] Blood Venipuncture / Unknown 11/13/2024 3:56 AM UMBRELLA FINISHER 11/13/2024 4:07 AM UMBRELLA FINISHER [facility] [employer] [facility] - 11/13/2024 4:50 AM UMBRELLA FINISHER Troponin elevated. Delta significant change. Jose Huff MD CHEMISTRY ORDERABLES Final Resul t Performing Organization Address City/[facility] Co de Phone Number [facility] [employer] [facility]# [id number] [address] [facility] [place] [address] * (ABNORMAL) URINALYSIS WITH REFLEX MICROSCOPIC (11/13/2024 2:16 AM UMBRELLA FINISHER) COLOR UA Yellow Pale to Dark Yellow 11/13/2024 2:49 AM UMBRELLA FINISHER [facility] CLARITY UA Clear Clear 11/13/2024 2:49 AM [employer]RELL[employer] FINISHER [facility] SPECIFIC GRAVITY UA 1.018 1.003 - 1.035 11/13/2024 2:49 AM [facility] [employer] [facility] PH UA 6.0 5.0 - 8.0 11/13/2024 2:49 AM [facility] [employer] [facility] LEUKOCYTE ESTERASE UA Negative Negative 11/13/2024 2:49 AM [employer]RELL[employer] FINISHER [facility] NITRITE UA Negative Negative 11/13/2024 2:49 AM [facility] [employer] [facility] PROTEIN UA Negative Negative 11/13/2024 2:49 AM [facility] [employer] [facility] GLUCOSE UA 3+(A) Negative 11/13/2024 2:49 AM [facility] [facility] KETONES UA Negative Negative 11/13/2024 2:49 AM [facility] [employer] [facility] UROBILINOGEN UA Normal <2.0 mg/dL 2:49 AM [facility] [employer] [facility] BILIRUBIN UA Negative Negative 11/13/2024 2:49 AM [facility] [employer] [facility] BLOOD UA 2+(A) Negative 11/13/2024 2:49 AM [facility] [employer] [facility] WBC UA 0-2 0 - 2 /hpf 11/13/2024 2:49 AM [facility] [employer] [facility] RBC UA 11-25(A) 0 - 2 /hpf 11/13/2024 2:49 AM [facility] [employer] [facility] BACTERIA UA Negative Negative /hpf 11/13/2024 2:49 AM [facility] [employer] [facility] Urine (Urine, indwelling (Carias) catheter) Collection / Unknown 11/13/2024 2:16 AM UMBRELLA FINISHER 11/13/2024 2:35 AM [facility] Jose Huff MD URINE ORDERABLES Final Result [facility] [facility]# [id number] [address] [place] [address] * (ABNORMAL) BLOOD GAS VENOUS (11/13/2024 2:12 AM UMBRELLA FINISHER) PH, VENOUS 7.38 7.32 - 7.43 11/13/2024 2:26 AM [facility] [employer] [facility] PCO2 VENOUS 66(H) 38 - 50 mm Hg 11/13/2024 2:26 AM [facility] [employer] [facility] PO2 VENOUS 159(H) 25 - 40 mm Hg 11/13/2024 2:26 AM [facility] [employer] [facility] HCO3 VENOUS 38(H) 22 - 29 mmol/L 2:26 AM [facility] LABORATORY [facility] BASE EXCESS VENOUS 10.4 Reference Range Not Established mmol/L 11/13/2024 2:26 AM [facility]ORATORY [facility] HEMOGLOBIN VENOUS 13.8 No Ref Range Estab g/dL 11/13/2024 2:26 AM [facility] LABORATORY [facility] O2 SAT EST VENOUS 100(H) 40 - 70 % 11/13/2024 2:26 AM [facility] [employer] [facility] OXYGEN MODE High Flow Nasal Cannula 11/13/2024 2:26 AM [facility] [employer] [facility] LITER FLOW 10.0 L/min 11/13/2024 2:26 AM [facility] [employer] [facility] Blood, venous Venipuncture / Unknown 11/13/2024 2:12 AM U[employer]RELLA FINISHER 11/13/2024 2:17 AM [employer]RELLA FINISHER Jose Huff MD ABG ORDERABLES Final Result [facility] [employer] [facility] CLIA# [id number] [address] [place] [address] * (ABNORMAL) TROPONIN BASELINE, 5TH GEN (11/13/2024 2:10 AM UMBRELLA FINISHER) TROPONIN T, BASELINE 5TH GEN 27(H) <=15 ng/L 11/13/2024 2:49 AM [facility] [employer] [facility] Blood Venipuncture / Unknown 11/13/2024 2:10 AM UMBRELLA FINISHER 11/13/2024 2:17 AM UMBRELLA FINISHER Narrative [facility] LABORATORY [facility] - 11/13/2024 2:49 AM UMBRELLA FINISHER Troponin elevated. Jose Huff MD CHEMISTRY ORDERABLES Final Resul t [facility] [employer] [facility] CLIA# [id number] [address] [place] [address] * (ABNORMAL) COMPREHENSIVE METABOLIC PANEL (11/13/2024 2:10 AM [facility]) [facility] SODIUM 140 136 - 145 mmol/L 11/13/2024 2:49 AM [facility] [employer] LABORATORY [facility] POTASSIUM 3.9 3.5 - 5.0 mmol/L 11/13/2024 2:49 AM [facility] LABORATORY [facility] CHLORIDE 93(L) 98 - 107 mmol/L 11/13/2024 2:49 AM [facility] CO2 34(H) 22 - 29 mmol/L 11/13/2024 2:49 AM [facility] [employer] LABORATORY [facility] CALCIUM 9.4 8.6 - 10.2 mg/dL 11/13/2024 2:49 AM [facility] BUN 30(H) 8 - 23 mg/dL 11/13/2024 2:49 AM [facility] LABORATORY [facility] CREATININE 1.04 0.67 - 1.17 mg/dL 11/13/2024 2:49 AM [facility] Comment:The GFR result is no t clinically significant on patients <18 or >70 years of age. GLUCOSE 281(H) 74 - 99 mg/dL 11/13/2024 2:49 AM [facility] LABORATORY [facility] TOTAL PROTEIN 6.8 6.7 - 8.6 g/dL 11/13/2024 2:49 AM [facility] ALBUMIN 3.5 3.5 - 5.2 g/dL 11/13/2024 2:49 AM [facility] BILIRUBIN TOTAL 0.6 0.2 - 1.1 mg/dL 11/13/2024 2:49 AM [facility] [employer] LABORATORY [facility] ALKALINE PHOSPHATASE 350(H) 40 - 129 U/L 11/13/2024 2:49 AM [facility] [employer] LABORATORY [facility] AST 23 <41 U/L 11/13/2024 2:49 AM [facility] Comment:Hemolysis present. R esult may be falsely elevated. ALT 9 <42 U/L 11/13/2024 2:49 AM [facility] [employer] LABORATORY [facility] GFR >60 mL/min/1.7 3 sq meter 11/13/2024 2:49 AM UMBRELLA FINISHER [facility] [employer] [facility] Comment:eGFR calculated with 2020 CKD-EPI equation. Vegetarian diet, extremely high or low muscle mass, and may affect results. Cystatin C with Glomerular Filtration Rate is a suitable alternative for these patients. ANION GAP 13 8 - 16 mmol/L 11/13/2024 2:49 AM [facility] [employer] [facility] Blood Venipuncture / Unknown 11/13/2024 2:10 AM UMBRELLA FINISHER 11/13/2024 2:17 AM UMBRELLA FINISHER Narrative [facility] [employer] [facility] - 11/13/2024 2:49 AM UMBRELLA FINISHER Samples containing indocyanine green cause interferences on Total and/or Direct Bilirubin and must not be measured. Jose Huff MD CHEMISTRY ORDERABLES Final Resul t [facility] [employer] [facility]# [id number] [address] [place] [address] from Last 3 Months Insurance MEDICAID [place] MEDICARE PART A AND B Advance Directives For more information, please contact: [phone] * Full Code (Latest Code Status on File) Date Activated Date Inactivated Comments 11/16/2024 1:34 PM 11/21/2024 9:04 PM * Default Full Code - Needs Discussion Date Activated Date Inactivated Comments 11/13/2024 5:11 AM 11/16/2024 1:34 PM * Default Full Code - Needs Discussion Date Activated Date Inactivated Comments 11/13/2024 1:37 AM 11/13/2024 5:11 AM Care Teams [employer] Press Operator Relationship Specialty Start Date End Date Galen Don DO [address] [place] [address] PCP - General Family Practice 11/13/24
--- OUTSIDE RECORDS SUMMARY | 2025-02-08 17:22 | XMS_ITS | Continuity of Care Document ---
Author Organization [employer] [place] Address [address] [place] [address] [address] [place] [address] Phone Care Team Providers Care Washroom Operator Name Role Phone Wang Blank PT Unavailable Unavailable Procedures Procedure Date PT Evaluation Low Complexity Therapeutic Activities Neuromuscular Re-Ed Therapeutic Activities Therapeutic Activities Therapeutic Activities Therapeutic Activities Neuromuscular Re-Ed Therapeutic Activities Neuromuscular Re-Ed Neuromuscular Re-Ed Therapeutic Exercise Therapeutic Activities Neuromuscular Re-Ed PT Evaluation Moderate Complexity Neuromuscular Re-Ed Therapeutic Exercise Therapeutic Exercise Manual Therapy Hot or Cold Pack Electrical Stimulation Therapeutic Activities Neuromuscular Re-Ed Manual Therapy Hot or Cold Pack Electrical Stimulation Therapeutic Activities Manual Therapy Hot or Cold Pack Electrical Stimulation Neuromuscular Re-Ed Manual Therapy Hot or Cold Pack Therapeutic Exercise Neuromuscular Re-Ed Hot or Cold Pack Progress Note Therapeutic Exercise Therapeutic Activities Neuromuscular Re-Ed Manual Therapy Therapeutic Activities Neuromuscular Re-Ed Manual Therapy Electrical Stimulation Therapeutic Activities Neuromuscular Re-Ed Manual Therapy Hot or Cold Pack Therapeutic Exercise Neuromuscular Re-Ed Manual Therapy Therapeutic Activities Neuromuscular Re-Ed Manual Therapy Hot or Cold Pack Therapeutic Activities Neuromuscular Re-Ed Therapeutic Exercise Therapeutic Activities Neuromuscular Re-Ed Therapeutic Activities Neuromuscular Re-Ed Manual Therapy Hot or Cold Pack Therapeutic Activities Neuromuscular Re-Ed Manual Therapy PT Evaluation Moderate Complexity Therapeutic Exercise Manual Therapy Advance Directives Directive Yes / No Effective Date File Name No Information Encounters Encounter Description Practice Location Reason(s) For Visit Diagnoses Date Provider Providers Copied on Encounter [facility] Patel [address] [place] [address], [id number], tel:[phone] [facility] No Information 0 Richard. . Referring Provider: Denzel Ruiz, [address] [place], [address]. tel:[phone] [facility] [place] [address] [place] [address], [id number], tel:[phone] [place] No Information 9 Al Mack. . Referring Provider: Denzel Ruiz, [address] [place], [address]. tel:[phone] [facility], [place], [place], [id number], tel:[phone] [place] No Information Dec-1 9-201 9 Makler Luke. . Referring Provider: Denzel Ruiz, [address] [place], [address]. tel:[phone] [place] [address] [address] [facility], [place], [place], [id number], tel:[phone] [place] No Information Dec-1 6-201 9 Makler Luke. . Referring Provider: Denzel Ruiz, [address] [place], [address]. tel:[phone] [place] [address] [address], [place], [place], [id number], [place] tel:[phone] [place] No Information Dec-1 2-201 9 Makler Luke. . Referring Provider: Denzel Ruiz, [address] [place], [address]. tel:[phone] [place] [address] [place], [place] [address], [place], [place], [id number], [place] tel:[phone] [place] No Information Dec-1 0-201 9 Makler Luke. . Referring Provider: Denzel Ruiz, [facility] [place], [address]. tel:[phone] [place] [address] [address] [facility], [place], [place], [id number], tel:[phone] [place] No Information Dec-0 6-201 9 Makler Luke. . Referring Provider: Denzel Ruiz, [address] [place], [address]. tel:[phone] [place] [address] [address], [place], [place], [id number], [place] tel:[phone] [place] No Information Dec-0 5-201 9 Makler Luke. . Referring Provider: Denzel Ruiz, [address] [place], [address]. tel:[phone] [place] [address] [address], [place], [place], [id number], [place] tel:[phone] [place] No Information 9 Al Mack. . Referring Provider: [place], [address]. tel:[phone] [facility] [address] [place], [place] [address], [place], [place], [id number], [place] tel:[phone] [facility] Sacrococcygeal disorders, not elsewhere classifiedLow back pain 9 Frieda Whitfieldica. [address] [place] [address], [address], [place], [address], [place]. tel:[phone] Referring Provider: [place], [address]. tel:[phone], [place], [place], [id number], [place] tel:[phone] [facility] Sacrococcygeal disorders, not elsewhere classifiedLow back pain 9 Frieda Yungssica. [address] [place] [address], [address], [place], [address], [place]. tel:[phone] Referring Provider: [place], [address]. tel:[phone] [address], [place], [place], [address], [place] tel:[phone] [facility] Sacrococcygeal disorders, not elsewhere classifiedLow back pain 9 Frieda Yungssica. [address] [facility], [address], [place], [address], [place]. tel:[phone] Referring Provider: [place], [address]. tel:[phone] [facility] [address] [facility], [place], [place], [address], [place] tel:[phone] [facility] Sacrococcygeal disorders, not elsewhere classified 9 Frieda Whitfieldica. [address] [facility], [address], [place], [address], [place]. tel:[phone] Referring Provider: [place], [address]. tel:[phone], [place], [place], [id number], [place] tel:[phone] [facility] Sacrococcygeal disorders, not elsewhere classified 9 Frieda Whitfieldica. [address] [facility], [address], [place], [address], [place]. tel:[phone] Referring Provider: [place], [address]. tel:[phone] [facility] [address] [place], [place] [address]uite [facility], [place], [place], [address], [place] tel:[phone] [facility] Sacrococcygeal disorders, not elsewhere classified 9 Frieda Whitfieldica. [address] [facility], [address], [place], [address], [place]. tel:[phone] Referring Provider: [place], [address]. tel:[phone], [place], [place], [id number], [place] tel:[phone] [facility] Sacrococcygeal disorders, not elsewhere classified 9 Friedajayant Whitfieldica. [address] [facility], [address], [place], [address], [place]. tel:[phone] Referring Provider: [place], [address]. tel:[phone] [facility] [address], [place], [place], [address], [place] tel:[phone] [facility] Sacrococcygeal disorders, not elsewhere classified 9 Friedajayant Whitfieldica. [address] [facility], [address], [place], [address], [place]. tel:[phone] Referring Provider: [place], [address]. tel:[phone] [facility] [address] [place], [place] [address]uite [facility], [place], [place], [id number], [place] tel:[phone] [facility] Sacrococcygeal disorders, not elsewhere classified 9 Friedajayant Whitfieldica. [address] [facility], [address], [place], [address], [place]. tel:[phone] Referring Provider: [place], [address]. tel:[phone] [facility] [address] [place], [place] [address]uite [facility], [place], [place], [id number], [place] tel:[phone] [facility] Sacrococcygeal disorders, not elsewhere classified 9 Friedajayant Whitfieldica. [address] [facility], [address], [place], [address], [place]. tel:[phone] Referring Provider: [place], [address]. tel:[phone] [facility] [address] [place], [place] [address], [place], [place], [address], [place] tel:[phone] [facility] Sacrococcygeal disorders, not elsewhere classified 9 Friedajayant Whitfieldica. [address] [facility], [address], [place], [address], [place]. tel:[phone] Referring Provider: [place], [address]. tel:[phone] [facility] [address], [place], [place], [address], [place] tel:[phone] [facility] Sacrococcygeal disorders, not elsewhere classified 9 Frieda Yungssica. [address] [facility], [address], [address], [place]. [phone] Referring Provider: [place], [address]. tel:[phone], [id number], [place] tel:[phone] [facility] Sacrococcygeal disorders, not elsewhere classified 9 Frieda Yungssica. [address] [facility], [address], [place], [address], [place]. tel:[phone] Referring Provider: [place], [address]. tel:[phone], [id number], [place] tel:[phone] [facility] Sacrococcygeal disorders, not elsewhere classified 9 Friedajayant Whitfieldica. [address] [facility], [address], [place], [address], [place]. tel:[phone] Referring Provider: [place], [address]. tel:[phone], [id number], [place] tel:[phone] [facility] Sacrococcygeal disorders, not elsewhere classified 0 9 Frieda Sheila. [address] [facility], [address], [place], [address], [place]. [phone] Referring Provider: [place], [address]. tel:[phone] Family History Family Member Type Diagnosis Age At Onset No Information Payers Payer name Insurance type Covered democrat ID Authoriza tion(s) Medicare [place] [id number] [facility] [id number] Social History Type Description Quantity Date Captured Comments Alcohol Use Details Unknown Caffeine Use Details Unknown Tobacco Use Status No Information Smoking Status No Information Non-Smoking Tobacco Use Details : No Details Available : No Details Available Sex Male Vital Signs Date / Time: Height Weight BMI Pulse Rate Blood Pressure Temperature Respiratory Rate Body Surface Area Head Circumference Head Circ. Percentile Wt./Zac. Percentile BMI percentile Pulse Ox Inhaled Ox 8:03 AM 67.00 in 250.00 lbs 39.1 5 kg/m eter (2) 2.31 meter(2) Chief Complaint And Reason For Visit No Information Reason For Referral Reason For Referral No Information History Of Present Illness Encounter Date Complaint History Of Prese nt Illness No Information Functional Status Date Functional Assessmen t No Information Instructions Date Instruction Additional Infor mation Giving encouragement to exercise Related to Overweight Assessments Type Assessment Date No Information Patient Care Teams Name Effective Dates (start - stop) Status Members No Information
--- OUTSIDE RECORDS SUMMARY | 2025-02-08 17:22 | XMS_ITS | Continuity of Care Document ---
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 Name Role Phone Denzel Ruiz MD Unavailable Unavailable Allergies, Adverse Reactions, Alerts Substance Reaction Status Criticality No Known Allergies Active No Inform ation Medications Medication Instructions Dosage Effective Dates (start - stop) Status Comments baclofen 10 mg tablet take .5 - 1 tablet PO TID - Active tamsulosin 0.4 mg capsule take 1 capsule by oral route every day 1/2 hour following the same meal each day 0.4 MG - Active furosemide 20 mg tablet take 1 tablet by oral route every day 20 MG - Active montelukast 10 mg tablet take 1 tablet by oral route every day in the evening 10 MG - Active Klor-Con 10 mEq tablet,extended release take 1 tablet by oral route every day with food 10 MEQ - Active carvedilol 12.5 mg tablet take 1 tablet by oral route 2 times every day with food 12.5 MG - Active warfarin 5 mg tablet take 1 tablet by or al route every day 5 MG - Active omeprazole 40 mg capsule,delayed release take 1 capsule by oral route every day before a meal 40 MG - Active doxazosin 8 mg tablet take 1 tablet by o ral route every day 8 MG - Active digoxin 125 mcg tablet take 1 tablet by oral route every day 125 MCG - Active diclofenac sodium 75 mg tablet,delayed release take 1 tablet by oral route 2 times every day 75 MG - Active budesonide 0.5 mg/2 mL suspension for nebulization inhale 2 milliliter by nebulization route 2 times every day 0.5 MG - Active Brovana 15 mcg/2 mL solution for nebulization inhale 2 milliliter by inhalation route 2 times every day 15 MCG - Active atorvastatin 10 mg tablet take 1 tablet by oral route every day 10 MG - Active Aspir-81 81 mg tablet,delayed release take 1 tablet by oral route every day - Active albuterol sulfate 2.5 mg/0.5 mL solution for nebulization inhale 0.5 milliliter by nebulization route 3 times every day 2.5 MG - Active Procedures Procedure Date Methylprednisolone 40 Mg Inj/Aspirate Mjr Joint/Bursa(Shldr, Hip, Knee, Subacrom Bursa) Office/outpatient visit,est, mod 2019 Methylprednisolone 40 Mg Inj/Aspirate Mjr Joint/Bursa(Shldr, Hip, Knee, Subacrom Bursa) Office/outpatient visit,est, mod 2018 Office/outpatient visit,est, mod 2018 Inj Procedure Sacroilliac Joint w/fluoro scopy Inc Arthrography Methylprednisolone 40 Mg Office/outpatient visit,est, mod 2018 Destruction By Neurolytic Agent Lumbar O r Sacral Destruction By Neurolytic Agent Lumbar O r Sacral E Destruction By Neurolytic Agent Lumbar O r Sacral Destruction By Neurolytic Agent Lumbar O r Sacral E Lumbar/sacral Inject Diagnostic/Therapeu tic Agent Paravertebral Facet Lumbar/sacral Inject Diag/Therap Agent P aravert 2nd Level Lumbar/sacral Inject Diag/Therap Agent 3 rd & Add'l Levels Methylprednisolone 40 Mg Lumbar/sacral Inject Diagnostic/Therapeu tic Agent Paravertebral Facet Lumbar/sacral Inject Diag/Therap Agent P aravert 2nd Level Lumbar/sacral Inject Diag/Therap Agent 3 rd & Add'l Levels Methylprednisolone 40 Mg Office/outpatient visit,est, mod 2018 Inj Procedure Sacroilliac Joint w/fluoro scopy Inc Arthrography Methylprednisolone 40 Mg Spine Xray Lumbosacral Min Of 4 Views Ap Pelvis Xray 1 Or 2 Views (Includes Judet ) Office/outpatient visit,new, mod 2018 Hip Xray 2 To 3 Views Unilateral W Pelvi s When Per Office/outpatient visit,est, mod 2018 Kenalog 10mg injection Inj/Aspirate Mjr Joint/Bursa(Shldr, Hip, Knee, Subacrom Bursa) Hip Xray 2 To 3 Views Unilateral W Pelvi s When Per Kenalog 10mg injection Inj/Aspirate Mjr Joint/Bursa(Shldr, Hip, Knee, Subacrom Bursa) Office/outpatient visit,est, mod 2017 Kenalog 10mg injection Inj/Aspirate Mjr Joint/Bursa(Shldr, Hip, Knee, Subacrom Bursa) Inj/Aspirate Mjr Joint/Bursa(Shldr, Hip, Knee, Subacrom Bursa) Kenalog 10mg injection Office/outpatient visit,est, mod 2016 Office/outpatient visit,est, low 2016 CT Lumbar Spine W/O Contrast CT Lumbar Spine W/O Contrast Physical Tx excercises each 15 min Manual therapy 1+ regions, ea 15 mn Physical Tx excercises each 15 min Manual therapy 1+ regions, ea 15 mn Physical Tx excercises each 15 min Hip Xray 2 To 3 Views Unilateral W Pelvi s When Per Office/outpatient visit,est, mod 2016 Inj/Aspirate Mjr Joint/Bursa(Shldr, Hip, Knee, Subacrom Bursa) Kenalog 10mg injection Spine Xray Lumbosacral Min Of 4 Views Ju Office/outpatient visit,new, mod 2016 Spine Xray Lumbosacral Min Of 4 Views Ju Office/outpatient visit,est, mod 2015 Inj/Aspirate Mjr Joint/Bursa(Shldr, Hip, Knee, Subacrom Bursa) Kenalog 10mg injection Shoulder Xray Complete Min Of 2 Views Au Office/outpatient visit,[facility], low 2015 Inj/Aspirate Mjr Joint/Bursa(Shldr, Hip, Knee, Subacrom Bursa) Kenalog 10mg injection Shoulder Xray Complete Min Of 2 Views Advance Directives Directive Yes / No Effective Date File Name No Information Encounters Encounter Description Practice Location Reason(s) For Visit Diagnoses Date Provider Providers Copied on Encounter Office/outpa tient visit,[facility], [facility], [address] [place] [address], [id number], tel:[phone] [place] [facility] left hip pain (chief complaint) Other chronic painTrochanteric bursitis, left hipSacroiliitis, not elsewhere classified 2-202 0 Joseph [place]. [address], [place], [place], [id number] , [place]. [phone] Office/outpa tient visit,[facility], [facility], [address] [place] [address], [id number], tel:[phone] [place] [facility] lumbar spine (chief complaint) Other chronic painLow back painPain in left hipSacroiliitis, not elsewhere classifiedTrochan teric bursitis, left hip 0-201 9 Joseph Mahoney. [address], [place], [place], [id number] , [place]. [phone] Office/outpa tient visit,est, [facility], [address] [place] [address], [id number], tel:[phone] [place] [facility] [place] lumbar spine (chief complaint) Other chronic painLow back painSacroiliitis 8-201 9 Kris Krueger. [address] [place], [place], [id number] , [place]. [phone] [facility], [address] [place] [address], [id number], [place] tel:[phone] [facility] Procedure Room SacroiliitisOther chronic pain Aug- 9 Joseph [place]. [address], [place], [place], [id number] , [place]. [phone] Office/outpa tient visit,est, mod [facility], [address] [place] [address], [id number], tel:[phone] [place] [facility] PA lumbar spine (chief complaint) Chronic SI joint painOther chronic painArthritisLow back pain 9 Kris Krueger. [address] [place], [place], [id number] , [place]. [phone] [facility], [address] [place] [address], [id number], tel:[phone] [facility] Procedure Room Spondylosis w/o myelopathy or radiculopathy, lumbar region 0 2 9 Joseph Denzel. [address], [place], [place], [id number] , [place]. tel:[phone] [facility], [address] [place] [address], [id number], [place] tel:[phone] [facility] Procedure Room Other chronic pain Sep-1 9 Joseph [place]. [address], [place], [place], [id number] , [place]. tel:[phone] [facility], [address] [place] [address], [id number], [place] tel:[phone] [facility] Procedure Room Other chronic pain Sep-0 201 9 Joseph Denzel. [address], [place], [place], [id number] , [place]. tel:[phone] [facility], [address] [place] [address], [id number], tel:[phone] [facility] Procedure Room Other chronic pain 2 9 Joseph [place]. [address], [place], [place], [id number] , [place]. tel:[phone] Office/outpa tient visit,[facility], [facility], [address] [place] [address], [id number], [place] tel:[phone] [place] [facility] lumbar spine (chief complaint) Other chronic painLow back painSacroiliac joint dysfunction of left sideLumbar spondylosis 9 Joseph Mahoney. [address], [place], [place], [id number] , [place]. tel:[phone] [facility], [address] [place] [address], [id number], [place] tel:[phone] [facility] Procedure Room Other chronic pain 9 Jsoeph Mahoney. [address], [place], [place], [id number] , [place]. tel:[phone] Office/outpa tient visit,[facility], [address] [place] [address], [id number], [place] tel:[phone] [place] [facility] lumbar spine (chief complaint) Low back painOther chronic painSacroiliac joint dysfunction of left side 9 Joseph Mahoney. [address], [place], [place], [id number] , [place]. [phone] Referring Provider: Denzel Garcia, [address], [place], [address] . tel:[phone] Office/outpa tient visit,[facility], [facility], [address] [place] [address], [id number], tel:[phone] [place] [facility] PA hip (chief complaint) Pain in left hipTrochanteric bursitis, left hip 9 Alexys Quevedo. [address] [place] [address], [id number] , . tel:[phone] Referring Provider: Emy Graves, [address] [place] [address], [id number] . tel:[phone] [facility], [address] [place] [address], [id number], tel:[phone] [place] [facility] No Information 9-201 9 Alexysrubin SinghEmy. [address] [place] [address], [id number] , . tel:[phone] Referring Provider: Robert Bartholomew, [address] [place] [address], [id number] . tel:[phone] [facility], [address] [place] [address], [id number], tel:[phone] [place] [facility] hip (chief complaint) Trochanteric bursitis, left hip 0-201 8 Puma Jones. [address] [place] [address], [id number] , . [phone] Office/outpa tient visit,est, mod [facility], [address] [place] [address], [id number], tel:[phone] [facility] PA hip (chief complaint) Pain in left hipTrochanteric bursitis, left hip 7-201 8 Alexys Emy. [address] [place] [address], [id number] , [place]. [phone] Office/outpa tient visit,est, mod [facility], [address] [place] [address], [id number], tel:[phone] [place] [facility] PA hip (chief complaint) Trochanteric bursitis, right hipTrochanteric bursitis, left hip 6-201 7 Alexys Emy. [address] [place] [address], [id number] , . tel:[phone] Office/outpa tient visit,est, low [facility], [address] [place] [address], [id number], tel:[phone] [place] [facility] PA lumbar spine (chief complaint) Midline low back pain, with sciatica presence unspecifiedSpondy lolisthesis of lumbar regionLumbar spondylosis Jean-Pierre Yuliya. [address] [place] [address], [id number] , . tel:[phone] [facility], [address] [place] [address], [id number], tel:[phone] [facility] No Information 7 Edwar Jennings. [address] [place] [address], [id number] , [place]. tel:[phone] Referring Provider: Dick Norton, [address] [place] [address], [id number] . tel:[phone] [facility], [address] [place] [address], [id number], tel:[phone] [employer] [facility] No Information 7 Edwar Jennings. [address] [place] [address], [id number] , [place]. tel:[phone] Referring Provider: Dick Norton, [address] [place] [address], [id number] . tel:[phone] [facility], [address] [place] [address], [id number], tel:[phone] [place] [facility] Trochanteric bursitis, left hip Diony Kalpesh. [address] [place] [address], [id number] , [place]. tel:[phone] Referring Provider: Robert Bartholomew, [address] [place] [address], [id number] . tel:[phone] [facility], [address] [place] [address], [id number], tel:[phone] [place] [facility] 7 Diony Kalpesh. [address] [place] [address], [id number] , [place]. tel:[phone] Referring Provider: Robert Bartholomew, [address] [place] [address], [id number] . tel:[phone] [facility], [address] [place] [address], [id number], tel:[phone] [place] [facility] Trochanteric bursitis, left hip 7 Diony Posey. [address] [place] [address], [id number] , . tel:[phone] Referring Provider: Robert Bartholomew, [address] [place] [address], [id number] . tel:[phone] Office/outpa tient visit,[facility], [address] [place] [address], [id number], tel:[phone] [place] [facility] hip (chief complaint) Chronic low back pain, unspecified back pain laterality, with sciatica presence unspecifiedOther chronic painGreater trochanteric bursitis, leftPain in left hip 7 Puma Jones. [address] [place] [address], [id number] , . tel:[phone] Referring Provider: Robert Bartholomew, [address] [place] [address], [id number] . tel:[phone] Office/outpa tient visit,[facility], [address] [place] [address], [id number], tel:[phone] [place] [facility] PA lumbar spine (chief complaint) left hip pain (chief complaint) Chronic bilateral low back pain without sciaticaOther chronic painLumbar spondylosisLeft hip pain Karlos-0 7 Buck Brewster. [address] [place] [address], [id number] , . tel:[phone] Referring Provider: Ney Christopher, [address] [place] [address], [id number] . tel:[phone] Office/outpa tient visit,[facility], [address] [place] [address], [id number], tel:[phone] [facility] shoulder (chief complaint) Incomplete rotatr-cuff tear/ruptr of l shoulder, not traumaPain in left shoulder 6 Alexys Singhtchen. [address] [place] [address], [id number] , . tel:[phone] Office/outpa tient visit,[facility], [facility], [address] [place] [address], [id number], tel:[phone] [facility] shoulder (chief complaint) Pain in left shoulderIncomplet e tear of left rotator cuff 6 Alexys Singhtchen. [address] [place] [address], [id number] , . [phone] Referring Provider: Emy Graves, [address] [place] [address], [id number] . tel:[phone] [facility], [address] [place] [address], [id number], tel:[phone] [facility] No Information 6 Alexys Singhtchen. [address] [place] [address], [id number] , . tel:[phone] Referring Provider: Robert Bartholomew, [address] [place] [address], [id number] . tel:[phone] Family History Family Member Type Diagnosis Age At Onset Problem (finding) Family history of Cardi ovascular disease Problem (finding) Family history of Diabe nate mellitus Problem (finding) Family history of hyper cholesterolemia Problem (finding) Family history of Arthr itis Problem (finding) Family history of Renal disease Immunizations Vaccine Date Status Comments Pneumo (2 yrs or older)(PPV) administered Source: Other Provider Flu (split) (3 yrs or older) administered Source: Other Provider Flu (split) (3 yrs or older) administered Source: Other Provider Flu (split) (3 yrs or older) administered Source: Other Provider Pneumo (2 yrs or older)(PPV) administered Source: Other Provider Payers Payer name Insurance type Covered democrat ID Authorelizabeth tirubin(s) Medicare-[facility] [id number] BCBS Of [facility] [id number] Social History Type Description Quantity Date Captured Comments Alcohol Use Details Unknown Caffeine Use Details Unknown Tobacco Use Status No Information Smoking Status Former smoker Non-Smoking Tobacco Use Details : No Details Available : No Details Available Sex Male Vital Signs Date / Time: Height Weight BMI Pulse Rate Blood Pressure Temperature Respiratory Rate Body Surface Area Head Circumference Head Circ. Percentile Wt./Zac. Percentile BMI percentile Pulse Ox Inhaled Ox 11:32 AM 68.00 in 120.202 kg (265.00 lbs) 40.2 9 kg/m eter (2) 83 /min 130/82 mm[Hg] 2.40 meter(2) Chief Complaint And Reason For Visit From encounter dated '12/31/2019 11:00'. left hip pain (chief complaint). Description: Mr Contreras is a 79 year old male who complains of left hip pain. He presents with pain on the left side. The symptoms occur constantly. The problem is worse. Currently the patient states that the symptoms are mild-moderate. The patient is experiencing painin the following location: lateral region on the left side. He rates his worst pain as 10/10. The symptoms are aggravated by daily activities and walking. Arsenio had a previous left hip bursa injection 10/29/19 he denies relief from this injection. He did no PT following this injection. Arsenio had bilat SI joint injections 09/05/19 he reports 70% relief for a few months following the injection. Reason For Referral Reason For Referral No Information Plan Of Treatment Date Type Action Status Referral Ordered: [facility]US AP[facility] -Allopathic & Osteopathic Physicians : Pediatrics (related to Trochanteric bursitis, left hip) ordered Referral Referred To: CLAUS APPLE [address], [place], [id number] [phone] Ordered: Referrals: Allopathic & Osteopathic Physicians : Pediatrics. CLAUS APPLE. Assume care ordered Future Order: Radiology Order Pe lvis Xray 1 Or 2 Views (Includes Judet) ([id number]), Ordered on: Ordered Future Order: Radiology Order Sp ine Xray Lumbosacral Min Of 4 Views ([id number]), Ordered on: Ordered Future Order: Radiology Order Hi p Unil W Pelvis 2-3 Views ([id number]), Ordered on: Ordered Future Order: Radiology Order Hi p Unil W Pelvis 2-3 Views ([id number]), Ordered on: Ordered Future Order: Radiology Order CT Lumbar Spine W/O Contrast ([id number]), Appointment on: Ordered Future Order: Radiology Order Sp ine Xray Lumbosacral Min Of 4 Views ([id number]), Ordered on: Ordered Future Order: Radiology Order Sh oulder Xray Complete Min Of 2 Views ([id number]), Ordered on: Ordered History Of Present Illness Encounter Date Complaint History Of Prese nt Illness left hip pain Mr Contreras is a 79 year old male who complains of left hip pain. He presents with pain on the left side. The symptoms occur constantly. The problem is worse. Currently the patient states that the symptoms are mild-moderate. The pain is described as aching, shooting, stabbing. The patient is experiencing pain in the following location: lateral region on the left side. He rates his worst pain as 10/10. The symptoms are aggravated by daily activities and walking. Arsenio had a previous left hip bursa injection 10/29/19 he denies relief from this injection. He did no PT following this injection. Arsenio had bilat SI joint injections 09/05/19 he reports 70% relief for a few months following the injection. lumbar spine Mr Contreras is a 78 year old male who complains of lumbar spine. He presents with pain. The problem is unchanged. The pain is described as aching. He rates his current pain as 8/10. He had bilateral SI joint injections with Dr Ruiz 09/05/19. These improved his symptoms 20%. He has completed physical therapy and this has helped his pain. lumbar spine Mr Contreras is a 78 year old male who complains of lumbar spine. He presents with pain on the left side. He states that the symptoms have been chronic non-traumatic. The symptoms occur intermittently. The problem is improving. Currently the patient states that the symptoms are moderate. The pain is described as aching. The patient is experiencing pain in the following location: lower back on the left side. He rates his best pain as 0/10. He rates his worst pain as 8/10. He rates his current pain as 0/10. The symptoms are aggravated by activity. Arsenio states that the symptoms are relieved by sitting. lumbar spine Mr Contreras is a 78 year old male who complains of lumbar spine. He presents with pain. He states that the symptoms have been chronic non-traumatic. The symptoms occur constantly with intermittent worsening. Currently the patient states that the symptoms are moderate-severe. The pain is described as aching. The symptoms occur with activity. He rates his best pain as 1/10. He rates his worst pain as 10/10. He rates his current pain as 9/10. The pain radiates from the lower back on the left side then to the outer thigh on the left side. The symptoms are aggravated by walking and sit to stand. Arsenio states that the symptoms are relieved by sitting and use of lumbar support. lumbar spine Mr Contreras is a 78 year old male who complains of lumbar spine. He presents with pain on the left side. He states that the symptoms have been chronic non-traumatic. He is here for follow up today. He had a left SI joint injection on 02-14-19. The pain is described as sharp, shooting and stabbing. He rates his current pain as 10/10. The symptoms are aggravated by activity. He states he has been going to physical therapy and it helps some days and doesn't really help others. lumbar spine Mr Contreras is a 78 year old male who complains of lumbar spine. He presents with pain. The symptoms occur constantly. The problem is worse. Currently the patient states that the symptoms are severe. The pain is described as aching, sharp, electrical, shooting, stabbing and throbbing. He rates his current pain as 10/10. The symptoms are aggravated by activity, bending, flexion, lifting, lying/rest, changing positions, exercise, sitting, standing and walking. Arsenio states that the symptoms are relieved by ice, lying down, sitting and injections. Prior pain medications include tylenol. Prior NSAIDs include voltaren. He has been treated to the left hip injection on 01/16/19 with Shubham Reardon. Patient has had previous therapy. He attended physical therapy and He tried PT in the past. Did 1 week. [place] this hurt more than it helped. hip hip hip hip lumbar spine Mr Contreras is a 76 year old male who complains of lumbar spine. He presents with pain. He states that the symptoms have been chronic non-traumatic. The symptoms occur constantly. The problem is worse. Currently the patient states that the symptoms are moderate-severe. The pain is described as discomforting, aching and throbbing. The patient indicates that the pain is located in the lower back. The symptoms are aggravated by walking, extension, daily activities and flexion. Arsenio states that the symptoms are relieved by sitting and rest. hip lumbar spine Mr Contreras is a 76 year old male who complains of lumbar spine. He presents with pain. He states that the symptoms have been chronic non-traumatic. The symptoms occur intermittently. Currently the patient states that the symptoms are moderate-severe. The pain is described as aching. The symptoms occur with activity. The patient indicates that the pain is located in the lower back. He rates his current pain as 2/10. The symptoms are aggravated by activity and walking. Arsenio states that the symptoms are relieved by flexion. left hip pain He presents with pain and of 1 year duration on the left side. He states that the symptoms have been chronic non-traumatic. The symptoms occur intermittently. Currently the patient states that the symptoms are moderate-severe. The pain is described as localized. The patient indicates that the pain is located in the lateral region on the left side. He rates his worst pain as 8/10. He rates his current pain as 6/10. The pain does not radiate. The symptoms are aggravated by daily activities and rotation. Arsenio states that the symptoms are relieved by rest. shoulder shoulder Functional Status Date Functional Assessmen t No Information Instructions Date Instruction Additional Infor guicho The working diagnosi s and discharge plan was discussed in detail with Arsenio. XR were reviewed and discussed. I recommended repeating injection for trochanteric bursitis today. Please see injection template for details. We will also refer him to PT for trochanteric bursitis. I recommended repeating bilateral SI joint injections in 2 weeks. I also recommended use of a rolator to help his gait. We will schedule a follow up appointment in 8 weeks. All questions and concerns were addressed; pt understands and agrees with plan. Related to Other chronic pain The risks, benefits and side effects of treatment were discussed with the patient.Left hip bursa injection completed in office today. See rachel for complete details.Will consider PT at next appointment.2-3 month follow up L Spine. Related to Other chronic pain She received 50% rel ief from bilateral SI joint injections for 2 days. Has not attended physical therapy. Is waiting until he goes to [facility]. He will attend at [employer] there. Patient had moderately tender left PSIS and moderately tender left greater trochanter bursa harness in office today. offered steroid injection to the left bursa and he declined today. Recommend starting PT as soon as possible to gain better control over the pain and help realign the SI joints.Return to clinic PRN, patient agrees with the plan Related to Other chronic pain Indicated that he jones s done well after the RFA of the lumbar spine L3-S1. Continues to have some left more than right low back pain. Describes the low back pain across the bilateral SI joints. Patient has an antalgic gait. Patient has had left SI joint injection in the past and had about 10-15% relief however, was unable to tolerate physical therapy due to increased pain.Patient has completed the lumbar RFA and the lumbar facets are nontender even with deep percussion. Left PSIS more tender than the right. Positive SI joint loading with positive SI joint testing with positive Gaenslen's, positive Doron's, positive thigh thrust. Patient may benefit from repeat SI joint injections and repeat of physical therapy. Patient's pain persist despite conservative treatment therefore, recommend Dr. Ruiz perform a series of bilateral SI joint injections. Risks, benefits, procedure reviewed with patient and spouse. At this time they would like to proceed with the plan. No sedation.Recommend physical therapy with Sheila at [facility] for low back pain, SI joint dysfunction, arthritis.Return to clinic 6-8 weeks, sooner if needed, patient agrees with the plan. If patient's pain persists despite the SI joint injections and physical therapy, he would need to be scheduled to see Dr. Ruiz. Related to Other chronic pain The risks, benefits and side effects of treatment were discussed with the patient. This patient's pain persists despite conservative management. I will do bilateral L3/4, L4/5, and L5/S1 lumbar medial branch blocks to test if radiofrequency ablation could be of benefit. I have instructed this patient to continue rehabilitation and home exercises during and after these procedures. Related to Other chronic pain Patient is not a jimbo betic. His blood sugar did elevate after his hip injection. He did have an appointment with his PCP. I did discuss how the injections will elevate his blood sugar.PT- I would like him to see Sheila at [facility]. For low back pain and left SI joint dysfunction. Please put his SI joint back into place. I would like him to get started in PT as soon as possible. I do want him to try Baclofen 10 mg .5-1 mg 3 times a day qty 90 with 2 refills. This patient's pain persists despite conservative management. I will do a series of left sided sacroiliac joint injections on this patient. I have instructed this patient to continue rehabilitation and home exercises during and after these injections. The risks, benefits and side effects of treatment were discussed with the patient. The patient verbalized an understanding of all instructions. The patient verbalized an understanding of the plan. 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
[2025-02-08 17:42] LABS: Add Urine Microscopic? YES; Appearance Urine Clear (Clear); Bilirubin Urine Negative (Negative); Blood Urine Negative (Negative); Color Urine Light Yellow (Yellow); Glucose Urine UA 3+ (Negative); Ketones Urine Negative (Negative); Leukocyte Esterase Ur Negative LEU/UL (Negative); Nitrate Urine Negative (Negative); Protein Urine Negative (Negative); Specific Grav Ur <= 1.005 (1.010-1.020)
[2025-02-08 17:47] LABS: Bacteria Urine Trace /hpf; RBC Urine 0-2 /hpf (0-2); WBC Urine 0-3 /hpf (0-3)
== END 2025-02-08 17:20 | disposition home or self-care (01) ==
LOC: CHSLAB 17:21
PROVIDERS: Visit Provider Family Medicine
DX: E11.65 Type 2 diabetes mellitus with hyperglycemia (principal); I50.33 Acute on chronic diastolic (congestive) heart failure
CPT/HCPCS: 81001

== ENCOUNTER 2025-02-26 15:09 | Outpatient (NON) | payer MEDICARE, SELFPAY ==
[2025-02-26 15:44] LABS: Creatinine Urine 26.17 mg/dL (40-278); MALB Creatinine Ratio 49.6 mg/g (0-30); Microalbumin Urine Random < 13.0 mg/L
== END 2025-02-26 15:10 | disposition home or self-care (01) ==
LOC: CHSLAB 15:11
PROVIDERS: PCP Family Medicine; Visit Provider Family Medicine
DX: E11.9 Type 2 diabetes mellitus without complications (principal)
CPT/HCPCS: 82043

== ENCOUNTER 2025-05-01 14:48 | Outpatient (CLI) | payer MEDICARE, SELFPAY ==
--- NOTE | ~2025-05-01 | XR_ITS ---
3 VIEWS LUMBAR SPINE Ordering provider: Galen Don DO History: . BAck Pain . Comparison: None. FINDINGS: VERTEBRAL BODIES:Levoscoliosis. Degenerative changes of the spine. Postoperative changes at the level of L4-5. No visible fracture or subluxation. DISK SPACES: Narrowing of the disc L2-L3, L3-L4, L4-L5 and L5-S1. Multilevel facet joint disease. SOFT TISSUES: Atherosclerotic changes of the aorta. Bilateral sacroiliitis. Sclerotic bone changes with areas of osteopenia are also seen in the right il iac bone and proximal femur. IMPRESSION: No acute osseous abnormality lumbar spine. Multilevel degenerative disc disease. Sclerotic changes with osteopenia seen in the right iliac bone and right proximal femur. Clinical cor relation advised. Reviewed, dictated and finalized at location A. IMPRESSION: No acute osseous abnormality lumbar spine. Multilevel degenerative disc disease. Sclerotic changes with osteopenia seen in the right iliac bone and right proxim al femur. Clinical correlation advised.
== END 2025-05-01 14:49 | disposition home or self-care (01) ==
LOC: CHSIMG 14:50
PROVIDERS: PCP Family Medicine; Visit Provider Family Medicine
DX: M54.50 Low back pain, unspecified (principal); M51.369 Other intervertebral disc degeneration, lumbar region without mention of lumbar back pain or lower extremity pain; M85.88 Other specified disorders of bone density and structure, other site
CPT/HCPCS: 72100